=== PATIENT | female | born 1960 | race Caucasian/White ===

== ENCOUNTER → 2016-11-24 | Outpatient (CLI) | payer BC ==
[~2016-11-24] VITALS: Ht 172.7 cm; Wt 82.9 kg
[~2016-11-24] MED LIST: ASPI81TA28 PO; HYDR-4079 PO; MGNO400 PO; MULT-506 PO; ONDA8TAB6 PO; PROC1TAB5 PO; RANI150T3 PO; VENL75CA PO; magnesium PO
[2016-11-24 13:42] VITALS: Ht 172.7 cm; Wt 82.9 kg
--- NOTE | 2016-11-24 14:05 | PAT Medication Instructions ---
Service Date Nov 24, 2016. Current Home Medication List Aspirin (Aspirin Ec), 81 MG PO QAM Hydrocodone/Acetaminophen 10MG/325MG ([place] 10MG/325MG), 1-2 TABS PO Q4H PRN for Pain Ranitidine Hcl (Zantac), 75 MG PO QAM Venlafaxine Hcl (Effexor Xr), 1 CAP PO QAM Medication Instructions For Your Scheduled Surgery - Take the following medications the morning of surgery with a sip of water: Ranitidine Hcl (Zantac), 75 MG PO QAM Venlafaxine Hcl (Effexor Xr), 1 CAP PO QAM Hydrocodone/Acetaminophen 10MG/325MG ([place]hoe 10MG/325MG), 1-2 TABS PO Q4H PRN for Pain (can take up to four hours prior to surgery if needed) Aspirin (Aspirin Ec), 81 MG PO QAM - Take the following medications as scheduled the night before surgery: Hydrocodone/Acetaminophen 10MG/325MG ([place] 10MG/325MG), 1-2 TABS PO Q4H PRN for Pain If you have any questions please call us at [phone] or [phone] ( [place]) or [phone]
--- NOTE | 2016-11-24 14:46 | DIAGNOSTIC IMAGING REPORT ---
CHEST 2 VIEWS ROUTINE CLINICAL HISTORY: PAT preoperative evaluation COMPARISON STUDY: No previous studies for comparison. FINDINGS: Nodular density versus overlap artifact with the medial superior margin of the left scapula. Lungs otherwise are clear. No evidence for cardiac enlargement. IMPRESSION: Nodular density versus overlap artifact superior left chest. CT chest is recommended to exclude a solitary pulmonary nodule Electronically signed by: Avila Brar M.D. 11/24/2016 2:44 PM Dictated Date/Time: 11/24/2016 2:40 PM
[2016-11-24 15:00] LABS: HEMATOCRIT 40.6 % (37-47); MEAN CELL VOLUME 82.4 fL (80-100); MEAN CORPUSCULAR HEMOGLOBIN 26.8 pg (25-34); MEAN CORPUSCULAR HGB CONC 32.5 g/dl (32-36); MEAN PLATELET VOLUME 9.9 fL (7.4-10.4); PLATELET COUNT 345 K/uL (130-400); RED BLOOD COUNT 4.93 M/uL (4.2-5.4)
[2016-11-24 15:08] LABS: PARTIAL THROMBOPLASTIN RATIO 1.1; PROTHROMBIN TIME (PATIENT) 10.8 SECONDS (9.0-12.0)
[2016-11-24 15:17] LABS: URINE APPEARANCE CLEAR (CLEAR); URINE BILIRUBIN NEG (NEG); URINE COLOR YELLOW; URINE NITRITE POS (NEG); URINE PH 6.5 (4.5-7.5); URINE SPECIFIC GRAVITY 1.015 (1.000-1.030); UROBILINOGEN NEG (NEG); ZZUR CULT IF INDIC CLEAN CATCH YES
[2016-11-24 15:22] LABS: BUN/CREATININE RATIO 18.5 (10-20); CALCIUM 8.6 mg/dl (8.5-10.1); CREATININE 0.62 mg/dl (0.60-1.20); POTASSIUM 3.6 mmol/L (3.5-5.1)
[2016-11-24 15:30] LABS: MANUAL MICROSCOPIC REQUIRED? NO; REVIEW REQ? NO
[2016-11-24 17:07] LABS: BASO % 0.8 %; BASO ABS # 0.07 K/uL (0-0.2); COMPLETE YES; EOS % 2.6 %; IG% 0.2 %; LYMPH % 35.8 %; LYMPH ABS # 3.26 K/uL (1.2-3.4); MONO % 6.6 %; STOMATOCYTE 1+
== END | disposition home or self-care (01) ==
LOC: C.LAB 08:00 → EDSTATUS 12-13 07:25
PROVIDERS: ATTEND Orthopaedic Surgery
DX: Z01.810 Encounter for preprocedural cardiovascular examination (principal); Z01.811 Encounter for preprocedural respiratory examination; Z01.812 Encounter for preprocedural laboratory examination; R91.8 Other nonspecific abnormal finding of lung field

== ENCOUNTER → 2016-12-12 | Outpatient (CLI) | payer BC ==
--- NOTE | 2016-12-12 09:57 | DIAGNOSTIC IMAGING REPORT ---
PET/CT SKULL-THIGH CLINICAL HISTORY: Solitary pulmonary nodule COMPARISON STUDY: Chest x-ray dated 11/24/2016 FINDINGS: Within the neck, there is minor asymmetric right-sided nasopharyngeal and oropharyngeal activity. This finding is of questionable clinical significance. Activity within neck is otherwise physiologic. Within the thorax, there is no pathologic annie activity. There is a right paratracheal lymph node at the upper limits of normal in size measuring 1 cm in short axis. There is a 15 mm irregularly marginated left apical pulmonary nodule. This is FDG avid with SUV maximum of 3.5. This should be presumed neoplastic until proven otherwise. There is underlying pulmonary emphysema. Within the abdomen and pelvis, there is physiologic urinary tract and bowel activity. There is mild left adrenal gland thickening. Adrenal gland activity is not felt to exceed background solid organ activity. There is no pathologic hepatic activity. There is no pathologic annie activity within the abdomen or pelvis. Mild increased left hip activity is felt to be arthritic. IMPRESSION: 1. 15 mm irregular marginated left apical pulmonary nodule. This is FDG avid with SUV maximum of 3.5. The nodule is viewed as suspicious for a bronchogenic carcinoma 2. Mild left adrenal gland thickening, without pathologically increased FDG activity 3. Mild asymmetric increased activity involving the right nasal and oral pharynx, finding of questionable clinical significance Electronically signed by: Chance Meade M.D. 12/12/2016 9:54 AM Dictated Date/Time: 12/12/2016 9:43 AM
== END | disposition home or self-care (01) ==
LOC: C.PET 07:26
DX: R91.1 Solitary pulmonary nodule (principal)

== ENCOUNTER → 2016-12-19 | Outpatient (CLI) | payer BC ==
[~2016-12-19] VITALS: Ht 172.7 cm; Wt 81.8 kg
[~2016-12-19] MED LIST changes: +OPTIRAY 320 IV PRN
--- NOTE | 2016-12-19 14:12 | DIAGNOSTIC IMAGING REPORT ---
CT OF THE CHEST WITH IV CONTRAST CLINICAL HISTORY: Pulmonary mass COMPARISON STUDY: PET/CT scan dated 12/12/2016 TECHNIQUE: Following the IV administration of 93 mL of Optiray-320, CT of the thorax was performed from the thoracic inlet to the lung bases. Images are reviewed in the axial, sagittal, and coronal planes. IV contrast was administered without complication. CT DOSE: 272.77 mGy.cm FINDINGS: Thyroid: Imaged portions of the thyroid gland are normal in appearance. Thoracic aorta: The thoracic aorta is normal in course and caliber, noting standard 3-vessel arch anatomy. No aneurysm or dissection is seen. Pulmonary vasculature: The pulmonary trunk is normal in caliber. There are no central filling defects identified to suggest pulmonary embolus. Note that this examination was not protocoled for the evaluation of pulmonary emboli. HEART: The heart is normal in size and configuration, without pericardial effusion. Lungs and pleural spaces: There is a spiculated 14 mm left apical pulmonary nodule suspicious for a bronchogenic carcinoma. No pleural effusions are visualized. There is pulmonary emphysema. Mediastinum: There are no pathologic nodes by size criteria. There is a 15 x 8 mm lower right paratracheal lymph node. There are prevascular nodes measuring up to 6 mm in diameter. Kaycee: Hilar lymph nodes are the upper limits of normal in size. Axilla: Clear. Upper abdomen: There is mild hepatic steatosis. There is nodular thickening of the left adrenal gland. Skeletal structures: There are no lytic or blastic osseous lesions. IMPRESSION: 1. 14 mm spiculated left apical pulmonary nodule suspicious for bronchogenic carcinoma 2. No evidence of pathologic adenopathy by size criteria 3. Emphysema 4. Nodular thickening of the left adrenal gland Electronically signed by: Chance Meade M.D. 12/19/2016 2:10 PM Dictated Date/Time: 12/19/2016 2:06 PM
[2016-12-20 07:37] VITALS: Ht 172.7 cm; Wt 81.8 kg
== END | disposition home or self-care (01) ==
LOC: C.CTS 08:00 → EDSTATUS 12-29 12:00
PROVIDERS: ATTEND Internal Medicine Critical Care Medicine
DX: R91.1 Solitary pulmonary nodule (principal); J43.9 Emphysema, unspecified; E27.9 Disorder of adrenal gland, unspecified

== ENCOUNTER → 2016-12-26 | Outpatient (CLI) | payer BC ==
[~2016-12-26] MED LIST changes: -OPTIRAY 320 IV PRN
== END | disposition home or self-care (01) ==
LOC: C.LAB 15:10
PROVIDERS: ATTEND Surgery
DX: C34.90 Malignant neoplasm of unspecified part of unspecified bronchus or lung (principal)

== ENCOUNTER → 2016-12-27 | Outpatient (CLI) | payer BC ==
--- NOTE | 2016-12-28 11:44 | PULMONARY FUNCTION TEST ---
CLINICAL DATA: A 56-year-old female with height of 68 inches and a weight of [address] Glasgow for pulmonary function test prior to surgery. Spirometry pre- and post-bronchodilator, lung volumes, and DLCO were performed. FINDINGS: Pre-bronchodilator spirometry demonstrates mild obstructive small airways disease. FVC was 104% of predicted. FEV1 was 93% of predicted. XGL20-41 was 56% of predicted. There was improvement in small airway flow after inhaled bronchodilator. FVC remained the same at 104% of predicted. FEV1 improved 4% to 97% of predicted. AJO10-88 improved 32% to 74% of predicted. Lung volumes demonstrate moderate air trapping. Residual volume was 197% of predicted. DLCO was mildly reduced at 66% of predicted. IMPRESSION: Mild obstructive airways disease with improvement after inhaled bronchodilator. Moderate elevation of residual volume suggesting moderate air trapping on lung volumes. Mild reduction in DLCO.
== END | disposition home or self-care (01) ==
LOC: C.RC 07:49
PROVIDERS: ATTEND Surgery
DX: R91.1 Solitary pulmonary nodule (principal)

== ENCOUNTER 2016-12-30 05:10 | Inpatient (IN) | payer BC ==
[2016-12-20 07:37] VITALS: BMI 27.0
[2016-12-30] VITALS (10 sets, daily range): BP systolic 92–128; BP diastolic 57–83; PULSE 90–113; TEMP 36.4–37.3; O2SAT 92–100; Ht 172.7 cm; Wt 82.9 kg
[~2016-12-30] VITALS: Ht 172.7 cm; Wt 82.9 kg
[~2016-12-30 05:10] MED LIST changes: -MGNO400 PO; -MULT-506 PO; -ONDA8TAB6 PO; -PROC1TAB5 PO; -magnesium PO
[2016-12-30] MEDS ORDERED: LACTATED RINGER'S 1000ML 1,000 ML IV SCH (06:00)
[2016-12-30] MEDS ORDERED: DEXAMETHASONE SOD INJ 4 MG/ML VIAL ONE (06:39)
[2016-12-30] MEDS ORDERED: NEOSTIGMINE METHYLSULFATE 5 MG/5 ML SYR ONE (06:39)
[2016-12-30] MEDS ORDERED: GLYCOPYRROLATE INJ 0.2 MG/ML VIAL ONE (06:39)
[2016-12-30] MEDS ORDERED: PROPOFOL IV EMULSION 10 MG/ML 20 ML VIAL IV ONE (06:39)
[2016-12-30] MEDS ORDERED: LIDOCAINE HCL 2% 2 ML VIAL (20MG/ML) ONE (06:39)
[2016-12-30] MEDS ORDERED: ONDANSETRON INJ 2 MG/ML 2 ML VIAL ONE (06:39)
[2016-12-30] MEDS ORDERED: ROCURONIUM BROMIDE 10 MG/ML 5 ML VIAL ONE ×3 (06:39→10:40)
[2016-12-30] MEDS ORDERED: MIDAZOLAM HCL 1 MG/ML 2ML VIAL ONE (06:40)
[2016-12-30] MEDS ORDERED: FENTANYL CITRATE INJ 50 MCG/1 ML 2 ML VIAL ONE ×4 (06:40→13:16)
--- NOTE | 2016-12-30 06:52 | History & Physical Bridge Note ---
H&P Re-Evaluation Bridge Note: I have examined the patient, reviewed the History & Physical and in the interval since the performance of the History & Physical I have noted the following changes of clinical significance: No changes noted
[2016-12-30] MEDS ORDERED: BUPIVACAINE LIPOSOME 1/3% 266 MG/20 ML VIAL INFIL ONE (07:02)
[2016-12-30] MEDS ORDERED: SODIUM CHLORIDE 0.9% PF 50 ML VIAL ONE (07:02)
[2016-12-30] MEDS ORDERED: LACTATED RINGER'S 1000ML 1,000 ML IV PRN (08:10)
[2016-12-30] MEDS ORDERED: GELATIN SPONGE SZ 100 ONE (08:14)
[2016-12-30] MEDS ORDERED: ONDANSETRON INJ 2 MG/ML 2 ML VIAL IV PRN ×2 (08:15→12:45)
[2016-12-30] MEDS ORDERED: FENTANYL CITRATE INJ 50 MCG/1 ML 2 ML VIAL IV PRN (08:15)
[2016-12-30] MEDS ORDERED: HYDROmorphone INJ 1 MG/ML SYR IV PRN (08:15)
[2016-12-30 10:56] LABS: ISTAT CREATININE 0.4 mg/dl (0.6-1.3); ISTAT HEMOGLOBIN 13.6 g/dl (12.0-16.0); ISTAT IONIZED CALCIUM 1.13 mmol/l (1.12-1.32)
[2016-12-30] MEDS ORDERED: VASOPRESSIN 20 UNIT/ML VIAL ONE (11:56)
[2016-12-30] MEDS ORDERED: PHENYLEPHRINE 100MCG/ML 5ML SYR ONE (11:56)
[2016-12-30] MEDS ORDERED: SURGICEL ABSORB HEMOSTAT 2IN X 14IN TOP ONE (12:33)
[2016-12-30] MEDS ORDERED: ESMOLOL HCL 10 MG/ML 10 ML VIAL ONE (13:09)
--- NOTE | 2016-12-30 13:46 | DIAGNOSTIC IMAGING REPORT ---
CHEST ONE VIEW PORTABLE CLINICAL HISTORY: Left lung mass. COMPARISON STUDY: Chest CT December 19, 2016. FINDINGS: A left chest tube is directed toward the apex. Left paramediastinal opacity is present. There may be a small left apical pneumothorax. There is no evidence of pulmonary edema. IMPRESSION: 1. Left chest tube in place. Suspected small left apical pneumothorax. 2. Expected left hemithorax volume loss with left paramediastinal opacity which is likely postsurgical. Electronically signed by: Harshad Beasley M.D. 12/30/2016 1:45 PM Dictated Date/Time: 12/30/2016 1:43 PM
--- NOTE | 2016-12-30 14:31 | Anesthesiology Progress Note ---
Anesthesia Post Op Note Date & Time December 30, 2016 at 14:30 Vital Signs Pain Intensity: 3 Vital Signs Past 12 Hours Date Time Temp Pulse Resp B/P Pulse Ox O2 Delivery O2 Flow Rate FiO2 12/30/16 13:50 108 16 133/86 100 Nasal Cannula 4 12/30/16 13:40 36.6 107 16 130/79 100 Nasal Cannula 4 12/30/16 13:30 107 16 126/81 100 Mask 5 12/30/16 13:20 104 16 124/74 100 Mask 5 12/30/16 13:10 102 18 105/80 100 Mask 10 12/30/16 13:00 36.5 103 20 112/66 100 Mask 10 12/30/16 05:50 36.8 90 18 128/74 99 Room Air Notes Mental Status: alert / awake / arousable, participated in evaluation Pt Amnestic to Procedure: Yes Nausea / Vomiting: adequately controlled Pain: adequately controlled Airway Patency, RR, SpO2: stable & adequate BP & HR: stable & adequate Hydration State: stable & adequate Anesthetic Complications: no major complications apparent
[2016-12-30] MEDS: MoRPHine SULFATE 2 MG/ML CARP IV PRN (15:22)
[2016-12-30] MEDS: METOCLOPRAMIDE HCL INJ 5 MG/ML 2 ML VIAL IV. SCH ×2 (15:26→23:44)
[2016-12-30] MEDS: CEFAZOLIN IV 2,000 MG in DEXTROSE 5% 50ML 100 ML IV SCH ×2 (15:31→23:45)
[2016-12-30] MEDS: D5W AND 1/2NSS 1,000 ML IV SCH ×2 (15:31→23:46)
--- NOTE | 2016-12-30 16:12 | OPERATIVE REPORT ---
DATE OF OPERATION: 12/30/2016 PREOPERATIVE DIAGNOSIS: Hypermetabolic mass, left upper lobe. POSTOPERATIVE DIAGNOSIS: Nonsmall cell lung carcinoma, left upper lobe. PROCEDURES: 1. Video mediastinoscopy with frozen section. 2. Left thoracoscopy with wedge resection left upper lobe mass. 3. Thoracoscopic left upper lobectomy with mediastinal lymph node dissection. SURGEON: Dr. Glasgow. SHOE STAINER SURGEONS: Ton St PA-C and Alina Elizondo 3. ANESTHESIA: Endotracheal intubation with a double lumen tube. SPECIFICS OF PROCEDURE: Galina De Leon is a very nice 56-year-old female who was serendipitously found to have a mass in her left upper lobe which turned out to be hypermetabolic on PET scan. There was no evidence of extrathoracic spread. On 12/30/2016 I took the patient to the operating room and did a video mediastinoscopy with frozen section. There was right level 4 paratracheal node, which was a bit concerning to me as was a little enlarged and had some very mild uptake on PET scan. I biopsied level 2, level 4 and level 7 nodes. These were all negative for carcinoma. She tolerated this well. Then frozen section came back normal negative. We turned the patient and did a wedge resection of this left upper lobe mass thoracoscopically. We did have to lyse some adhesions. We sent this off for frozen section and this came back as a non-small cell lung carcinoma. I then performed a thoracoscopic left upper lobectomy without difficulty. I also did a lymph node dissection taking level 5, 6, 10, 11 and 12. She tolerated it well and was extubated in the room and we had no air leak. Blood loss was negligible. PROCEDURE: The patient was brought to the operating room, laid in supine position. General anesthesia induced and endotracheal intubation was performed. Her neck was extended. She was prepped and draped in the usual sterile fashion and after appropriate timeout had been called an incision was made one fingerbreadth above the sternal notch. The sharp and blunt dissection was done down to the trachea and then a video mediastinoscope was placed. I then came upon a level 2 and level 4 node on the right which were dissected out almost its entirety. I then biopsied the level 7. I did not really do anything on the left side as the nodes were very small and on PET they were not hypermetabolic. I then slowly removed the video mediastinoscope. I did place 1 piece of Surgicel in for some oozing. I did not use the cautery very much at all except on the right level 4 area. I slowly withdrew the video mediastinoscope. There was no bleeding. 3-0 Vicryl was used to close the strap muscles and 4-0 Monocryl was used during subcuticular fashion to approximate the wound edges. She tolerated it well. Frozen section came back as all 3 lymph nodes being negative for carcinoma. After placing antimicrobial dressings on her neck we then turned the patient into the right lateral decubitus position and her left chest was prepped and draped in usual sterile fashion. Three separate thoracoscopy incisions were made. I made the first one just anterior and one interspace below the tip of the scapula and using a Veress needle infused CO2. I then put a 5 mm port, and 5 mm 0 degree camera. It could be seen there were marked adhesions of the upper lobe. These appeared to be fairly flimsy. A 10 mm incision was made in about the 7th interspace anteriorly and then in the 4th interspace about a 3 cm incision was made. Using retraction and the Harmonic scalpel I took all these adhesions down. This went very well. We were able to get these adhesions down although there was oozing from the chest wall. This was controlled with the Aquamantys. Care was taken to avoid using this near the phrenic nerve or the subclavian vessels. The mass was then able to be palpated and I grasped this and used an Endo-HARLEY stapler. I fired several times and removed a fairly large mass in an Endobag and sent it off. While waiting for this, I completed the posterior fissure quite nicely actually and continuation of pulmonary artery in the fissure. The frozen section came back as showing nonsmall cell lung carcinoma. I then continued dissection superiorly from the posterior aspect. We then flipped the lung back posteriorly and worked anteriorly and freed up the pulmonary vein without difficulty. I biopsied level 10, level 5 and level 6 nodes at that time. I was then able to go easily across the vein and put an Endo-HARLEY stapler and fired. This freed up the artery and the bronchus. I then took the apical anterior branch of the left main pulmonary artery with the Endo-HARLEY stapler. This freed up things quite nicely. After biopsying the level 11 and level 12 node I was able to get around the left upper lobe bronchus. Endo-HARLEY stapler was fired and then when this freed up I could see there was 1 large artery left which was the origin of not only the lingular artery but also ascending branch. I fired an Endo-HARLEY stapler and after firing this, we had just the anterior fissure which was divided with Endo-HARLEY staplers. The lobe was delivered off the field in an Endobag. We inflated the lung, saw no significant air leak. Exparel 266 mg was reconstituted with 60 mL of normal saline and injected into the second to eleventh interspace intrathoracically. We then placed a 24-Greenlandic chest tube through the inferior anterior thoracoscopy port. I held it in place with heavy silk suture. 0 Vicryl was used to close the muscle layers of all 3 incisions and then 4-0 Monocryl used in running subcuticular fashion to approximate the wound edges. She tolerated it well and was extubated in the room. I attest to the content of the Intraoperative Record and any orders documented therein. Any exceptions are noted below. NESTOR
[2016-12-30] MEDS: KETOROLAC TROMETHAMINE 15 MG/ML VIAL IV. SCH ×2 (16:36→23:45)
[2016-12-30] MEDS: ACETAMINOPHEN IV 1,000 MG in EMPTY BAG 0 ML IV SCH ×2 (16:37→23:45)
[2016-12-30] MEDS: DOCUSATE SODIUM 100 MG CAP PO SCH (21:08)
[2016-12-30] MEDS: OXYCODONE HCL IR 5 MG TAB (IMMEDIATE RELEASE) PO PRN (21:11)
[2016-12-31] VITALS (10 sets, daily range): BP systolic 86–109; BP diastolic 49–67; PULSE 112–149; TEMP 36.5–37.1; O2SAT 91–96
[2016-12-31] MEDS: METOCLOPRAMIDE HCL INJ 5 MG/ML 2 ML VIAL IV. SCH (06:13)
[2016-12-31] MEDS: MoRPHine SULFATE 2 MG/ML CARP IV PRN ×4 (06:18→22:25)
[2016-12-31 06:42] LABS: BASO % 0.1 %; BASO ABS # 0.01 K/uL (0-0.2); EOS % 0.3 %; HEMATOCRIT 27.1 % (37-47); IG% 0.4 %; LYMPH % 13.1 %; LYMPH ABS # 2.21 K/uL (1.2-3.4); MEAN CELL VOLUME 84.2 fL (80-100); MEAN CORPUSCULAR HEMOGLOBIN 27.3 pg (25-34); MEAN CORPUSCULAR HGB CONC 32.5 g/dl (32-36); MEAN PLATELET VOLUME 9.6 fL (7.4-10.4); MONO % 9.1 %; PLATELET COUNT 287 K/uL (130-400); RED BLOOD COUNT 3.22 M/uL (4.2-5.4); WHITE BLOOD COUNT 16.85 K/uL (4.8-10.8)
[2016-12-31] MEDS ORDERED: NURSING VERBAL MED ORDER ONE ×3 (06:45→20:00)
[2016-12-31 07:10] LABS: COMPLETE YES
[2016-12-31 07:19] LABS: BUN/CREATININE RATIO 19.4 (10-20); CALCIUM 7.5 mg/dl (8.5-10.1); CREATININE 0.71 mg/dl (0.60-1.20); POTASSIUM 3.5 mmol/L (3.5-5.1)
[2016-12-31] MEDS: ACETAMINOPHEN IV 1,000 MG in EMPTY BAG 0 ML IV SCH ×2 (07:50→16:47)
[2016-12-31] MEDS: KETOROLAC TROMETHAMINE 15 MG/ML VIAL IV. SCH ×2 (07:51→16:42)
[2016-12-31] MEDS: DOCUSATE SODIUM 100 MG CAP PO SCH ×2 (08:56→20:48)
[2016-12-31] MEDS: RANITIDINE HCL 150 MG TAB PO SCH (08:56)
[2016-12-31] MEDS: VENLAFAXINE HCL XR 75 MG CAPXR PO SCH (08:56)
--- NOTE | 2016-12-31 08:58 | DIAGNOSTIC IMAGING REPORT ---
CHEST ONE VIEW PORTABLE HISTORY: lobectomy COMPARISON: Chest 12/30/2016. FINDINGS: Left-sided chest tube terminates in the left midlung zone. Small moderate left hydropneumothorax has increased in size. The heart is normal in size. Linear densities at the right lung base favor atelectasis. The apical component of the left pneumothorax has increased in size. Small left-sided chest wall subcutaneous emphysema. Left basilar densities have progressed. IMPRESSION: Left-sided chest tube terminates in the left midlung zone. There has been interval increase in size in the small to moderate left hydropneumothorax. Electronically signed by: Christoph Hadren M.D. 12/31/2016 8:57 AM Dictated Date/Time: 12/31/2016 8:55 AM
[2016-12-31] MEDS ORDERED: ENOXAPARIN 40 MG/0.4 ML SYR SQ SCH (09:00)
[2016-12-31] MEDS ORDERED: ASPIRIN 81 MG ECTAB PO SCH (09:00)
[2016-12-31] MEDS: D5W AND 1/2NSS 1,000 ML IV SCH ×2 (09:25→20:48)
[2016-12-31] MEDS: OXYCODONE HCL IR 5 MG TAB (IMMEDIATE RELEASE) PO PRN ×2 (09:35→20:47)
--- NOTE | 2016-12-31 11:33 | SURGERY PROGRESS NOTE ---
DATE: 12/31/2016 DATE: 12/31/2016. Mrs. De Leon is seen today 1 day status post a thoracoscopic left upper lobectomy for nonsmall cell lung carcinoma. She did not sleep well. She has more pain. Her chest tube put out about 200 mL of frankly dark blood. I stripped her tube as she had a clot in the tube and now this is draining. Mrs. De Leon was on aspirin preoperatively and it appears she does have a mild coagulopathy due to this. She has bruising around her posterior thoracostomy port which is a bit unusual. She has bruising in her right arm where she had a blood pressure cuff and she has bruising around her mediastinoscopy incision which is rather mild. Her incisions are clean. Her lung does not sound bad. She still is not coughing well. She really does not have an air leak but I am a bit concerned about her x-ray as there may be some bleeding. We will get her to ambulate in the scherer and will check a chest x-ray in the morning. In addition her hemoglobin is down which I am surprised at as we really did not have that much bleeding, although she does have a raw surface of her pleural cavity where we took adhesions down. We were meticulous in our hemostasis in dealing with this. I had a long talk with the patient and her sister and her . We will see how she looks in the morning.
[2016-12-31] MEDS ORDERED: SODIUM CHLORIDE 0.9% 1000ML 1,000 ML IV ONE (20:15)
[2017-01-01] VITALS (11 sets, daily range): BP systolic 97–119; BP diastolic 57–75; PULSE 102–112; TEMP 36.6–37.2; O2SAT 91–94
[2017-01-01] MEDS: ACETAMINOPHEN IV 1,000 MG in EMPTY BAG 0 ML IV SCH ×3 (00:07→16:49)
[2017-01-01] MEDS: KETOROLAC TROMETHAMINE 15 MG/ML VIAL IV. SCH ×2 (00:13→09:20)
[2017-01-01] MEDS: D5W AND 1/2NSS 1,000 ML IV SCH ×2 (06:02→16:44)
[2017-01-01 06:08] LABS: HEMATOCRIT 20.4 % (37-47); MEAN CORPUSCULAR HEMOGLOBIN 27.1 pg (25-34); MEAN CORPUSCULAR HGB CONC 31.9 g/dl (32-36); MEAN PLATELET VOLUME 9.3 fL (7.4-10.4); PLATELET COUNT 211 K/uL (130-400)
[2017-01-01] MEDS: OXYCODONE HCL IR 5 MG TAB (IMMEDIATE RELEASE) PO PRN ×3 (06:15→21:21)
--- NOTE | 2017-01-01 07:31 | DIAGNOSTIC IMAGING REPORT ---
CHEST ONE VIEW PORTABLE CLINICAL HISTORY: Lobectomy. COMPARISON STUDY: Chest radiograph December 31, 2016. FINDINGS: Right mid and lower lung opacity has progressed. A left chest tube remains in place. Left lung airspace opacity is similar to prior exam. A moderate left hydropneumothorax is likely slightly increased in size. IMPRESSION: 1. Slight increase in size of a moderate left hydropneumothorax. Left chest tube in place. 2. Progression of right mid and lower lung opacity which favors atelectasis although pneumonia could appear similar. Persistent left lung airspace opacity. Electronically signed by: Harshad Beasley M.D. 01/01/2017 7:29 AM Dictated Date/Time: 01/01/2017 7:27 AM
[2017-01-01] MEDS: RANITIDINE HCL 150 MG TAB PO SCH (09:09)
[2017-01-01] MEDS: DOCUSATE SODIUM 100 MG CAP PO SCH ×2 (09:09→21:20)
[2017-01-01] MEDS: VENLAFAXINE HCL XR 75 MG CAPXR PO SCH (09:09)
--- NOTE | 2017-01-01 09:33 | SURGERY PROGRESS NOTE ---
DATE: 01/01/2017 Ms. De Leon was seen today, postop day #2 status post a thoracoscopic left upper lobectomy for a non-small cell lung carcinoma. She was really hurting yesterday. In addition, she was not coughing well. Over the course of the night, she has coughed much better. She coughed up some green and yellow sputum. Her x-ray looks better today. Her hemoglobin dropped rather precipitously actually. I stripped her tube yesterday and she has drained out 1100 mL total; but about 800 mL since yesterday. I initially discussed this with the nurses, kept her n.p.o. and I was going to take her to the OR for an evacuation; however, when I got here and reviewed her film it could be seen that it did look much better than yesterday. She is on room air 97% sat. Her lungs sound better. More importantly to me is she feels much better. She has been making urine. I am going to hold off on surgery and I think that she just needs blood. Her blood pressure is now up to 102/66. She has made very good urine. I think that she is settled down now. She still has some evidence of blood superiorly and laterally, but I do not think it is enough to warrant an operation. We will continue her chest tube and have her up and ambulating. Hopefully, we can get her home soon. I cannot emphasize how much better she looks today. Her lungs sound better and she is coughing very well.
[2017-01-02] VITALS: O2SAT 91
[2017-01-02] MEDS: ACETAMINOPHEN IV 1,000 MG in EMPTY BAG 0 ML IV SCH ×3 (00:08→16:54)
[2017-01-02] MEDS: D5W AND 1/2NSS 1,000 ML IV SCH ×3 (02:23→21:49)
[2017-01-02 05:25] VITALS: O2SAT 86
[2017-01-02 05:26] VITALS: O2SAT 91
--- NOTE | 2017-01-02 07:25 | DIAGNOSTIC IMAGING REPORT ---
CHEST ONE VIEW PORTABLE CLINICAL HISTORY: lobectomy COMPARISON STUDY: 01/01/2017 FINDINGS: The left-sided chest tube remains unchanged in position. There is a small amount of air within the left pleural space. There is left-sided pleural fluid/thickening. There is a persistent left para mediastinal opacity measuring 7.5 cm. There are right middle lower lung zone airspace opacity similar to the preceding study.[ IMPRESSION: Stable findings Electronically signed by: Chance Meade M.D. 01/02/2017 7:24 AM Dictated Date/Time: 01/02/2017 7:23 AM
[2017-01-02 07:26] LABS: HEMATOCRIT 26.5 % (37-47); MEAN CELL VOLUME 85.8 fL (80-100); MEAN CORPUSCULAR HEMOGLOBIN 27.8 pg (25-34); MEAN CORPUSCULAR HGB CONC 32.5 g/dl (32-36); MEAN PLATELET VOLUME 9.5 fL (7.4-10.4); PLATELET COUNT 233 K/uL (130-400); RED BLOOD COUNT 3.09 M/uL (4.2-5.4); WHITE BLOOD COUNT 11.15 K/uL (4.8-10.8)
[2017-01-02 07:41] VITALS: BP 115/62; PULSE 105; TEMP 36.7; O2SAT 92
[2017-01-02 07:58] LABS: POTASSIUM 3.2 mmol/L (3.5-5.1)
[2017-01-02] MEDS: OXYCODONE HCL IR 5 MG TAB (IMMEDIATE RELEASE) PO PRN ×2 (08:11→13:59)
[2017-01-02] MEDS: VENLAFAXINE HCL XR 75 MG CAPXR PO SCH (08:11)
[2017-01-02] MEDS: RANITIDINE HCL 150 MG TAB PO SCH (08:12)
[2017-01-02] MEDS: DOCUSATE SODIUM 100 MG CAP PO SCH ×2 (08:12→21:01)
--- NOTE | 2017-01-02 08:36 | Anesthesiology Progress Note ---
Anesthesia Post Op Note Date & Time January 02, 2017 at 08:35 Vital Signs Pain Intensity: 7.0 Vital Signs Past 12 Hours Date Time Temp Pulse Resp B/P Pulse Ox O2 Delivery O2 Flow Rate FiO2 01/02/17 07:41 36.7 105 19 115/62 92 Room Air 01/02/17 05:26 91 Room Air 01/02/17 05:25 86 Room Air 01/02/17 00:00 91 Room Air 01/01/17 23:48 37.0 111 14 119/75 93 Nasal Cannula 2.0 Humidified Air Notes Mental Status: alert / awake / arousable, participated in evaluation Pt Amnestic to Procedure: Yes Nausea / Vomiting: adequately controlled Pain: adequately controlled Airway Patency, RR, SpO2: stable & adequate BP & HR: stable & adequate Hydration State: stable & adequate Anesthetic Complications: no major complications apparent
--- NOTE | 2017-01-02 09:07 | SURGERY PROGRESS NOTE ---
DATE: 01/02/2017 Ms. De Leon is seen today on postoperative day #3 status post thoracoscopic left upper lobectomy and takedown of dense adhesions. The patient has clinically improved. She had 2 units of blood yesterday. Hemoglobin is 8.6 today from 6.5 yesterday. She has only put out 140 mL of fluid from her chest tube which is serous in the last 24 hours. Her x-ray has not really changed. She does have some blood in her chest; however, she is on room air and able to ambulate. Otherwise, she actually sounds good on auscultation. I am going to leave this as it is. If her fluid drainage continues to decrease, we will pull her chest tube out tomorrow, and let her go home. I think she is going to resorb this in her chest.
[2017-01-02 15:36] VITALS: BP 112/68; PULSE 107; TEMP 37.3; O2SAT 90
[2017-01-02 23:51] VITALS: BP 134/77; PULSE 112; TEMP 37.1; O2SAT 91
[2017-01-03] MEDS: ACETAMINOPHEN IV 1,000 MG in EMPTY BAG 0 ML IV SCH ×2 (00:23→08:15)
[2017-01-03] MEDS: OXYCODONE HCL IR 5 MG TAB (IMMEDIATE RELEASE) PO PRN ×4 (00:25→21:01)
[2017-01-03 03:12] VITALS: BP 115/72; PULSE 101; TEMP 37; O2SAT 91
[2017-01-03 07:17] LABS: HEMATOCRIT 27.2 % (37-47); MEAN CELL VOLUME 85.3 fL (80-100); MEAN CORPUSCULAR HEMOGLOBIN 26.6 pg (25-34); MEAN CORPUSCULAR HGB CONC 31.3 g/dl (32-36); MEAN PLATELET VOLUME 9.1 fL (7.4-10.4); PLATELET COUNT 289 K/uL (130-400); RED BLOOD COUNT 3.19 M/uL (4.2-5.4); WHITE BLOOD COUNT 10.74 K/uL (4.8-10.8)
[2017-01-03 07:30] VITALS: BP 113/73; PULSE 100; TEMP 36.8; O2SAT 94
[2017-01-03 07:42] LABS: CREATININE 0.42 mg/dl (0.60-1.20)
[2017-01-03] MEDS: D5W AND 1/2NSS 1,000 ML IV SCH (08:15)
[2017-01-03] MEDS: DOCUSATE SODIUM 100 MG CAP PO SCH ×2 (08:16→20:21)
[2017-01-03] MEDS: RANITIDINE HCL 150 MG TAB PO SCH (08:16)
[2017-01-03] MEDS: VENLAFAXINE HCL XR 75 MG CAPXR PO SCH (08:16)
--- NOTE | 2017-01-03 09:29 | DIAGNOSTIC IMAGING REPORT ---
CHEST ONE VIEW PORTABLE HISTORY: lobectomy COMPARISON: Chest 01/02/2017. FINDINGS: Left-sided chest tube terminates within the left midlung zone. This remains unchanged. Small left hydropneumothorax is not significantly changed. Linear density within the right midlung zone favor subsegmental atelectasis. The heart is normal in size. Improved aeration within the left suprahilar airspace opacity. IMPRESSION: 1. No change in the small left hydropneumothorax. 2. Improved aeration within the left suprahilar density. Electronically signed by: Christoph Harden M.D. 01/03/2017 9:28 AM Dictated Date/Time: 01/03/2017 9:23 AM
[2017-01-03] MEDS: ACETAMINOPHEN 325 MG TAB PO SCH ×3 (10:00→21:02)
[2017-01-03 15:23] VITALS: BP 121/69; PULSE 112; TEMP 37.2; O2SAT 91
[2017-01-03 16:00] VITALS: O2SAT 91
--- NOTE | 2017-01-03 16:50 | SURGERY PROGRESS NOTE ---
DATE: 01/03/2017 SUBJECTIVE: Ms. De Leon seen today on 01/03/2015. She is now postoperative day #4 status post thorascopic left upper lobectomy. The patient looks much better. She has made quite a bit of urine. Her vital signs are stable. Her hemoglobin is stable at 8.5. Her lung sounds fairly clear bilaterally. She has no air leak. Her x-ray looks better today. She has better aeration. She has drained a bit too much to pull the tube. She drained 350 mL of serous fluid. We are going to wait and see how this looks tomorrow. ASSESSMENT AND PLAN: 1. Postoperative day #4. The patient appears to be stable. We will need to leave her chest tube in until her drainage decreases. MTDD
[2017-01-03 23:42] VITALS: BP 117/71; PULSE 106; TEMP 37.2; O2SAT 90
[2017-01-04 02:29] VITALS: BP 110/75; PULSE 103; O2SAT 94
[2017-01-04] MEDS: MoRPHine SULFATE 2 MG/ML CARP IV PRN (02:39)
[2017-01-04] MEDS: OXYCODONE HCL IR 5 MG TAB (IMMEDIATE RELEASE) PO PRN (04:35)
[2017-01-04] MEDS: ACETAMINOPHEN 325 MG TAB PO SCH ×2 (04:35→09:34)
[2017-01-04 07:32] VITALS: BP 124/79; PULSE 106; TEMP 36.9; O2SAT 94
--- NOTE | 2017-01-04 08:31 | Discharge Instructions ---
Discharge Instructions Date of Service January 04, 2017. Admission Reason for Admission: Left Lung Mass Discharge Discharge Diagnosis / Problem: Lung Cancer Discharge Goals Goal(s): Learn about illness Activity Recommendations Activity Limitations: as noted below Lifting Limitations: none . Instructions / Follow-Up Instructions / Follow-Up 1. Do not fly or SCUBA dive until cleared to do so by Dr. Glasgow. 2. You may remove dressings in 3 days and shower thereafter. No tub baths. 3. Office appointment with Dr. Glasgow in 1-2 weeks. You will need a chest x- ray prior to appointment. Office will call you with date and time of appointment. Current Hospital Diet Patient's current hospital diet: Regular Diet Discharge Diet Recommended Diet: Regular Diet Procedures Procedures Performed: Video Mediastinoscopy with Biopsy, Left Video Assisted Thoracoscopy with Wedge Resection, Left upper lobectomy Pending Studies Studies pending at discharge: no Medical Emergencies . Who to Call and When: Medical Emergencies: If at any time you feel your situation is an emergency, please call 911 immediately. . Non-Emergent Contact Non-Emergency issues call your: Surgeon Call Non-Emergent contact if: you have a fever, your pain is not controlled, wound has increased drainage . "Provider Documentation" section prepared by Jose St. . VTE Core Measure Inpt VTE Proph given/why not?: Enoxaparin (Lovenox)SQ
--- NOTE | 2017-01-04 08:41 | DIAGNOSTIC IMAGING REPORT ---
CHEST ONE VIEW PORTABLE CLINICAL HISTORY: CT removal tube removal COMPARISON STUDY: 01/03/2017 FINDINGS: Interval removal left-sided chest tube. Unchanging small left hydropneumothorax. Unchanging increased density left hemithorax. Unchanging atelectatic infiltrative change right infrahilar region. IMPRESSION: Interval removal left-sided chest tube. No change otherwise compared to the prior date. Electronically signed by: Avila Brar M.D. 01/04/2017 8:39 AM Dictated Date/Time: 01/04/2017 8:38 AM
--- NOTE | 2017-01-04 09:04 | DISCHARGE SUMMARY ---
DISCHARGE DIAGNOSES: 1. Non-small cell lung carcinoma, left upper lobe. 2. History of cigarette smoking. 3. Degenerative joint disease, left hip. HOSPITAL COURSE: Galina is a 56-year-old female, who has osteoarthritis of her left hip and was set to undergo a left hip replacement, underwent a preoperative chest x-ray and was found to have a mass in her left upper lobe. She was referred to me, worked up and felt that she would be a candidate for a resection. I was a bit concerned about a contralateral peritracheal node on the right. On 12/30/2016, I took the patient to the operating room and did a video mediastinoscopy and biopsied this right level 4, right level 2 and the level 7 node. They were all negative for carcinoma. She was then turned on her side and we did a thoracoscopic left upper lobe wedge resection. The frozen section showed this to be a carcinoma. We proceeded with an uncomplicated left upper lobectomy and mediastinal dissection. The patient had adhesions. We took them down from a fairly large area of the anterior lateral chest wall. We took these down without difficulty, but she did ooze. I used an Aquamantys to control bleeding and we lost about 200 mL total. She did well, really did not have an air leak. I was happy with her x-ray after surgery. The following morning, I was a bit concerned, however. Her chest tube is not draining and she had some blood. Her hemoglobin also dropped. I milked her tube and got a thrombus out and then her tubes started draining. She drained over 800 mL. Her hemoglobin to 6.8 and on postop day #2, I was prepared to take her back to the operating room. However, her x-ray had improved and she had improved clinically. She stopped draining. I did give her 2 units of blood. She had bruising around all of her incisions. I think she may have had a problem with platelet function. In fact, I was prepared to give her a unit of platelets; however, she then stopped bleeding. We held her Lovenox and her aspirin. She improved greatly. She is ambulating in the hallway. She is eating well. She was on room air. She sounded much better. X-ray had improved, although she still had some fluid in her chest. I removed her chest tube, as the drainage had decreased and become serous. She was discharged home on postop day #5. I reviewed her pathology and this showed she did have a non-small cell lung carcinoma. I had removed multiple lymph nodes and one had a 2-mm focus of carcinoma. She had N1 disease, making her stage II. I discussed this with Dr. Yann Knight, who will see her as an outpatient. Patient was discharged home on postop day #5. I will see her back in the office next week and then, we will get her set up to see Dr. Knight. [facility]
[2017-01-04] MEDS: RANITIDINE HCL 150 MG TAB PO SCH (09:32)
[2017-01-04] MEDS: VENLAFAXINE HCL XR 75 MG CAPXR PO SCH (09:32)
[2017-01-04] MEDS: DOCUSATE SODIUM 100 MG CAP PO SCH (09:33)
[2017-01-04 09:39] VITALS: BP 124/79; PULSE 106; TEMP 36.9; O2SAT 94
[2017-05-02] MEDS ORDERED: magnesium PO (09:18)
[2017-05-02] MEDS ORDERED: MULT-506 PO (09:18)
== END 2017-01-04 10:05 | disposition home or self-care (01) | DRG 165 ==
LOC: ENRESERVTM → ENRESERVDT → C.ACU 05:10 → C.MSW 12:42
PROVIDERS: ADMIT Surgery; ATTEND Surgery
PROC: 0BTG4ZZ Resection of Left Upper Lung Lobe, Percutaneous Endoscopic Approach (ICD-10-PCS; principal; 2016-12-30 07:15)
PROC: 07B74ZX Excision of Thorax Lymphatic, Percutaneous Endoscopic Approach, Diagnostic (ICD-10-PCS; principal; 2016-12-30 07:15)
DX: C34.12 Malignant neoplasm of upper lobe, left bronchus or lung (principal); F17.210 Nicotine dependence, cigarettes, uncomplicated; Z79.82 Long term (current) use of aspirin; Z79.899 Other long term (current) drug therapy; Z80.3 Family history of malignant neoplasm of breast

== ENCOUNTER → 2017-01-18 | Outpatient (CLI) | payer BC ==
[~2017-01-18] MED LIST changes: +MGNO400 PO; +MULT-506 PO; +ONDA8TAB6 PO; +PROC1TAB5 PO; +magnesium PO
--- NOTE | 2017-01-18 14:27 | DIAGNOSTIC IMAGING REPORT ---
TWO VIEW CHEST CLINICAL HISTORY: Non-small cell lung cancer. FINDINGS: PA and lateral chest radiographs are compared to study dated 01/04/2017 and correlated with chest CT dated 12/19/2016. The cardiomediastinal silhouette is unremarkable. Atherosclerotic calcification is noted in the thoracic aorta. Emphysema and chronic interstitial thickening are identified. There is a left hydropneumothorax, similar appearance to previous. There is approximately 3 cm of apical pleural separation. The patient's left upper lobe lesion seen by CT is not well visualized. There is improved aeration of the left lung as compared to 01/04/2017. The right lung appears clear. There is no right-sided pneumothorax. The skeletal structures are osteopenic. Degenerative change is noted in the thoracic spine. Trace subcutaneous emphysema is seen along the left chest wall. IMPRESSION: 1. Emphysema. 2. A small left-sided hydropneumothorax is similar in appearance to 01/04/2017. 3. The patient's known left upper lobe pulmonary lesion is not well visualized. 4. There is improved aeration of the left lung as compared to previous. Electronically signed by: Shan Fan M.D. 01/18/2017 2:25 PM Dictated Date/Time: 01/18/2017 2:21 PM
== END | disposition home or self-care (01) ==
LOC: C.RAD 13:52
PROVIDERS: ATTEND Physician Assistant
DX: C34.90 Malignant neoplasm of unspecified part of unspecified bronchus or lung (principal); J94.8 Other specified pleural conditions

== ENCOUNTER → 2017-02-16 | Outpatient (CLI) | payer BC ==
--- NOTE | 2017-02-16 11:17 | DIAGNOSTIC IMAGING REPORT ---
CHEST 2 VIEWS ROUTINE HISTORY: C34.90 Non-small cell lung [id number] COMPARISON: Chest 01/18/2017. FINDINGS: Small left apical hydropneumothorax has decreased in size. There is suture material at the left hilum consistent with postoperative change. Mild volume loss within the left hemithorax persists. The right lung remains clear. The heart is normal in size. IMPRESSION: Decrease in size in the small left apical hydropneumothorax. Electronically signed by: Christoph Harden M.D. 02/16/2017 11:16 AM Dictated Date/Time: 02/16/2017 11:14 AM
== END | disposition home or self-care (01) ==
LOC: C.RAD1850 10:17
PROVIDERS: ATTEND Physician Assistant
DX: J94.8 Other specified pleural conditions (principal); C34.90 Malignant neoplasm of unspecified part of unspecified bronchus or lung

== ENCOUNTER 2017-04-04 12:11 | Observation (INO) | payer BC ==
[2017-04-04] VITALS (9 sets, daily range): BP systolic 94–129; BP diastolic 57–75; PULSE 83–106; TEMP 36.5–36.9; O2SAT 95–99; Ht 172.7 cm; Wt 82.6 kg
[~2017-04-04] VITALS: Ht 172.7 cm; Wt 82.6 kg
[~2017-04-04 12:11] MED LIST changes: -MGNO400 PO; -MULT-506 PO; -ONDA8TAB6 PO; -PROC1TAB5 PO; -magnesium PO
[2017-04-04] MEDS ORDERED: SODIUM CHLORIDE 0.9% 1000ML 1,000 ML IV STA (12:51)
--- NOTE | 2017-04-04 12:56 | EMERGENCY ROOM VISIT NOTE ---
History Report prepared by Lidia: Etelvina Davis Under the Supervision of: Dr. Jason Valdez M.D. First contact with patient: 12:25 Chief Complaint: ABNORMAL LABS Stated Complaint: HEMOGLOBIN History of Present Illness The patient is a 56 year old white female who presents to the Emergency Room with complaints of persistent fatigue over the past several days. The patient reports a history of lung cancer and states that her last chemotherapy treatment was last Monday. She states that she had a partial lobectomy in December. The patient states that she takes 81 mg of aspirin daily. She additionally reports taking two anti-nausea medications, Effexor, and Hydrocodone daily. The patient reports intermittent left rib pain. She denies being on any antibiotics. She states that she intermittently coughs up clear sputum. The patient denies any history of blood clots. She denies any recent prolonged travel. The patient states that she is a nonsmoker and states that she occasionally drinks beer. She reports normal eating and drinking. The patient denies any fever, chills, nausea, vomiting, vaginal bleeding, melena, hematochezia, change in bowel movements or urination, or swelling in her lower legs. Source of History: patient Onset: past several days Position: other (global) Quality: other (fatigue) Timing: other (persistent) Associated Symptoms: + cough, No fevers, No chills, No nausea, No vomiting, No melena, No hematochezia, No urinary symptoms Note: Associated Symptoms: left rib pain Review of Systems See HPI for pertinent positives and negatives. A total of ten systems were reviewed and were otherwise negative. Past Medical & Surgical Medical Problems: (1) Lung cancer Family History No pertinent family history stated. Social History Smoking Status: Former Smoker Alcohol Use: occasionally Marital Status: Housing Status: lives with significant other Current/Historical Medications Scheduled Aspirin (Aspirin Ec), 81 MG PO QAM Ranitidine Hcl (Zantac), 150 MG PO BID Venlafaxine Hcl (Effexor Xr), 1 CAP PO QAM Scheduled PRN Hydrocodone/Acetaminophen 10MG/325MG (Hammond 10MG/325MG), 1-2 TABS PO Q4H PRN for Pain Ondansetron Hcl (Zofran), 8 MG PO Q8 PRN for Nausea Prochlorperazine Maleate (Compazine), 10 MG PO Q6H PRN for Nausea Allergies Coded Allergies: No Known Allergies (Unverified , 12/20/16) Physical Exam Vital Signs Date Time Temp Pulse Resp B/P (MAP) Pulse Ox O2 Delivery O2 Flow Rate FiO2 04/04/17 17:10 93 20 104/57 98 Room Air 04/04/17 15:51 90 18 116/63 96 Room Air 04/04/17 13:38 100 18 109/73 100 Room Air 04/04/17 12:18 36.7 116 18 102/66 97 Room Air Physical Exam GENERAL: Pale. Awake, alert, well-appearing, NAD HENT: Normocephalic, atraumatic. EYES: Normal conjunctiva. Sclera non-icteric. NECK: Supple. No nuchal rigidity. FROM. RESPIRATORY: CTAB, no rhonchi, wheezing, crackles CARDIAC: Tachycardic rate but regular rhythm, no MRG ABDOMEN: Soft, NTND, BS+ MSK: No chest wall TTP, no LE edema, negative Homans sign. NEURO: GCS 15, CN 2-12 intact, moves all 4s on command SKIN: No rash or jaundice noted. No petechia or bruising. Medical Decision & Procedures ER Provider Diagnostic Interpretation: X-ray: Per my interpretation, radiologist review. SINGLE VIEW CHEST CLINICAL HISTORY: Dyspnea. FINDINGS: An AP, portable, upright chest radiograph is compared to study dated 02/16/2017. Correlation is made with chest CT dated 12/19/2016. The examination is degraded by portable technique and patient rotation. The cardiomediastinal silhouette is unremarkable. There is atherosclerotic calcification of the thoracic aorta. Emphysema and chronic interstitial thickening are similar to previous. There is postoperative change and volume loss in the left lung consistent with left upper lobe resection. Pleural fluid is seen at the left apex. No airspace consolidation is seen typical for pneumonia and no pneumothorax is identified. The skeletal structures are osteopenic. The bony thorax is grossly intact. Arthritic change is noted in the thoracic spine. IMPRESSION: 1. No acute cardiopulmonary abnormality. 2. Emphysema and postoperative change from previous left upper lobectomy. Electronically signed by: Shan Fan M.D. 04/04/2017 1:53 PM Dictated Date/Time: 04/04/2017 1:51 PM Laboratory Results 04/04/17 12:55 Red Blood Count 2.83, Mean Corpuscular Volume 78.8, Mean Corpuscular Hemoglobin 25.4, Mean Corpuscular Hemoglobin Concent 32.3, Mean Platelet Volume 9.0, Neutrophils (%) (Auto) 34.7, Lymphocytes (%) (Auto) 62.9, Monocytes (%) (Auto) 0.6, Eosinophils (%) (Auto) 0.6, Basophils (%) (Auto) 0.6, Neutrophils # (Auto) 0.58, Lymphocytes # (Auto) 1.05, Monocytes # (Auto) 0.01, Eosinophils # (Auto) 0.01, Basophils # (Auto) 0.01 04/04/17 12:55 Test 04/04/17 12:55 04/04/17 13:18 White Blood Count 1.67 K/uL (4.8-10.8) Red Blood Count 2.83 M/uL (4.2-5.4) Hemoglobin 7.2 g/dL (12.0-16.0) Hematocrit 22.3 % (37-47) Mean Corpuscular Volume 78.8 fL (80-100) Mean Corpuscular Hemoglobin 25.4 pg (25-34) Mean Corpuscular Hemoglobin Concent 32.3 g/dl (32-36) Platelet Count 84 K/uL (130-400) Mean Platelet Volume 9.0 fL (7.4-10.4) Neutrophils (%) (Auto) 34.7 % Lymphocytes (%) (Auto) 62.9 % Monocytes (%) (Auto) 0.6 % Eosinophils (%) (Auto) 0.6 % Basophils (%) (Auto) 0.6 % Neutrophils # (Auto) 0.58 K/uL (1.4-6.5) Lymphocytes # (Auto) 1.05 K/uL (1.2-3.4) Monocytes # (Auto) 0.01 K/uL (0.11-0.59) Eosinophils # (Auto) 0.01 K/uL (0-0.5) Basophils # (Auto) 0.01 K/uL (0-0.2) RDW Standard Deviation 47.0 fL (36.4-46.3) RDW Coefficient of Variation 16.7 % (11.5-14.5) Immature Granulocyte % (Auto) 0.6 % Immature Granulocyte # (Auto) 0.01 K/uL (0.00-0.02) Platelet Estimate DECREASED Tear Drop Cells 1+ Prothrombin Time 11.0 SECONDS (9.0-12.0) Prothromb Time International Ratio 1.0 (0.9-1.1) Activated Partial Thromboplast Time 28.5 SECONDS (21.0-31.0) Partial Thromboplastin Ratio 1.1 Anion Gap 8.0 mmol/L (3-11) Est Creatinine Clear Calc Drug Dose 87.5 ml/min Estimated GFR () 95.6 Estimated GFR (Non- 82.5 BUN/Creatinine Ratio 20.9 (10-20) Calcium Level 8.6 mg/dl (8.5-10.1) Phosphorus Level 2.8 mg/dl (2.5-4.9) Magnesium Level 1.7 mg/dl (1.8-2.4) Troponin I < 0.015 ng/ml (0-0.045) Hepatitis C Antibody Screen NEG (NEG) Venous Blood pH 7.43 (7.36-7.41) Venous Blood Partial Pressure CO2 40 mmHg (38.0-50.0) Venous Blood Partial Pressure O2 21 mmHg Venous Blood HCO3 26 mmol/L Venous Blood Oxygen Saturation < 60.0 % Venous Blood Base Excess 1.2 mEq/L Lactic Acid Level 1.7 mmol/L (0.4-2.0) Laboratory results reviewed by me Medications Administered Medications (Trade) Dose Ordered Sig/Jose Route Start Time Stop Time Status Last Admin Dose Admin Sodium Chloride 1,000 ml @ 999 mls/hr Q1H1M STAT IV 04/04/17 12:51 04/04/17 13:51 DC 04/04/17 13:35 999 MLS/HR Magnesium Oxide (Mag-Ox Tab) 800 mg ONE STAT PO 04/04/17 14:33 04/04/17 14:34 DC 04/04/17 14:57 800 MG ECG Indication: weakness Rate (beats per minute): 96 Rhythm: normal sinus Findings: other (normal intervals, normal axis, no ST-S changes, no T wave inversions) ED Course 1235: The patient was evaluated in room C7. A complete history and physical exam was performed. 1427: I discussed the patients case with Dr. Rosales, Oncology. He agrees with the plan of care to transfuse the patient and follow up with him as an outpatient. 1459: I discussed the patients case with RANDALL Resendiz. She is going to evaluate the patient for further treatment. 1500: I reevaluated the patient and she is doing well. I discussed all the exam findings with her and I discussed the treatment plan. She verbalized complete understanding and agreement. She will be evaluated for further treatment. Medical Decision Triage Nursing notes reviewed. The patient's presentation and history were concerning for Anemia, coagulopathy , thrombocytopenia, PE, dehydration. The patient is a 56 year old white female who presents to the Emergency Room with complaints of persistent fatigue over the past several days. Patient was seen and evaluated at the bedside. Patient does not take any blood thinning medications. Patient has been symptomatic she's had dyspnea on exertion and shortness of breath. Patient's tachycardia more likely be related to her anemia. Patient's hemoglobin is 7.2. White count 1600 with absolute neutrophil count greater than 900. Patient is afebrile. Patient's platelet count greater than 80,000. I spoke with the patient's manager of change oncologist to agree to transfusion. I spoke with the blood bank unfortunately did not have any irradiated O- PRBCs. Thus the decision was made to admit in order to obtain PRBCs and transfuse the patient. I spoke with the hospitalist who agreed with the plan of care and the patient was admitted to the medicine service. Medication Reconcilliation Current Medication List: was personally reviewed by me Blood Pressure Screening Patient's blood pressure: Normal blood pressure Blood pressure disposition: Did not require urgent referral Consults Time Called: 1422 Consulting Physician: Dr. Rosales, Oncology Returned Call: [phone] I discussed the patients case with Dr. Rosales, Oncology. He agrees with the plan of care to transfuse the patient and follow up with him as an outpatient. Additional Consults: Time Called: 1446 Consulted Physician: RANDALL Resendiz Returned Call: [phone] Additional Comments: I discussed the patients case with RANDALL Resendiz. She is going to evaluate the patient for further treatment. Impression Primary Impression: Symptomatic anemia Additional Impressions: Shortness of breath Dyspnea on exertion Scribe Attestation The scribe's documentation has been prepared under my direction and personally reviewed by me in its entirety. I confirm that the note above accurately reflects all work, treatment, procedures, and medical decision making performed by me. Departure Information Dispostion Being Evaluated By Hospitalist Referrals Bright Ozuna M.D. (PCP) Problem Qualifiers
[2017-04-04] MEDS ORDERED: PROC1TAB5 PO (13:14)
[2017-04-04] MEDS ORDERED: ONDA8TAB6 PO (13:14)
[2017-04-04 13:24] LABS: BLOOD UREA NITROGEN 17 mg/dl (7-18); BUN/CREATININE RATIO 20.9 (10-20); CALCIUM 8.6 mg/dl (8.5-10.1); CARBON DIOXIDE 25 mmol/L (21-32); CHLORIDE 103 mmol/L (98-107); CREATININE 0.79 mg/dl (0.60-1.20); GLUCOSE 123 mg/dl (70-99); MAGNESIUM 1.7 mg/dl (1.8-2.4); POTASSIUM 3.4 mmol/L (3.5-5.1); SODIUM 136 mmol/L (136-145)
[2017-04-04 13:26] LABS: VEN BLD GAS O2 SATURATION < 60.0 %; VEN BLOOD GAS BASE EXCESS 1.2 mEq/L; VENOUS BLOOD GAS PCO2 40 mmHg (38.0-50.0); VENOUS BLOOD GAS PO2 21 mmHg
[2017-04-04 13:28] LABS: PARTIAL THROMBOPLASTIN RATIO 1.1
[2017-04-04 13:29] LABS: PHOSPHORUS 2.8 mg/dl (2.5-4.9)
--- NOTE | 2017-04-04 13:54 | DIAGNOSTIC IMAGING REPORT ---
SINGLE VIEW CHEST CLINICAL HISTORY: Dyspnea. FINDINGS: An AP, portable, upright chest radiograph is compared to study dated 02/16/2017. Correlation is made with chest CT dated 12/19/2016. The examination is degraded by portable technique and patient rotation. The cardiomediastinal silhouette is unremarkable. There is atherosclerotic calcification of the thoracic aorta. Emphysema and chronic interstitial thickening are similar to previous. There is postoperative change and volume loss in the left lung consistent with left upper lobe resection. Pleural fluid is seen at the left apex. No airspace consolidation is seen typical for pneumonia and no pneumothorax is identified. The skeletal structures are osteopenic. The bony thorax is grossly intact. Arthritic change is noted in the thoracic spine. IMPRESSION: 1. No acute cardiopulmonary abnormality. 2. Emphysema and postoperative change from previous left upper lobectomy. Electronically signed by: Shan Fan M.D. 04/04/2017 1:53 PM Dictated Date/Time: 04/04/2017 1:51 PM
[2017-04-04 13:55] LABS: HEMATOCRIT 22.3 % (37-47); MEAN CELL VOLUME 78.8 fL (80-100); MEAN CORPUSCULAR HEMOGLOBIN 25.4 pg (25-34); MEAN CORPUSCULAR HGB CONC 32.3 g/dl (32-36); PLATELET COUNT 84 K/uL (130-400); RED BLOOD COUNT 2.83 M/uL (4.2-5.4); WHITE BLOOD COUNT 1.67 K/uL (4.8-10.8)
[2017-04-04 13:56] LABS: BASO % 0.6 %; BASO ABS # 0.01 K/uL (0-0.2); COMPLETE YES; EOS % 0.6 %; IG% 0.6 %; LYMPH % 62.9 %; LYMPH ABS # 1.05 K/uL (1.2-3.4); MONO % 0.6 %; NEUT % 34.7 %; PLT ESTIMATE DECREASED; TEAR DROP CELLS 1+
[2017-04-04] MEDS ORDERED: MAGNESIUM OXIDE 400 MG TAB PO STA (14:33)
[2017-04-04] MEDS ORDERED: SODIUM CHLORIDE 0.9% 1000ML 1,000 ML IV SCH (18:00)
[2017-04-04] MEDS ORDERED: ACETAMINOPHEN 325 MG TAB PO PRN (18:00)
[2017-04-04] MEDS ORDERED: ZOLPIDEM TARTRATE 5 MG TAB PO PRN (18:00)
[2017-04-04] MEDS ORDERED: ONDANSETRON INJ 2 MG/ML 2 ML VIAL IV PRN (18:00)
[2017-04-04] MEDS ORDERED: HYDROCODONE/ACETAMI 10/325 TAB PO PRN (18:00)
--- NOTE | 2017-04-04 18:31 | Medical Student: [facility] ---
Med Student History & Physical Date & Time of Service: Apr 04, 2017 at 16:55 Chief Complaint: Hemoglobin Primary Care Physician: Bright Ozuna M.D. History of Present Illness Source: patient, clinic records, hospital records Mrs. De Leon is a 56yo female with a history of adenocarcinoma of the lung s/p left upper-lobe lobectomy and who is currently undergoing adjuvant chemotherapy who presented to the ED with shortness of breath and fatigue for the past 7 days. She is on her fourth cycle of chemotherapy and reports that this dyspnea is not new to her but that she was sent to the ED after recent bloodwork showed H/H 7.2/22.3. She gets short of breath just getting out of the shower and putting on clothing. She has nausea but this is not new to her. No cardiac history. No history of blood clots of bleeding. No recent illnesses or infections. She denies fever, chills, chest pain, palpitations, pleuritic chest pain, hematuria, hematochezia, numbness/tingling, calf pain. She is on neutropenic precautions for neutrophil count 0.58K/uL. PCP: Dr. Ozuna Onc: Dr. Knight Past Medical/Surgical History Medical Problems: (1) Dyspnea on exertion Status: Acute (2) Shortness of breath Status: Acute (3) Symptomatic anemia Status: Acute Family History breast cancer diabetes mellitus Social History Smoking Status: Former Smoker (1ppd for 40 years) Smokeless Tobacco Use: No Alcohol Use: occasionally Drug Use: none Marital Status: Housing status: lives with significant other Occupational Status: disabled Allergies Coded Allergies: No Known Allergies (Unverified , 12/20/16) Medications Aspirin (Aspirin Ec), 81 MG PO QAM Hydrocodone/Acetaminophen 10MG/325MG ([place] 10MG/325MG), 1-2 TABS PO Q4H PRN for Pain Magnesium Oxide (Magnesium-Oxide), 1 TAB PO BID Ondansetron Hcl (Zofran), 8 MG PO Q8 PRN for Nausea Prochlorperazine Maleate (Compazine), 10 MG PO Q6H PRN for Nausea Ranitidine Hcl (Zantac), 150 MG PO BID Venlafaxine Hcl (Effexor Xr), 1 CAP PO QAM Review of Systems Constitutional: No fever, No chills Eyes: No worsening of vision, No diplopia ENT: No sore throat, No trouble swallowing Respiratory: + shortness of breath, + dyspnea on exertion, No cough, No wheezing, No dyspnea at rest, No hemoptysis Cardiovascular: No chest pain, No palpitations Abdomen: + nausea, + constipation, No pain, No vomiting, No diarrhea, No GI bleeding Musculoskeletal: No joint pain, No muscle pain, No calf pain Genitourinary - Female: No dysuria, No urinary incontinence, No hematuria Neurologic: No paralysis, No weakness, No vertigo Hematologic / Lymphatic: No abnormal bleeding/bruising, No clotting problems Integumentary: No rash, No itch Physical Exam Vital Signs (24 Hours) Date Time Temp Pulse Resp B/P (MAP) Pulse Ox O2 Delivery O2 Flow Rate FiO2 04/04/17 15:51 90 18 116/63 96 Room Air 04/04/17 13:38 100 18 109/73 100 Room Air 04/04/17 12:18 36.7 116 18 102/66 97 Room Air General Appearance: WD/WN, no apparent distress (able to speak in full sentences) Head: normocephalic, atraumatic Eyes: normal inspection, PERRL, EOMI ENT: normal ENT inspection, hearing grossly normal, pharynx normal (MMM) Neck: supple, no adenopathy, no carotid bruits Respiratory/Chest: lungs clear, no respiratory distress, no accessory muscle use, + decreased breath sounds (left upper lung field) Cardiovascular: no gallop, no murmur, normal peripheral pulses, + tachycardia Abdomen/GI: normal bowel sounds, non tender, soft Extremities/Musculoskelatal: normal inspection, no calf tenderness Neurologic/Psych: no motor/sensory deficits, alert, oriented x 3 Skin: normal color, warm/dry, no rash Lymphatic: no adenopathy Diagnostics Laboratory Results Results Past 24 Hours Test 04/04/17 12:55 04/04/17 13:18 Range/Units White Blood Count 1.67 4.8-10.8 K/uL Red Blood Count 2.83 4.2-5.4 M/uL Hemoglobin 7.2 12.0-16.0 g/dL Hematocrit 22.3 37-47 % Mean Corpuscular Volume 78.8 80-100 fL Mean Corpuscular Hemoglobin 25.4 25-34 pg Mean Corpuscular Hemoglobin Concent 32.3 32-36 g/dl Platelet Count 84 130-400 K/uL Mean Platelet Volume 9.0 7.4-10.4 fL Neutrophils (%) (Auto) 34.7 % Lymphocytes (%) (Auto) 62.9 % Monocytes (%) (Auto) 0.6 % Eosinophils (%) (Auto) 0.6 % Basophils (%) (Auto) 0.6 % Neutrophils # (Auto) 0.58 1.4-6.5 K/uL Lymphocytes # (Auto) 1.05 1.2-3.4 K/uL Monocytes # (Auto) 0.01 0.11-0.59 K/uL Eosinophils # (Auto) 0.01 0-0.5 K/uL Basophils # (Auto) 0.01 0-0.2 K/uL RDW Standard Deviation 47.0 36.4-46.3 fL RDW Coefficient of Variation 16.7 11.5-14.5 % Immature Granulocyte % (Auto) 0.6 % Immature Granulocyte # (Auto) 0.01 0.00-0.02 K/uL Platelet Estimate DECREASED Tear Drop Cells 1+ Prothrombin Time 11.0 9.0-12.0 SECONDS Prothromb Time International Ratio 1.0 0.9-1.1 Activated Partial Thromboplast Time 28.5 21.0-31.0 SECONDS Partial Thromboplastin Ratio 1.1 Sodium Level 136 136-145 mmol/L Potassium Level 3.4 3.5-5.1 mmol/L Chloride Level 103 98-107 mmol/L Carbon Dioxide Level 25 21-32 mmol/L Anion Gap 8.0 3-11 mmol/L Blood Urea Nitrogen 17 7-18 mg/dl Creatinine 0.79 0.60-1.20 mg/dl Est Creatinine Clear Calc Drug Dose 87.5 ml/min Estimated GFR () 95.6 Estimated GFR (Non- 82.5 BUN/Creatinine Ratio 20.9 10-20 Random Glucose 123 70-99 mg/dl Calcium Level 8.6 8.5-10.1 mg/dl Phosphorus Level 2.8 2.5-4.9 mg/dl Magnesium Level 1.7 1.8-2.4 mg/dl Troponin I < 0.015 0-0.045 ng/ml Venous Blood pH 7.43 7.36-7.41 Venous Blood Partial Pressure CO2 40 38.0-50.0 mmHg Venous Blood Partial Pressure O2 21 mmHg Venous Blood HCO3 26 mmol/L Venous Blood Oxygen Saturation < 60.0 % Venous Blood Base Excess 1.2 mEq/L Lactic Acid Level 1.7 0.4-2.0 mmol/L Diagnostic Radiology SINGLE VIEW CHEST CLINICAL HISTORY: Dyspnea. FINDINGS: An AP, portable, upright chest radiograph is compared to study dated 02/16/2017. Correlation is made with chest CT dated 12/19/2016. The examination is degraded by portable technique and patient rotation. The cardiomediastinal silhouette is unremarkable. There is atherosclerotic calcification of the thoracic aorta. Emphysema and chronic interstitial thickening are similar to previous. There is postoperative change and volume loss in the left lung consistent with left upper lobe resection. Pleural fluid is seen at the left apex. No airspace consolidation is seen typical for pneumonia and no pneumothorax is identified. The skeletal structures are osteopenic. The bony thorax is grossly intact. Arthritic change is noted in the thoracic spine. IMPRESSION: 1. No acute cardiopulmonary abnormality. 2. Emphysema and postoperative change from previous left upper lobectomy. Electronically signed by: Shan Fan M.D. 04/04/2017 1:53 PM Dictated Date/Time: 04/04/2017 1:51 PM EKG sinus tachycardia rate ~100bpm Impression Assessment and Plan This is a 56yo female with a history of adenocarcinoma of the lung s/p left upper-lobe lobectomy and who is currently undergoing adjuvant chemotherapy ( gemcitabine) who presents with generalized fatigue and dyspnea on exertion for the past 7 days. Hemoglobin 7.2. She also shows signs of pancytopenia: WBC 1.67 , neut # 0.58, platelets 84, peripheral smear shows presence of dacrocytes. CXR shows left upper post-lobectomy changes. EKG sinus tachycardia. ABG unremarkable. Given these findings the most likely cause of her RAY and fatigue is chemotherapy-induced anemia. The differential includes PE, iron-deficiency anemia. The presence of dacrocytes raises the question of myelofibrosis. Plan: Neutropenic precautions 1. Anemia, Hb 7.2 -admit to tele for observation of tachycardia and transfusion reactions -type and cross completed, patient is blood type O-, will require leukoreduced blood -AM CBC w/o diff to follow H/H -AM BMP 2. MIKE adenocarcinoma s/p left upper lobectomy on chemotherapy (gemcitabine) -follows with Dr. Knight -zofran 8mg PO q8h prn nausea -compazine 10mg PO q6h prn nausea -hydrocodone 10/325mg PO q4h prn pain 3. Hypokalemia -consider KCl 20meq 4. Hypomagnesemia -received magnesium hydroxide 800mg PO in ED -repeat mag level in AM 5. Constipation -continue home senna prn -continue home colace prn 6. Depression -continue home effexor 75mg PO daily 7. GERD -continue home ranitidine 150mg PO daily 8. Diet -regular diet 9. DVT prophylaxis -lovenox 40mg sc daily -SCD -patient may ambulate as tolerated Level of Care Telemetry (observation) Advanced Directives Existing Advance Directive: Yes DVT Prophylaxis enoxaparin (Lovenox) SQ, SCDs Social Service Consult None Apply Reviewed: Pt Seen/Exam by Me History See my note for details. Assessment/Plan Per H&P: 56yo female with h/o left lung adenocarcinoma s/p MIKE lobectomy, currently on cycle #4 of chemotherapy, who presents with fatigue, dyspnea on exertion, and sob. She had routine blood work earlier today by her oncologist demonstrating a hemoglobin of 7.4. She also reports headache and dizziness. No palpitations. No chest pain. No blood per rectum, melena, or hematuria. Denies abdominal pain. Because of the low hemoglobin she received a call from her oncologist, Dr. Knight, who recommended she come to the ER for evaluation and probable PRBCs. 56yo female with h/o left lung adenocarcinoma s/p MIKE lobectomy, currently on cycle #4 of chemotherapy, presenting with symptomatic anemia. 1. symptomatic neutropenic anemia in the setting of chemotherapy-induced pancytopenia Afebrile Sx resolved s/p 2 units PRBCs, irradiated due to neutropenia. Hb this AM is 8.1, but asx CBC on 04/07 pancytopenia - due to recent chemotherapy hypokalemia - due to poor oral intake; replace Improved, monitor Hypomagnesemia - replaced and stable PO Mg for d/c and monitor Adenocarcinoma of left lung - followed by Dr. Knight. neutropenia - 2nd to chemotherapy - no fever or infectious symptoms Mood d/o - continue outpatient meds
[2017-04-04] MEDS ORDERED: DiphenhydrAMINE HCL 50 MG/ML VIAL IV SCH (20:00)
[2017-04-04] MEDS ORDERED: ACETAMINOPHEN 500 MG TAB PO SCH (20:00)
[2017-04-04] MEDS: POTASSIUM CHLORIDE 20 MEQ TABCR PO SCH (21:10)
[2017-04-04] MEDS: RANITIDINE HCL 150 MG TAB PO SCH (21:10)
[2017-04-04] MEDS ORDERED: IV FLUIDS COMPLETED PRN (21:30)
--- NOTE | 2017-04-04 23:08 | History and Physical ---
History & Physical Date & Time of Service: Apr 04, 2017 at 17:37 Chief Complaint: Hemoglobin Primary Care Physician: Bright Ozuna M.D. History of Present Illness Source: patient, spouse 56yo female with h/o left lung adenocarcinoma s/p MIKE lobectomy, currently on cycle #4 of chemotherapy, who presents with fatigue, dyspnea on exertion, and sob. She had routine blood work earlier today by her oncologist demonstrating a hemoglobin of 7.4. She also reports headache and dizziness. No palpitations. No chest pain. No blood per rectum, melena, or hematuria. Denies abdominal pain. Because of the low hemoglobin she received a call from her oncologist, Dr. Knight, who recommended she come to the ER for evaluation and probable PRBCs. Past Medical/Surgical History PMH: 1. left-lung adenocarcinoma - dx 2016 2. COPD 3. depression 4. anxiety disorder 5. h/o esophagitis PSH: 1. s/p MIKE lobectomy - Wang Glasgow MD 2. BTL 3. tonsillectomy/adenoidectomy Family History mother - breast cancer father - no pmh h/o T2DM Social History Smoking Status: Former Smoker (1ppd for 40 years) Smokeless Tobacco Use: No Alcohol Use: occasionally Drug Use: none Marital Status: Housing status: lives with family Occupational Status: disabled Allergies Coded Allergies: No Known Allergies (Unverified , 12/20/16) Home Medications Scheduled Aspirin (Aspirin Ec), 81 MG PO QAM Ranitidine Hcl (Zantac), 150 MG PO BID Venlafaxine Hcl (Effexor Xr), 1 CAP PO QAM Scheduled PRN Hydrocodone/Acetaminophen 10MG/325MG ([place] 10MG/325MG), 1-2 TABS PO Q4H PRN for Pain Ondansetron Hcl (Zofran), 8 MG PO Q8 PRN for Nausea Prochlorperazine Maleate (Compazine), 10 MG PO Q6H PRN for Nausea Review of Systems Constitutional: + fatigue, No fever, No chills, No sweats, No weight loss ENT: No sore throat, No trouble swallowing Respiratory: + shortness of breath, + dyspnea on exertion Cardiovascular: No chest pain, No orthopnea, No PND, No edema, No palpitations Abdomen: No pain, No nausea, No vomiting, No diarrhea Musculoskeletal: No joint pain Genitourinary - Female: No dysuria, No hematuria Psychiatric: + depression symptoms, + anxiety Endocrine: + fatigue Hematologic / Lymphatic: No abnormal bleeding/bruising Integumentary: No rash Physical Exam Vital Signs Date Time Temp Pulse Resp B/P (MAP) Pulse Ox O2 Delivery O2 Flow Rate FiO2 04/04/17 17:10 93 20 104/57 98 Room Air 04/04/17 15:51 90 18 116/63 96 Room Air 04/04/17 13:38 100 18 109/73 100 Room Air 04/04/17 12:18 36.7 116 18 102/66 97 Room Air General Appearance: no apparent distress Head: normocephalic, atraumatic Eyes: PERRL ENT: pharynx normal (no thrush or mucositis) Neck: supple, no adenopathy, thyroid normal, no JVD Respiratory/Chest: lungs clear, no respiratory distress, no accessory muscle use, + decreased breath sounds (MIKE, anterior chest) Cardiovascular: no gallop, normal peripheral pulses, + tachycardia, + systolic murmur (1/6 ARTIS LSB) Abdomen/GI: normal bowel sounds, non tender, soft, no organomegaly Back: normal inspection Extremities/Musculoskelatal: no pedal edema Neurologic/Psych: no motor/sensory deficits, alert, normal mood/affect, normal reflexes, oriented x 3 Skin: + pallor Lymphatic: no adenopathy (cervical ) Diagnostics Laboratory Results Results Past 24 Hours Test 04/04/17 12:55 04/04/17 13:18 Range/Units White Blood Count 1.67 4.8-10.8 K/uL Red Blood Count 2.83 4.2-5.4 M/uL Hemoglobin 7.2 12.0-16.0 g/dL Hematocrit 22.3 37-47 % Mean Corpuscular Volume 78.8 80-100 fL Mean Corpuscular Hemoglobin 25.4 25-34 pg Mean Corpuscular Hemoglobin Concent 32.3 32-36 g/dl Platelet Count 84 130-400 K/uL Mean Platelet Volume 9.0 7.4-10.4 fL Neutrophils (%) (Auto) 34.7 % Lymphocytes (%) (Auto) 62.9 % Monocytes (%) (Auto) 0.6 % Eosinophils (%) (Auto) 0.6 % Basophils (%) (Auto) 0.6 % Neutrophils # (Auto) 0.58 1.4-6.5 K/uL Lymphocytes # (Auto) 1.05 1.2-3.4 K/uL Monocytes # (Auto) 0.01 0.11-0.59 K/uL Eosinophils # (Auto) 0.01 0-0.5 K/uL Basophils # (Auto) 0.01 0-0.2 K/uL RDW Standard Deviation 47.0 36.4-46.3 fL RDW Coefficient of Variation 16.7 11.5-14.5 % Immature Granulocyte % (Auto) 0.6 % Immature Granulocyte # (Auto) 0.01 0.00-0.02 K/uL Platelet Estimate DECREASED Tear Drop Cells 1+ Prothrombin Time 11.0 9.0-12.0 SECONDS Prothromb Time International Ratio 1.0 0.9-1.1 Activated Partial Thromboplast Time 28.5 21.0-31.0 SECONDS Partial Thromboplastin Ratio 1.1 Sodium Level 136 136-145 mmol/L Potassium Level 3.4 3.5-5.1 mmol/L Chloride Level 103 98-107 mmol/L Carbon Dioxide Level 25 21-32 mmol/L Anion Gap 8.0 3-11 mmol/L Blood Urea Nitrogen 17 7-18 mg/dl Creatinine 0.79 0.60-1.20 mg/dl Est Creatinine Clear Calc Drug Dose 87.5 ml/min Estimated GFR () 95.6 Estimated GFR (Non- 82.5 BUN/Creatinine Ratio 20.9 10-20 Random Glucose 123 70-99 mg/dl Calcium Level 8.6 8.5-10.1 mg/dl Phosphorus Level 2.8 2.5-4.9 mg/dl Magnesium Level 1.7 1.8-2.4 mg/dl Troponin I < 0.015 0-0.045 ng/ml Venous Blood pH 7.43 7.36-7.41 Venous Blood Partial Pressure CO2 40 38.0-50.0 mmHg Venous Blood Partial Pressure O2 21 mmHg Venous Blood HCO3 26 mmol/L Venous Blood Oxygen Saturation < 60.0 % Venous Blood Base Excess 1.2 mEq/L Lactic Acid Level 1.7 0.4-2.0 mmol/L Diagnostic Radiology cxr - IMPRESSION: 1. No acute cardiopulmonary abnormality. 2. Emphysema and postoperative change from previous left upper lobectomy. EKG EKG - NSR, no ST changes, normal intervals Impression Assessment and Plan 56yo female with h/o left lung adenocarcinoma s/p MIKE lobectomy, currently on cycle #4 of chemotherapy, presenting with symptomatic anemia. 1. symptomatic anemia in the setting of chemotherapy-induced pancytopenia - will Tx 2 units PRBCs, irradiated due to neutropenia. Repeat CBC in am. Benadryl/tylenol prior. 2. pancytopenia - due to recent chemotherapy - repeat CBC in am. 3. hypokalemia - due to poor oral intake; replace, repeat BMP in am. 4. hypomagnesemia - already replaced in ED; repeat mag in am. 5. adenocarcinoma of left lung - followed by Dr. Knight. 6. neutropenia - 2nd to chemotherapy - neutropenic precautions, repeat CBC in am. Fortunately no fever or infectious symptoms at this time. 7. DVT proph - due to thrombocytopenia chemical means relatively contraindicated; SCDs for now. 8. mood d/o - continue outpatient meds anticipate d/c in AM if CBC is stable and patient is feeling well Advanced Directives Existing Advance Directive: Yes VTE Prophylaxis VTE Risk Assessment Done? Y/N: Yes Risk Level: Moderate Note total time - 60 minutes, patient to be placed on observation status Additional Copies To Bright Ozuna M.D.; Irving Knight D.O.
[2017-04-05 00:09] VITALS: BP 100/64; PULSE 89; O2SAT 93
[2017-04-05 00:30] VITALS: BP 97/61; PULSE 91; TEMP 36.7; O2SAT 96
[2017-04-05 01:30] VITALS: BP 102/62; PULSE 86; TEMP 36.7; O2SAT 96
[2017-04-05 03:20] VITALS: BP 93/58; PULSE 91; TEMP 36.8; O2SAT 97
[2017-04-05 07:02] VITALS: BP 96/62; PULSE 88; TEMP 37.2; O2SAT 96
[2017-04-05 07:06] LABS: HEMATOCRIT 24.3 % (37-47); MEAN CELL VOLUME 79.2 fL (80-100); MEAN CORPUSCULAR HEMOGLOBIN 26.4 pg (25-34); MEAN CORPUSCULAR HGB CONC 33.3 g/dl (32-36); MEAN PLATELET VOLUME 9.2 fL (7.4-10.4); PLATELET COUNT 48 K/uL (130-400); RED BLOOD COUNT 3.07 M/uL (4.2-5.4); WHITE BLOOD COUNT 1.74 K/uL (4.8-10.8)
--- NOTE | 2017-04-05 07:11 | Medical Student: [facility] ---
Med Student Progress Note Date of Service Apr 05, 2017. Subjective Pt evaluation today including: conversation w/ patient, physical exam, chart review, lab review Voiding: no voiding problems Patient examined sitting up in bed this morning. She received 2 units of pRBCs late last night and feels less tired today than she has felt in the past week. Denies fever, chills, headache, dizziness, lightheadedness, cp, palpitations, sob, abdominal pain, n/v/d, itchiness, skin rash, calf pain. No other complaints at this time. Review of Systems Constitutional: No fever, No chills, No sweats Eyes: No worsening of vision, No diplopia ENT: No sore throat, No trouble swallowing Respiratory: No cough, No shortness of breath Cardiac: No chest pain, No palpitations Abdomen: No pain, No nausea, No vomiting, No diarrhea Musculoskeletal: No muscle pain, No calf pain Female : No dysuria, No incontinence Neurologic: No weakness, No numbness/tingling Heme: No abnormal bleeding/bruising, No clotting problems Skin: No rash, No itch Objective Vital Signs Date Time Temp Pulse Resp B/P (MAP) Pulse Ox O2 Delivery O2 Flow Rate FiO2 04/05/17 07:02 37.2 88 15 96/62 (73) 96 Room Air 04/05/17 05:04 Room Air 04/05/17 03:20 36.8 91 18 93/58 (70) 97 Room Air 04/05/17 01:30 36.7 86 17 102/62 96 04/05/17 00:30 36.7 91 15 97/61 96 04/05/17 00:09 89 15 100/64 93 04/04/17 23:59 Room Air 04/04/17 23:45 36.7 90 18 96/60 96 04/04/17 23:15 36.7 98 18 94/57 97 04/04/17 22:41 36.9 96 18 98/60 96 04/04/17 21:50 36.9 97 18 97/59 95 04/04/17 20:50 36.6 83 18 101/62 97 04/04/17 20:25 36.7 102 18 109/68 95 04/04/17 20:08 36.8 98 18 109/69 97 04/04/17 19:30 36.5 106 18 129/75 (93) 99 Room Air 04/04/17 19:16 98 18 109/67 98 04/04/17 18:59 98 18 109/67 98 Room Air 04/04/17 18:06 Room Air 04/04/17 17:10 93 20 104/57 98 Room Air 04/04/17 15:51 90 18 116/63 96 Room Air 04/04/17 13:38 100 18 109/73 100 Room Air 04/04/17 12:18 36.7 116 18 102/66 97 Room Air Physical Exam General Appearance: WD/WN, no apparent distress Eyes: bilateral eyes normal inspection, bilateral eyes PERRL, bilateral eyes EOMI ENT: normal ENT inspection, hearing grossly normal, pharynx normal Neck: supple, no adenopathy Respiratory/Chest: lungs clear, normal breath sounds, no respiratory distress, no accessory muscle use Cardiovascular: no gallop, no murmur, + tachycardia Abdomen: normal bowel sounds, non tender, soft Extremities: non-tender, normal inspection, no pedal edema, no calf tenderness Neurologic/Psychiatric: no motor/sensory deficits, alert, oriented x 3 Skin: normal color, warm/dry, no rash Lymphatic: no adenopathy Laboratory Results Last 24 Hours Test 04/04/17 12:55 04/04/17 13:18 04/05/17 06:39 White Blood Count 1.67 K/uL 1.74 K/uL Red Blood Count 2.83 M/uL 3.07 M/uL Hemoglobin 7.2 g/dL 8.1 g/dL Hematocrit 22.3 % 24.3 % Mean Corpuscular Volume 78.8 fL 79.2 fL Mean Corpuscular Hemoglobin 25.4 pg 26.4 pg Mean Corpuscular Hemoglobin Concent 32.3 g/dl 33.3 g/dl Platelet Count 84 K/uL 48 K/uL Mean Platelet Volume 9.0 fL 9.2 fL Neutrophils (%) (Auto) 34.7 % Lymphocytes (%) (Auto) 62.9 % Monocytes (%) (Auto) 0.6 % Eosinophils (%) (Auto) 0.6 % Basophils (%) (Auto) 0.6 % Neutrophils # (Auto) 0.58 K/uL Lymphocytes # (Auto) 1.05 K/uL Monocytes # (Auto) 0.01 K/uL Eosinophils # (Auto) 0.01 K/uL Basophils # (Auto) 0.01 K/uL RDW Standard Deviation 47.0 fL 43.4 fL RDW Coefficient of Variation 16.7 % 15.5 % Immature Granulocyte % (Auto) 0.6 % Immature Granulocyte # (Auto) 0.01 K/uL Platelet Estimate DECREASED Tear Drop Cells 1+ Prothrombin Time 11.0 SECONDS Prothromb Time International Ratio 1.0 Activated Partial Thromboplast Time 28.5 SECONDS Partial Thromboplastin Ratio 1.1 Sodium Level 136 mmol/L Potassium Level 3.4 mmol/L Chloride Level 103 mmol/L Carbon Dioxide Level 25 mmol/L Anion Gap 8.0 mmol/L Blood Urea Nitrogen 17 mg/dl Creatinine 0.79 mg/dl Est Creatinine Clear Calc Drug Dose 87.5 ml/min Estimated GFR () 95.6 Estimated GFR (Non- 82.5 BUN/Creatinine Ratio 20.9 Random Glucose 123 mg/dl Calcium Level 8.6 mg/dl Phosphorus Level 2.8 mg/dl Magnesium Level 1.7 mg/dl Troponin I < 0.015 ng/ml Hepatitis C Antibody Screen NEG Venous Blood pH 7.43 Venous Blood Partial Pressure CO2 40 mmHg Venous Blood Partial Pressure O2 21 mmHg Venous Blood HCO3 26 mmol/L Venous Blood Oxygen Saturation < 60.0 % Venous Blood Base Excess 1.2 mEq/L Lactic Acid Level 1.7 mmol/L Assessment and Plan Assessment and Plan: This is a 56yo female with a history of adenocarcinoma of the lung s/p left upper-lobe lobectomy and who is currently undergoing adjuvant chemotherapy ( gemcitabine) who presents with generalized fatigue and dyspnea on exertion for the past 7 days. She received 2 units type O- leukoreduced blood with symptomatic improvement of her shortness of breath and improvement in her Hb to 8.1. Patient is on neutropenic precautions. 1. Anemia, resolving after 2units pRBCs Hb 8.1 increased from 7.2 yesterday -received 2 units type O- leukoreduced blood 2. MIKE adenocarcinoma s/p left upper lobectomy on chemotherapy (gemcitabine) -follows with Dr. Knight -zofran 8mg PO q8h prn nausea -compazine 10mg PO q6h prn nausea -hydrocodone 10/325mg PO q4h prn pain 3. Hypokalemia -received KCl 20meq IV overnight 4. Hypomagnesemia, Mg level 1.7 this AM -received magnesium hydroxide 800mg PO in ED 5. Constipation -continue home senna prn -continue home colace prn 6. Depression -continue home effexor 75mg PO daily 7. GERD -continue home ranitidine 150mg PO daily 8. Diet -regular diet 9. DVT prophylaxis -lovenox 40mg sc daily -SCD -patient may ambulate as tolerated Discharge planning: home Reviewed: Pt Seen/Exam by Me History See my note for details. Assessment/Plan Per H&P: 56yo female with h/o left lung adenocarcinoma s/p MIKE lobectomy, currently on cycle #4 of chemotherapy, who presents with fatigue, dyspnea on exertion, and sob. She had routine blood work earlier today by her oncologist demonstrating a hemoglobin of 7.4. She also reports headache and dizziness. No palpitations. No chest pain. No blood per rectum, melena, or hematuria. Denies abdominal pain. Because of the low hemoglobin she received a call from her oncologist, Dr. Knight, who recommended she come to the ER for evaluation and probable PRBCs. 56yo female with h/o left lung adenocarcinoma s/p MIKE lobectomy, currently on cycle #4 of chemotherapy, presenting with symptomatic anemia. 1. symptomatic neutropenic anemia in the setting of chemotherapy-induced pancytopenia Afebrile Sx resolved s/p 2 units PRBCs, irradiated due to neutropenia. Hb this AM is 8.1, but asx CBC on 04/07 pancytopenia - due to recent chemotherapy hypokalemia - due to poor oral intake; replace Improved, monitor Hypomagnesemia - replaced and stable PO Mg for d/c and monitor Adenocarcinoma of left lung - followed by Dr. Knight. neutropenia - 2nd to chemotherapy - no fever or infectious symptoms Mood d/o - continue outpatient meds
[2017-04-05 07:39] LABS: BUN/CREATININE RATIO 17.7 (10-20); CALCIUM 8.1 mg/dl (8.5-10.1); CREATININE 0.57 mg/dl (0.60-1.20); MAGNESIUM 1.7 mg/dl (1.8-2.4); POTASSIUM 3.9 mmol/L (3.5-5.1)
[2017-04-05 07:54] LABS: COMPLETE YES; EOS % 1.1 %; IG% 1.1 %; LYMPH % 53.4 %; LYMPH ABS # 0.93 K/uL (1.2-3.4); MONO % 2.9 %; NEUT % 41.5 %
[2017-04-05] MEDS: RANITIDINE HCL 150 MG TAB PO SCH (08:12)
[2017-04-05] MEDS: POTASSIUM CHLORIDE 20 MEQ TABCR PO SCH (08:12)
[2017-04-05] MEDS ORDERED: VENLAFAXINE HCL XR 75 MG CAPXR PO SCH (09:00)
[2017-04-05] MEDS ORDERED: MGNO400 PO (09:29)
--- NOTE | 2017-04-05 09:32 | Discharge Instructions ---
Discharge Instructions Date of Service Apr 05, 2017. Admission Reason for Admission: Symptomatic Anemia Discharge Discharge Diagnosis / Problem: Symptomatic anemia Discharge Goals Goal(s): Decrease discomfort, Improve function, Increase independence Activity Recommendations Activity Limitations: resume your previous activity . Instructions / Follow-Up Instructions / Follow-Up You are neutropenic, meaning that your immune system is a bit low, which is due to your chemotherapy. You should exercise good hand washing and avoid touching your face, as well as using good judgement around those who may have significant exposure to people who are ill or who are ill themselves. CBC on 04/07 Dr. Knight as per his instructions Current Hospital Diet Patient's current hospital diet: Regular Diet Discharge Diet Recommended Diet: Regular Diet Pending Studies Studies pending at discharge: no Medical Emergencies . Who to Call and When: Medical Emergencies: If at any time you feel your situation is an emergency, please call 911 immediately. . Non-Emergent Contact Non-Emergency issues call your: Oncologist . . "Provider Documentation" section prepared by Mariella Segura. . VTE Core Measure Inpt VTE Proph given/why not?: Contraindicated
--- NOTE | 2017-04-05 09:34 | Discharge Summary ---
Discharge Summary Date of Service Apr 05, 2017. Discharge Summary Admission Date: Apr 04, 2017 at 17:48 Discharge Date: Apr 05, 2017 Discharge Disposition: Home Principal Diagnosis: Symptomatic anemia Problems/Secondary Diagnoses: Lung cancer with current chemo s/p L partial lobectomy 12/2016 HypoMg GERD Depression Medication Reconciliation New Medications: Magnesium Oxide (Magnesium-Oxide) 400 Mg Tab 1 TAB PO BID for 30 Days Continued Medications: Aspirin (Aspirin Ec) 81 Mg Tab 81 MG PO QAM Hydrocodone/Acetaminophen 10MG/325MG ([place] 10MG/325MG) Tab 1-2 TABS PO Q4H PRN for Pain, TAB PRN PAIN Ondansetron Hcl (Zofran) 8 Mg Tab 8 MG PO Q8 PRN for Nausea Prochlorperazine Maleate (Compazine) 10 Mg Tab 10 MG PO Q6H PRN for Nausea Ranitidine Hcl (Zantac) 150 Mg Tab 150 MG PO BID Venlafaxine Hcl (Effexor Xr) 75 Mg Cap 1 CAP PO QAM for 30 Days, #30 CAP Discharge Exam Pt is doing quite well today. She has no SOB at rest or with exertion. She has walked the halls several times today without issue. No further headache or lightheadedness. Tolerated PO without issue. Denies any bleeding or bruising. Pt denies fever, chest pain, abd pain, n/v/c/d, LE pain or swelling. Physical Exam: General Appearance: WD/WN, no apparent distress Eyes: normal inspection, EOMI Respiratory/Chest: normal breath sounds, no respiratory distress Cardiovascular: regular rate, rhythm, no edema Abdomen / GI: non tender, soft Extremities: no calf tenderness, no pedal edema Neurologic/Psychiatric: alert, normal mood/affect, oriented x 3 Skin: normal color, warm/dry Hospital Course Per H&P: 56yo female with h/o left lung adenocarcinoma s/p MIKE lobectomy, currently on cycle #4 of chemotherapy, who presents with fatigue, dyspnea on exertion, and sob. She had routine blood work earlier today by her oncologist demonstrating a hemoglobin of 7.4. She also reports headache and dizziness. No palpitations. No chest pain. No blood per rectum, melena, or hematuria. Denies abdominal pain. Because of the low hemoglobin she received a call from her oncologist, Dr. Knight, who recommended she come to the ER for evaluation and probable PRBCs. 56yo female with h/o left lung adenocarcinoma s/p MIKE lobectomy, currently on cycle #4 of chemotherapy, presenting with symptomatic anemia. 1. symptomatic neutropenic anemia in the setting of chemotherapy-induced pancytopenia Afebrile Sx resolved s/p 2 units PRBCs, irradiated due to neutropenia. Hb this AM is 8.1, but asx CBC on 04/07 pancytopenia - due to recent chemotherapy hypokalemia - due to poor oral intake; replace Improved, monitor Hypomagnesemia - replaced and stable PO Mg for d/c and monitor Adenocarcinoma of left lung - followed by Dr. Knight. neutropenia - 2nd to chemotherapy - no fever or infectious symptoms Mood d/o - continue outpatient meds Total Time Spent: Greater than 30 minutes This includes examination of the patient, discharge planning, medication reconciliation, and communication with other providers. Discharge Instructions Please refer to the electronic Patient Visit Report (Discharge Instructions) for additional information. Additional Copies To Bright Ozuna M.D.; Irving Knight D.O.
[2017-04-05 10:06] VITALS: BP 96/62; PULSE 88; TEMP 37.2; O2SAT 96
[2017-05-02] MEDS ORDERED: MULT-506 PO (09:18)
[2017-05-02] MEDS ORDERED: magnesium PO (09:18)
== END 2017-04-05 10:35 | disposition home or self-care (01) ==
LOC: C.EDB 12:13 → C.2T 17:48 → ENRESERV 17:54 → EDBEDREQ 18:55
PROVIDERS: ADMIT Internal Medicine; ATTEND Internal Medicine
DX: D63.0 Anemia in neoplastic disease (principal); D61.810 Antineoplastic chemotherapy induced pancytopenia; D70.1 Agranulocytosis secondary to cancer chemotherapy; C34.92 Malignant neoplasm of unspecified part of left bronchus or lung; E83.42 Hypomagnesemia; E87.6 Hypokalemia; K21.9 Gastro-esophageal reflux disease without esophagitis; F32.9 Major depressive disorder, single episode, unspecified; Z79.82 Long term (current) use of aspirin; Z90.2 Acquired absence of lung [part of]; Z87.891 Personal history of nicotine dependence; Z80.3 Family history of malignant neoplasm of breast

== ENCOUNTER → 2017-05-15 | Outpatient (CLI) | payer BC ==
[~2017-05-15] MED LIST changes: +MGNO400 PO; +MULT-506 PO; +ONDA8TAB6 PO; +OPTIRAY 320 IV PRN; +PROC1TAB5 PO; +magnesium PO
--- NOTE | 2017-05-15 08:27 | DIAGNOSTIC IMAGING REPORT ---
(CHEST) THORAX WITH CLINICAL HISTORY: 56 years-old Female presenting with lung cancer follow-up. TECHNIQUE: Multidetector CT imaging of the chest was performed after the administration of intravenous contrast. IV contrast: 92 mL of Optiray 320. A dose lowering technique was used consistent with the principles of ALARA (as low as reasonably achievable). COMPARISON: 12/19/2016. CT DOSE (mGy.cm): The estimated cumulative dose is 950.28 mGy.cm. FINDINGS: [employer] topogram: Unremarkable. On soft tissue windows, normal thyroid and thoracic inlet. Few subcentimeter mediastinal lymph nodes, similar appearance to prior exam, the largest measuring 6 mm in the short axis. Minimal atherosclerosis of the aortic arch. Normal heart size. Interval development of loculated left apical pleural effusion with associated pleural thickening and enhancement, likely postsurgical. No pericardial effusion. Nonspecific thickening of the medial limb of the left adrenal gland is unchanged from prior. On lung windows, postsurgical changes of left upper lobectomy status post resection of the spiculated left apical nodule. Apical predominant emphysematous changes noted in the right lung. Minimal bandlike opacity in the left lower lobe likely atelectasis or scarring. Pulmonary cyst or limited emphysema noted in the left lower lobe. No new focal infiltrate or nodule. Postsurgical changes of the left upper lobe bronchus. Otherwise airways patent. On bone windows, degenerative changes of the thoracic spine. IMPRESSION: 1. Postsurgical changes of left upper lobectomy for the left upper lobe lung cancer. Loculated left apical pleural fluid and pleural thickening, likely expected postsurgical findings. No pathologically enlarged lymph nodes or evidence of metastatic disease in the thorax. 2. Emphysema. 3. Nonspecific thickening of the left adrenal gland, unchanged from prior. Electronically signed by: Keegan Corcoran M.D. 05/15/2017 8:26 AM Dictated Date/Time: 05/15/2017 8:17 AM
--- NOTE | 2017-05-15 08:28 | DIAGNOSTIC IMAGING REPORT ---
ABDOMEN AND PELVIS CT WITH IV AND ORAL CONTRAST CT DOSE: HISTORY: Lung cancer. TECHNIQUE: Multiaxial CT images of the abdomen and pelvis were performed following the use of intravenous and oral contrast. A dose lowering technique was utilized adhering to the principles of ALARA. COMPARISON STUDY: PET CT 12/12/2016. FINDINGS: No pneumoperitoneum. No pneumatosis. Mild right and moderate left hip osteoarthritis. The liver, spleen, right adrenal gland, and pancreas are unremarkable. Stable mild left adrenal gland thickening. Normal right kidney. A 1.7 cm cyst within the lower pole of the left kidney. Normal gallbladder. The bladder, uterus, bilateral adnexa are unremarkable. No retroperitoneal lymphadenopathy. No bowel wall thickening or obstruction. Normal appendix. IMPRESSION: 1. No evidence for metastatic disease within the abdomen or pelvis. 2. Stable mild left adrenal gland thickening. Electronically signed by: Christoph Harden M.D. 05/15/2017 8:26 AM Dictated Date/Time: 05/15/2017 8:17 AM
== END | disposition home or self-care (01) ==
LOC: C.CTS 07:53
PROVIDERS: ATTEND Internal Medicine Hematology & Oncology
DX: C34.12 Malignant neoplasm of upper lobe, left bronchus or lung (principal)

== ENCOUNTER 2017-09-26 05:20 | Inpatient (IN) | payer BC ==
[2017-09-04 11:20] VITALS: BMI 29.0
[2017-09-04 11:28] VITALS: BMI 29.0
--- NOTE | 2017-09-04 12:07 | PAT Medication Instructions ---
Service Date Sep 04, 2017. Current Home Medication List Aspirin (Aspirin Ec), 81 MG PO QAM Cholecalciferol (Vitamin D), 1 TAB PO QAM Hydrocodone/Acetaminophen 10MG/325MG ([place] 10MG/325MG), 1-2 TABS PO Q4H PRN for Pain Naproxen Sodium (Aleve), 1-2 TAB PO BID PRN for Pain Ranitidine Hcl (Zantac), 150 MG PO BID Venlafaxine Hcl (Effexor Xr), 1 CAP PO QAM Medication Instructions For Your Scheduled Surgery - Check with surgeon for instructions: Naproxen Sodium (Aleve), 1-2 TAB PO BID PRN for Pain - Hold the following medications the morning of surgery: Cholecalciferol (Vitamin D), 1 TAB PO QAM Ranitidine Hcl (Zantac), 150 MG PO BID - Take the following medications the morning of surgery with a sip of water: Venlafaxine Hcl (Effexor Xr), 1 CAP PO QAM Hydrocodone/Acetaminophen 10MG/325MG ([place] 10MG/325MG), 1-2 TABS PO Q4H PRN for Pain (Okay to take up to 4 hours prior to surgery if needed) Aspirin (Aspirin Ec), 81 MG PO QAM - Take the following medications as scheduled the night before surgery: Ranitidine Hcl (Zantac), 150 MG PO BID Hydrocodone/Acetaminophen 10MG/325MG ([place] 10MG/325MG), 1-2 TABS PO Q4H PRN for Pain (if needed) If you have any questions please call us at [phone] or [phone] or [phone]
--- NOTE | 2017-09-04 12:31 | DIAGNOSTIC IMAGING REPORT ---
ADDENDUM Additional images are submitted. Initial interpretation is unchanged Electronically signed by: Avila Brar M.D. 09/08/2017 6:24 AM Dictated Date/Time: 09/08/2017 6:23 AM ORIGINAL REPORT CHEST 2 VIEWS ROUTINE CLINICAL HISTORY: pat preoperative evaluation COMPARISON STUDY: 04/04/2017 FINDINGS: Stable postoperative changes left hemithorax from prior left upper lobectomy. Stable chronic pleural thickening left apex. Lungs are clear. Diaphragms smooth. No acute infiltrate. IMPRESSION: Chronic and postoperative change. No acute process. The above report was generated using voice recognition software. It may contain grammatical, syntax or spelling errors. Electronically signed by: Avila Brar M.D. 09/04/2017 12:29 PM Dictated Date/Time: 09/04/2017 12:28 PM
[2017-09-04 13:05] LABS: PTT PATIENT 29.3 SECONDS (21.0-31.0)
[2017-09-04 13:19] LABS: HEMOGLOBIN A1C 5.9 % (4.5-5.6)
--- NOTE | 2017-09-05 09:53 | HISTORY & PHYSICAL EXAMINATION ---
DATE OF ADMISSION: 09/26/2017 CHIEF COMPLAINT: Left hip pain. HISTORY OF PRESENT ILLNESS: Galina is a 57-year-old female with an 8-10 year history of left hip pain. She rates her pain at 10/10. She has pain with her daily activities. She has limited standing and walking tolerance. Pain is worse with weightbearing. The patient has been taking NSAIDs and injection. She has also been taking hydrocodone 10/325 daily for the last several years. The patient has failed conservative treatment and is now scheduled for left hip replacement. PAST MEDICAL HISTORY: Hypercholesterolemia, emphysema, anxiety. She denies heart disease, diabetes or DVT. PAST SURGICAL HISTORY: Tubal ligation, tonsillectomy and pulmonary lobectomy. SOCIAL HISTORY: The patient drinks 6 drinks per week. She quit smoking in December of 2016. 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 FAMILY HISTORY: Negative for DVT. MEDICATIONS: Hydrocodone 10/325 one tablet q. 8 hours, Zantac 75 mg b.i.d., Effexor 75 mg. ALLERGIES: None. REVIEW OF SYSTEMS: See HPI. Ten other systems reviewed, all negative. PHYSICAL EXAMINATION: VITAL SIGNS: Height 5 foot 8 inches, weight 192 pounds, BMI is 29. GENERAL: This is a well-developed, well-nourished female who is alert and oriented x3. Mood and affect are appropriate. HEENT: Normocephalic, atraumatic. Mucous membranes are moist and intact. NECK: Supple without lymphadenopathy. HEART: Regular rate and rhythm without murmurs, rubs or gallops. LUNGS: Clear to auscultation without wheezes or rhonchi. ABDOMEN: Soft and nontender. Bowel sounds are equal and active. EXTREMITIES: No ecchymosis, redness or warmth. She walks with an antalgic gait. She has no distal edema. Range of motion reproduces groin pain in the groin and it is decreased. She is neurovascularly intact with +5/5 strength. X-RAY EXAMINATION: AP and lateral views show joint space narrowing and osteophyte formation of the left hip. PLAN: The patient will be admitted for a left total hip arthroplasty. We will plan on aspirin for DVT prophylaxis. The patient is going to have [facility] for home physical therapy. She is going to be in the anterior hip and her PCP is Dr. Ozuna in [place].
[2017-09-26] VITALS (9 sets, daily range): BP systolic 82–119; BP diastolic 49–73; PULSE 85–109; TEMP 36.5–36.9; O2SAT 95–100; Ht 172.7 cm; Wt 86.7 kg
[~2017-09-26] VITALS: Ht 172.7 cm; Wt 86.7 kg
[~2017-09-26 05:20] MED LIST changes: +CHOL200010 PO; -MGNO400 PO; -MULT-506 PO; +NAPR1CAP12 PO; -ONDA8TAB6 PO; -OPTIRAY 320 IV PRN; -PROC1TAB5 PO; -magnesium PO
[2017-09-26] MEDS ORDERED: FAMOTIDINE 20 MG TAB PO SCH (06:00)
[2017-09-26] MEDS ORDERED: LACTATED RINGER'S 1000ML IV SCH (06:00)
[2017-09-26] MEDS ORDERED: DEXAMETHASONE 4 MG TAB PO SCH (06:00)
[2017-09-26] MEDS ORDERED: GABAPENTIN 300 MG CAP PO SCH (06:00)
[2017-09-26] MEDS ORDERED: ROPIVACAINE 5MG/ML 30 ML 150 MG, BUPIVACAINE 0.5% MPF INJ 30 ML, EpINEphrine HCL INJ 0.... INFIL SCH ×8 (06:00)
[2017-09-26] MEDS ORDERED: METOCLOPRAMIDE HCL 10 MG TAB PO SCH (06:00)
[2017-09-26] MEDS ORDERED: ACETAMINOPHEN 500 MG TAB PO SCH (06:00)
[2017-09-26] MEDS ORDERED: LACTATED RINGER'S 1000ML 1,000 ML IV SCH (06:00)
[2017-09-26] MEDS ORDERED: LACTATED RINGER'S 1000ML 500 ML IV SCH (06:00)
[2017-09-26] MEDS ORDERED: CEFAZOLIN 2000MG IV PUSH 15 ML IV SCH (06:00)
[2017-09-26] MEDS ORDERED: CeleBREX 200 MG CAP PO SCH (06:00)
[2017-09-26] MEDS ORDERED: FENTANYL CITRATE INJ 50 MCG/1 ML 2 ML VIAL ONE (06:18)
[2017-09-26] MEDS ORDERED: MIDAZOLAM HCL 1 MG/ML 2ML VIAL ONE (06:18)
[2017-09-26] MEDS ORDERED: PROPOFOL IV EMULSION 10 MG/ML 20 ML VIAL IV ONE ×4 (06:24→09:28)
[2017-09-26] MEDS ORDERED: EpHEDrine SULFATE INJ 50 MG/ML AMP ONE (06:25)
[2017-09-26] MEDS ORDERED: PHENYLEPHRINE HCL INJ 10 MG/ML VIAL ONE (06:25)
[2017-09-26] MEDS ORDERED: BUPIVACAINE 0.5 % 5 MG/1 ML PF 10ML VIAL ONE (06:28)
[2017-09-26] MEDS ORDERED: ORTHO JOINT ANESTHETIC ONE (06:51)
[2017-09-26] MEDS ORDERED: BACITRACIN 50000 UNIT VIAL ONE (06:51)
[2017-09-26] MEDS ORDERED: POVIDONE-IODINE OP SOLN 30 ML BTL ONE (06:52)
[2017-09-26] MEDS: TRANEXAMIC ACID INJ 1,000 MG in SYRINGE 0 ML IV SCH ×2 (06:55→12:02)
[2017-09-26] MEDS ORDERED: ATROPINE SULFATE 0.1 MG/ML 5ML SYR IV PRN (07:00)
[2017-09-26] MEDS ORDERED: PROMETHAZINE HCL INJ 12.5 MG in SODIUM CHLORIDE 0.9% 50ML 50 ML IV PRN (07:00)
[2017-09-26] MEDS ORDERED: HYDROmorphone INJ 1 MG/ML SYR IV PRN (07:00)
[2017-09-26] MEDS ORDERED: PHENYLEPHRINE 100MCG/ML 5ML SYR IV PRN (07:00)
[2017-09-26] MEDS ORDERED: EpHEDrine SULFATE INJ 50 MG/ML AMP IV PRN (07:00)
[2017-09-26] MEDS ORDERED: FENTANYL CITRATE INJ 50 MCG/1 ML 2 ML VIAL IV PRN (07:00)
[2017-09-26] MEDS ORDERED: ONDANSETRON INJ 2 MG/ML 2 ML VIAL IV PRN ×2 (07:00→10:30)
--- NOTE | 2017-09-26 10:13 | [facility] Post Operative Brief Note ---
Immediate Operative Summary Operative Date Sep 26, 2017. Pre-Operative Diagnosis Degenerative Joint Disease, Left Hip Post-Operative Diagnosis Degenerative Joint Disease, Left Hip Procedure(s) Performed Left Anterior Total Hip Arthroplasty Surgeon Dr. Jean Claude Gandhi Network Architect Surgeon(s) Renetta Pat PA-C Estimated Blood Loss 250ML Findings Consistent with Post-Op Diagnosis Fluids (cc crystalloids) 1600 Specimens Permanent Specimen: A.) Left Femoral Head Drains None Anesthesia Type MAC Spinal Regional Complication(s) none Disposition Disposition: Recovery Room / PACU
[2017-09-26] MEDS ORDERED: MoRPHine SULFATE 4 MG/ML 1 ML CARP\\VIAL IV PRN (10:30)
[2017-09-26] MEDS ORDERED: CEFAZOLIN IV 2,000 MG in DEXTROSE 5% 50ML 50 ML IV SCH (10:30)
--- NOTE | 2017-09-26 10:47 | [facility] Operative Report ---
Operative Report Operative Date Sep 26, 2017. Pre-Operative Diagnosis Degenerative Joint Disease, Left Hip Post-Operative Diagnosis Degenerative Joint Disease, Left Hip Procedure(s) Performed Left Anterior Total Hip Arthroplasty Surgeon Dr. Jean Claude Gandhi Medical Records Coder Surgeon(s) Renetta Pat PA-C Estimated Blood Loss 250ML Findings see dictated op note Fluids 1600 Specimens Permanent Specimen: A.) Left Femoral Head Drains None Anesthesia Type MAC Spinal Regional Complication(s) none Disposition Recovery Room / PACU Indications The patient is a 57-year-old female who presents with severe progressive left hip DJD who has failed outpatient conservative treatments. I indicated the patient for a total hip replacement and the risks and benefits were explained in detail which included but not limited to infection, bleeding, blood clot, damage to surrounding bone, nerves, vessels, soft tissue, hip dislocation, failure of the prosthesis, leg length discrepancy, need for additional surgery and . The patient agreed to proceed with replacement of the hip and informed consent was obtained. Description of Procedure COMPONENTS USED: [employer] hip system: Acetabulum size 52, femur size 6 high offset, femoral head 36 -3, liner 36x52, acetabular screw 25. DESCRIPTION OF PROCEDURE: Following satisfactory spinal, the patient was supine. The right leg was placed in the well leg yanez and the left leg in the traction device. Left leg was prepared with ChloraPrep and draped sterilely. Following a surgical time-out, an anterior approach in the interval between the sartorius and tensor muscles was completed. Circumflex femoral vessels were identified and ligated and anterior capsulotomy was performed revealing the arthritic femoral neck and head. A femoral neck cut was made with reciprocating saw and the bone fragments removed. The acetabular self-retraining retractor was placed. Acetabular reaming was completed under fluoroscopic guidance, a 52 shell was impacted into an anatomic position and secured with a dome screw. Local anesthetic was placed and following irrigation, the polyethylene liner was placed. The femur was placed into position of external rotation, extension and adduction. Femoral canal was prepared up to the size 6 high offset. Trial reduction with a -3 neck length head showed good soft tissue tension, leg lengths restored, and good fit and fill of the proximal canal using fluoroscopic landmarks. The hip was dislocated. The trial component was removed. The final implant was placed. The hip was irrigated and reduced. A Betadine soak was performed. After 3 minutes, the Betadine was irrigated. More local anesthetic was injected in the surround soft tissues. The capsule was then closed with 1-0 Vicryl interrupted. The fascia was closed with a running suture of #1 Vicryl, the subcutaneous tissues with 1 and 2-0 Vicryl and the skin with a running subcuticular stitch of 3-0 V-Loc. Dermabond and a dry dressing were applied. The patient tolerated the procedure well and was transported to PACU in stable condition. Due to the complex nature of the procedure, the entire surgery was performed with the operational assistance of Chula Pat PA-C. The information services assistant, under direct supervision, was involved in the actual performance of all aspects of the surgical procedure including hemostasis, tissue retraction and incision, instrument management, patient positioning, and wound closure. I attest to the content of the Intraoperative Record and any orders documented therein. Any exceptions are noted below. I attest to the content of the Intraoperative Record and any orders documented therein. Any exceptions are noted below.
--- NOTE | 2017-09-26 11:00 | DIAGNOSTIC IMAGING REPORT ---
L HIP UNILATERAL 1 VIEW CLINICAL HISTORY: LEFT ANTERIOR HIP hip arthroplasty COMPARISON: None. DISCUSSION: Evidence for a total left hip arthroplasty. Good contact between prosthetic and underlying bone. Expected soft tissue postoperative change. IMPRESSION: Anatomic alignment status post total left hip arthroplasty. The above report was generated using voice recognition software. It may contain grammatical, syntax or spelling errors. Electronically signed by: Avila Brar M.D. 09/26/2017 10:58 AM Dictated Date/Time: 09/26/2017 10:56 AM
--- NOTE | 2017-09-26 11:04 | Anesthesiology Progress Note ---
Anesthesia Post Op Note Date & Time Sep 26, 2017 at 11:04 Vital Signs Pain Intensity: 0 Vital Signs Past 12 Hours Date Time Temp Pulse Resp B/P (MAP) Pulse Ox O2 Delivery O2 Flow Rate FiO2 09/26/17 11:00 36.4 92 16 90/59 99 Oxymask 3 09/26/17 10:50 90 16 90/63 99 Oxymask 3 09/26/17 10:43 36.1 88 18 127/82 99 Oxymask 5 09/26/17 05:59 36.7 85 16 106/70 98 Room Air Notes Mental Status: alert / awake / arousable, participated in evaluation Pt Amnestic to Procedure: Yes Nausea / Vomiting: adequately controlled Pain: adequately controlled Airway Patency, RR, SpO2: stable & adequate BP & HR: stable & adequate Hydration State: stable & adequate Neuraxial Anesthesia: was administered, sensory block is resolving Anesthetic Complications: no major complications apparent Awake, doing well, VSS. Pain controlled.
--- NOTE | 2017-09-26 11:06 | DIAGNOSTIC IMAGING REPORT ---
L PELVIS/UNILATERAL HIP 1 VIEW CLINICAL HISTORY: 57 years-old Female presenting with IN PACU - A/P PELVIS and LATERAL HIP INCLUDING ALL OF IMPLANT. TECHNIQUE: Single frontal view of the pelvis and crosstable lateral view of the left hip were obtained. COMPARISON: Comparison made to CT of the abdomen and pelvis from 05/15/2017. FINDINGS: There has been interval total left hip arthroplasty. No periprosthetic fracture. No malalignment. No hardware complication. Lateral view limited by patient body habitus and portable technique. Bony pelvis intact. No advanced degenerative change of the right hip. Soft tissue emphysema related to recent postsurgical state. IMPRESSION: Expected postsurgical findings status post total left hip arthroplasty. Electronically signed by: Keegan Corcoran M.D. 09/26/2017 11:04 AM Dictated Date/Time: 09/26/2017 11:03 AM
[2017-09-26] MEDS: SODIUM CHLORIDE 0.9% 1000ML 1,000 ML IV SCH ×2 (12:02→21:45)
--- NOTE | 2017-09-26 12:22 | Orthopedic Progress Note ---
Orthopedic Progress Note Date of Service Sep 26, 2017. Subjective Additional Notes: Postoperative progress note Patient seen at bedside, comfortable, denies pain, still feeling effects of spinal anesthesia. No acute issues. Objective LLE NVSI +2 DP pulse, wiggles toes, motor still decreased secondary to spinal anesthesia, b/l LE, compartments soft, NT, dressing CDI Date Time Temp Pulse Resp B/P (MAP) Pulse Ox O2 Delivery O2 Flow Rate FiO2 09/26/17 11:46 36.7 103 21 100/66 (77) 98 Nasal Cannula 2.0 09/26/17 11:25 Nasal Cannula 09/26/17 11:25 Nasal Cannula 09/26/17 11:20 36.5 87 16 93/61 (72) 97 Nasal Cannula 2.0 09/26/17 11:00 36.4 92 16 90/59 99 Oxymask 3 09/26/17 10:50 90 16 90/63 99 Oxymask 3 09/26/17 10:43 36.1 88 18 127/82 99 Oxymask 5 09/26/17 05:59 36.7 85 16 106/70 98 Room Air Assessment & Plan Assessment: s/p L anterior LOIS Plan: -Ancef x 24 -DVT ppx - lovenox 40 mg daily x 2 weeks followed by 4 weeks of EC ASA -WBAT LLE -PT/OT with assistive device -Anterior hip precautions -Pain controlled -PO XR - well aligned, well fixed total hip prothesis, no fracture or dislocation -Am labs -DC planing - Home with
[2017-09-26] MEDS ORDERED: PNEUMOCOCCAL ADMINISTRATION CHARGE ONE (12:30)
[2017-09-26] MEDS ORDERED: PNEUMOCOCCAL POLYSACCHARIDES 25 MCG/0.5 ML VIAL/SYR IM. ONE (12:30)
[2017-09-26] MEDS: ACETAMINOPHEN 500 MG TAB PO SCH ×2 (13:49→21:44)
[2017-09-26] MEDS: CEFAZOLIN IV 2,000 MG in SYRINGE 0 ML IV SCH (15:47)
[2017-09-26] MEDS: OXYCODONE HCL IR 5 MG TAB (IMMEDIATE RELEASE) PO PRN ×2 (17:09→21:46)
[2017-09-26] MEDS: KETOROLAC TROMETHAMINE 30 MG/ML VIAL IV. SCH (18:05)
[2017-09-26] MEDS ORDERED: ASPIRIN 325 MG ECTAB PO SCH (21:00)
[2017-09-26] MEDS: RANITIDINE HCL 150 MG TAB PO SCH (21:44)
[2017-09-26] MEDS: SENNA 8.6 MG TAB PO SCH (21:45)
[2017-09-26] MEDS: MoRPHine SULFATE CR 15 MG TAB (MS CONTIN) PO SCH (21:45)
[2017-09-26] MEDS: DOCUSATE SODIUM 100 MG CAP PO SCH (21:45)
[2017-09-27] VITALS (11 sets, daily range): BP systolic 85–108; BP diastolic 46–66; PULSE 58–104; TEMP 36.6–36.8; O2SAT 95–98
[2017-09-27] MEDS: CEFAZOLIN IV 2,000 MG in SYRINGE 0 ML IV SCH (00:33)
[2017-09-27] MEDS: KETOROLAC TROMETHAMINE 30 MG/ML VIAL IV. SCH ×3 (00:33→11:26)
[2017-09-27] MEDS: ACETAMINOPHEN 500 MG TAB PO SCH ×3 (06:21→21:31)
[2017-09-27] MEDS: SODIUM CHLORIDE 0.9% 1000ML 1,000 ML IV SCH (07:39)
[2017-09-27 07:47] LABS: BASO % 0.1 %; BASO ABS # 0.01 K/uL (0-0.2); EOS % 0.1 %; EOS ABS # 0.01 K/uL (0-0.5); HEMATOCRIT 27.4 % (37-47); HEMOGLOBIN 8.9 g/dL (12.0-16.0); IG# 0.03 K/uL (0.00-0.02); LYMPH ABS # 1.69 K/uL (1.2-3.4); MEAN CELL VOLUME 85.4 fL (80-100); MEAN CORPUSCULAR HEMOGLOBIN 27.7 pg (25-34); MEAN CORPUSCULAR HGB CONC 32.5 g/dl (32-36); MEAN PLATELET VOLUME 8.6 fL (7.4-10.4); MONO % 8.8 %; MONO ABS # 1.07 K/uL (0.11-0.59); NEUT % 76.8 %; PLATELET COUNT 200 K/uL (130-400); RED CELL DISTRIBUTION WIDTH CV 13.7 % (11.5-14.5); RED CELL DISTRIBUTION WIDTH SD 42.7 fL (36.4-46.3); WHITE BLOOD COUNT 12.11 K/uL (4.8-10.8)
[2017-09-27] MEDS: DOCUSATE SODIUM 100 MG CAP PO SCH ×2 (08:19→21:28)
[2017-09-27] MEDS: ENOXAPARIN 40 MG/0.4 ML SYR SQ SCH (08:20)
[2017-09-27] MEDS: RANITIDINE HCL 150 MG TAB PO SCH ×2 (08:20→21:27)
[2017-09-27] MEDS: MULTIVITAMIN TAB PO SCH (08:20)
[2017-09-27] MEDS: MoRPHine SULFATE CR 15 MG TAB (MS CONTIN) PO SCH ×2 (08:22→21:28)
[2017-09-27] MEDS: OXYCODONE HCL IR 5 MG TAB (IMMEDIATE RELEASE) PO PRN ×3 (08:23→23:30)
[2017-09-27 08:25] LABS: CALCIUM 7.7 mg/dl (8.5-10.1); CREATININE 0.75 mg/dl (0.60-1.20); POTASSIUM 4.4 mmol/L (3.5-5.1)
[2017-09-27] MEDS ORDERED: CLB200 PO (08:43)
[2017-09-27] MEDS ORDERED: ASPI81TA28 PO (08:43)
[2017-09-27] MEDS ORDERED: RXC5 PO (08:43)
[2017-09-27] MEDS ORDERED: ONDA8TAB6 PO (08:43)
[2017-09-27] MEDS ORDERED: SENN-61 PO (08:43)
[2017-09-27] MEDS ORDERED: LVNIS40 SQ (08:43)
--- NOTE | 2017-09-27 08:50 | Discharge Instructions ---
Discharge Instructions Date of Service Sep 27, 2017. Admission Reason for Admission: Left Hip Osteoarthritis Discharge Discharge Diagnosis / Problem: SP LEFT LOIS, DIRECT ANTERIOR Discharge Goals Goal(s): Decrease discomfort, Improve function, Increase independence Activity Recommendations Activity Limitations: per Instructions/Follow-up section . Instructions / Follow-Up Instructions / Follow-Up ACTIVITY RECOMMENDATIONS: SELF CARE INSTRUCTIONS AFTER TOTAL HIP REPLACEMENT Until the incision and soft tissues around your hip have healed, there is a possibility that the hip prosthesis could dislocate. A. Observe the following precautions to prevent dislocation: 1. Don't bend your hip greater than 90 degrees. 2. Avoid crossing your legs or ankles while standing or lying. 3. Sit with your feet placed 6 inches apart. 4. When sitting, keep your knees below your hips. Sit on a firm surface, avoid deep, soft chairs and couches. Use an elevated toilet seat in the bathroom. 5. Don't bend over at the waist. Use a long handled shoehorn and a sock aid to help you put on your shoes and socks. A glue mixer can help you pick up man objects that are too high or too low to reach. 6. Keep car riding to a minimum for at least one month after surgery. B. Your balance may be shaky for a while. Use crutches or a walker until directed by your doctor. C. Use hand rails when walking on stairs. D. Wear low heeled shoes with non-slip soles. E. Be sure that your floors are free of things that could trip you - throw rugs , electrical cords, small objects. Avoid wet and waxed floors, especially with crutches and canes. F. Try to walk several times a day with rest periods between. G. Continue with all the exercises taught to you in the hospital. Again, make walking a part of your daily routine. SPECIAL CARE INSTRUCTIONS: VERY IMPORTANT TO READ AND REVIEW A. You may still be at risk for phlebitis and blood clots. 1. Wear surgical stockings (SUDHEER hose) for 2 weeks after surgery to improve circulation and reduce swelling. 2. Take Aspirin 325 mg twice daily for 4 weeks or as directed by your doctor. This is your blood thinner. 3. High risk patients may be prescribed a stronger blood thinner if necessary. TAKE LOVENOX INJECTIONS DAILY X 2 WEEKS. THEN START ASPIRIN 325MG BID X 4 MORE WEEKS. 4. If you are on Coumadin normally, your family doctor/carving machine operator should monitor your blood work. Expect a phone call the day of or the day after bloodwork is drawn to adjust your dosage. B. You must take antibiotics before having dental work, bladder, bowel and other surgery. Your doctor will provide you with a permanent card to carry describing precautions. C. Call [facility] if you have a fever, redness or swelling around the incision, cloudy drainage from incision, or sudden increase in pain in your hip, not relieved by your regular pain medication. D. Please call the office at if you have any concerns or questions about your operation or recovery. * YOU MAY SHOWER, NO TUB BATHS UNTIL CLEARED BY YOUR DOCTOR. * WEAR SUDHEER HOSE 20 HOURS PER DAY FOR 2 WEEKS. * YOU SHOULD USE A WALKER OR CRUTCHES FOR 2-4 WEEKS. THIS WILL HELP PREVENT STRAIN ON YOUR HIP MUSCLE AND ALLOW IT TO HEAL PROPERLY. YOU MAY WEAN TO A CANE TOLERATED. * MOST PATIENTS WILL HAVE HOME NURSING FOR THERAPY. IF YOU DECIDE TO DO OUTPATIENT PHYSICAL THERAPY, PLEASE SCHEDULE THIS 3 TIMES PER WEEK. DERMABOND Prineo- This is a mesh tape dressing that is covered with glue. It should remain in place until the incision is properly healed, usually 10-14 days. This dressing is designed to naturally slough off. You may trim the excess mesh tape as it peels off. Incision may be briefly wet in a shower. Dry immediately by blotting with a clean, dry towel. Do not bath or swim until instructed by your doctor. Do not scratch, rub, or pick at the dressing. Do not apply any topical ointments or lotions until dressing is completely removed and/or instructed by your doctor. There may be a small piece of suture material at one end of your incision. Do not pull or trim this. If it is bothersome or catching on clothing, you may cover it with a band-aid. FOLLOW UP VISIT: If appointment is not already scheduled: Please call [facility] to make a follow-up appointment for 2 weeks after your surgery at . Current Hospital Diet Patient's current hospital diet: Regular Diet Discharge Diet Recommended Diet: Regular Diet Procedures Procedures Performed: Left Anterior Total Hip Arthroplasty Pending Studies Studies pending at discharge: no Laboratory Results Hemoglobin A1c Test 09/04/17 12:12 Range/Units Estimated Average Glucose 123 mg/dl Hemoglobin A1c 5.9 H 4.5-5.6 % Medical Emergencies . Who to Call and When: Medical Emergencies: If at any time you feel your situation is an emergency, please call 911 immediately. . Non-Emergent Contact Non-Emergency issues call your: Surgeon . "Provider Documentation" section prepared by Renetta Mcgee . VTE Core Measure Inpt VTE Proph given/why not?: Enoxaparin (Lovenox)JONI, Susan Hicks, SCD's [place] Drug Monitoring Program Search Results: patient reviewed within database, no issues identified
--- NOTE | 2017-09-27 09:29 | Orthopedic Progress Note ---
Orthopedic Progress Note Date of Service Sep 27, 2017. Subjective Reports: feeling well, complaints, chest pain, pain controlled w PO medications , Denies: SOB, nausea / vomiting, light headedness, calf pain Additional Notes: Patient seen at bedside, comfortable, denies pain, no acute issues overnight. Objective LLE: NVSI +EHL/FHL/TA/GS SILT grossly, CR< 2 seconds, dressing cdi, compartments soft NT Date Time Temp Pulse Resp B/P (MAP) Pulse Ox O2 Delivery O2 Flow Rate FiO2 09/27/17 07:59 36.6 85 17 95 Room Air 09/27/17 07:25 36.6 85 17 93/57 (69) 95 Room Air 09/27/17 07:20 Room Air 09/27/17 05:00 92/56 (68) 09/27/17 03:07 89/52 (64) 09/27/17 03:00 36.8 87 16 85/46 (59) 96 Room Air 09/27/17 00:05 98 Room Air 09/26/17 23:04 36.8 93 14 90/51 (64) 95 Room Air 09/26/17 22:34 92/56 (68) 09/26/17 22:31 36.9 97 18 82/49 (60) 95 Room Air 09/26/17 14:20 36.7 108 16 111/60 (77) 97 Room Air 09/26/17 13:28 109 16 105/62 (76) 100 Nasal Cannula 2.0 09/26/17 12:21 99 17 119/73 (88) 99 Nasal Cannula 2.0 09/26/17 11:46 36.7 103 21 100/66 (77) 98 Nasal Cannula 2.0 09/26/17 11:25 Nasal Cannula 09/26/17 11:25 Nasal Cannula 09/26/17 11:20 36.5 87 16 93/61 (72) 97 Nasal Cannula 2.0 09/26/17 11:00 36.4 92 16 90/59 99 Oxymask 3 09/26/17 10:50 90 16 90/63 99 Oxymask 3 09/26/17 10:43 36.1 88 18 127/82 99 Oxymask 5 Laboratory Results 24 Hours: Test 09/27/17 07:30 White Blood Count 12.11 K/uL Red Blood Count 3.21 M/uL Hemoglobin 8.9 g/dL Hematocrit 27.4 % Mean Corpuscular Volume 85.4 fL Mean Corpuscular Hemoglobin 27.7 pg Mean Corpuscular Hemoglobin Concent 32.5 g/dl Platelet Count 200 K/uL Mean Platelet Volume 8.6 fL Neutrophils (%) (Auto) 76.8 % Lymphocytes (%) (Auto) 14.0 % Monocytes (%) (Auto) 8.8 % Eosinophils (%) (Auto) 0.1 % Basophils (%) (Auto) 0.1 % Neutrophils # (Auto) 9.30 K/uL Lymphocytes # (Auto) 1.69 K/uL Monocytes # (Auto) 1.07 K/uL Eosinophils # (Auto) 0.01 K/uL Basophils # (Auto) 0.01 K/uL Prothromb Time International Ratio 1.0 Prothrombin Time 10.9 SECONDS Assessment & Plan Assessment: s/p L anterior LOIS POD#1 Plan: -Ancef x 24 -DVT ppx - lovenox 40 mg daily x 2 weeks followed by 4 weeks of EC ASA -WBAT LLE -PT/OT with assistive device -Anterior hip precautions -Pain controlled -PO XR - well aligned, well fixed total hip prothesis, no fracture or dislocation -Am labs - Hgb 8.9 -DC planing - Home with HH today vs tomorrow
[2017-09-27] MEDS: SENNA 8.6 MG TAB PO SCH (21:27)
[2017-09-27] MEDS: CeleBREX 200 MG CAP PO SCH (21:28)
[2017-09-28] MEDS: ACETAMINOPHEN 500 MG TAB PO SCH (05:44)
[2017-09-28 07:11] VITALS: BP 100/63; PULSE 90; TEMP 36.9; O2SAT 98
--- NOTE | 2017-09-28 07:40 | Orthopedic Progress Note ---
Orthopedic Progress Note Date of Service Sep 28, 2017. Subjective Post OP Day: 2 Reports: feeling well, Denies: chest pain, SOB, nausea / vomiting, light headedness, calf pain Objective calves soft nontender, N/V intact, hip located, capillary refill less than 2 sec., dressing C/D/I, A&O x3, toes mobile Date Time Temp Pulse Resp B/P (MAP) Pulse Ox O2 Delivery O2 Flow Rate FiO2 09/28/17 07:11 36.9 90 18 100/63 (75) 98 Room Air 09/27/17 23:25 36.7 86 16 102/62 (75) 96 Room Air 09/27/17 23:20 95 Room Air 09/27/17 15:50 Room Air 09/27/17 15:09 36.7 90 18 95/60 (72) 95 Room Air 09/27/17 11:24 36.6 86 16 93/54 (67) 97 Room Air 09/27/17 10:25 104 95 09/27/17 07:59 36.6 85 17 95 Room Air Assessment & Plan Assessment: s/p L anterior LOIS POD#2 Plan: -Ancef x 24 -DVT ppx - lovenox 40 mg daily x 2 weeks followed by 4 weeks of EC ASA -WBAT LLE -PT/OT with assistive device -Anterior hip precautions -Pain controlled -PO XR - well aligned, well fixed total hip prothesis, no fracture or dislocation -Am labs - Hgb 8.9 -DC planing - DC HOME TODAY WITH ADVANTAGE
[2017-09-28] MEDS: RANITIDINE HCL 150 MG TAB PO SCH (08:51)
[2017-09-28] MEDS: CeleBREX 200 MG CAP PO SCH (08:51)
[2017-09-28] MEDS: MULTIVITAMIN TAB PO SCH (08:51)
[2017-09-28] MEDS: DOCUSATE SODIUM 100 MG CAP PO SCH (08:51)
[2017-09-28] MEDS: ENOXAPARIN 40 MG/0.4 ML SYR SQ SCH (08:52)
[2017-09-28] MEDS: MoRPHine SULFATE CR 15 MG TAB (MS CONTIN) PO SCH (08:54)
[2017-09-28] MEDS ORDERED: VENLAFAXINE HCL XR 75 MG CAPXR PO SCH (09:00)
== END 2017-09-28 11:03 | disposition home health service (06) | DRG 470 ==
LOC: C.ACU 05:20 → C.3E 07:00 → ENRESERV 10:51
PROVIDERS: ADMIT Orthopaedic Surgery; ATTEND Orthopaedic Surgery
PROC: 0SRB0JZ Replacement of Left Hip Joint with Synthetic Substitute, Open Approach (ICD-10-PCS; principal; 2017-09-26 07:15)
DX: M16.12 Unilateral primary osteoarthritis, left hip (principal); F41.9 Anxiety disorder, unspecified; Z79.899 Other long term (current) drug therapy; Z79.891 Long term (current) use of opiate analgesic; Z87.891 Personal history of nicotine dependence

== ENCOUNTER → 2017-12-21 | Outpatient (CLI) | payer BC ==
[~2017-12-21] MED LIST changes: +CLB200 PO; -HYDR-4079 PO; +LVNIS40 SQ; -NAPR1CAP12 PO; +ONDA-170 PO; +OPTIRAY 320 IV PRN; +RXC5 PO; +SENN-61 PO
--- NOTE | 2017-12-21 10:22 | DIAGNOSTIC IMAGING REPORT ---
ABD/PELVIS IV AND ORAL CONT CT DOSE: HISTORY: Lung carcinoma X TECHNIQUE: Multiaxial CT images of the abdomen and pelvis were performed following the use of intravenous and oral contrast. A dose lowering technique was utilized adhering to the principles of ALARA. COMPARISON STUDY: 05/15/2017 FINDINGS: Lung bases are clear. Liver spleen and pancreas are unremarkable. Stable lower pole left renal cyst. Stable hyperplastic change left adrenal. Bowel pattern is considered nonobstructive. No significant abdominal pelvic or inguinal adenopathy. Bladder is midline. Patient is post left hip arthroplasty. Bladder is midline with no contained calcifications. No significant pelvic sidewall adenopathy. IMPRESSION: No evidence for metastatic disease. No change from the prior study. The above report was generated using voice recognition software. It may contain grammatical, syntax or spelling errors. Electronically signed by: Avila Brar M.D. 12/21/2017 10:21 AM Dictated Date/Time: 12/21/2017 10:17 AM
--- NOTE | 2017-12-21 10:28 | DIAGNOSTIC IMAGING REPORT ---
CHEST CT WITH CONTRAST CT DOSE: 1339.59 mGy.cm HISTORY: Follow-up study in a patient with history of lung cancer. Subsequent treatment strategy. X TECHNIQUE: Multiaxial CT images of the chest were performed following the intravenous administration of contrast. A dose lowering technique was utilized adhering to the principles of ALARA. COMPARISON: CT abdomen and pelvis of same day, CT chest 05/15/2017 FINDINGS: No dominant thyroid nodule. No pathologically enlarged lymph nodes by CT size criteria. 7 mm subcarinal lymph node is likely physiologic, unchanged. Stable 5 mm right paratracheal lymph node is also noted. 7 mm right supraclavicular lymph node on image 47 series 6 previously measured 7 mm Heart is normal in size without pericardial effusion. Mild mixed plaquing of the thoracic aorta without aneurysm. Note is made of a bovine aortic arch. The imaged great vessels appear patent. Postoperative changes from prior left upper lobectomy. Small amount of loculated fluid at the left lung apex is again seen measuring up to 1.5 x 2.3 cm, previously measuring up to 2.8 x 4.5 cm. Moderate upper lobe predominant centrilobular emphysema. Mild dependent subsegmental bibasilar atelectasis. No pneumothorax. No suspicious pulmonary nodules or masses identified to suggest recurrent, residual or metastatic disease. Central airways appear patent. No acute process of the imaged upper abdomen. Hepatic steatosis. Mild thickening of the left adrenal gland are noted. Soft tissues and breast parenchyma are unremarkable. The bones appear intact. No suspicious lytic or blastic bony lesions are identified. Mild to moderate multilevel endplate spurring about the spine. IMPRESSION: 1. No acute intrathoracic abnormality identified. 2. Prior left upper lobectomy with decreased size of loculated pleural fluid at the left lung apex, likely postsurgical. 3. No pathologic adenopathy or evidence of residual or metastatic disease. 4. Emphysema. 5. Hepatic steatosis. Electronically signed by: Brandin Clarke M.D. 12/21/2017 10:27 AM Dictated Date/Time: 12/21/2017 10:19 AM
== END | disposition home or self-care (01) ==
LOC: C.CTS 09:39
PROVIDERS: ATTEND Internal Medicine Hematology & Oncology
DX: C34.12 Malignant neoplasm of upper lobe, left bronchus or lung (principal)

== ENCOUNTER 2021-10-14 12:56 | Inpatient (IN) ==
[2021-10-14] MEDS ORDERED: SODIUM CHLORIDE 0.9% 1000ML 1,000 ML IV ONE (13:27)
--- NOTE | 2021-10-14 13:51 | XRay Report ---
XR chest 1V portable HISTORY: Atypical Chest Pain COMPARISON: Chest 09/29/2021. FINDINGS: Stable volume loss, suture material, and left basilar linear densities within the left lung likely representing postoperative change. The heart is stable in size. The right lung is clear. No e vidence for pulmonary edema. No pleural effusions. No pneumothorax. Partially visualized postoperativ e changes within the mid shaft left humerus are again noted. IMPRESSION: No significant change compared to the prior study. No acute process. Stable postoperative changes wit hin the left hemithorax. ACT 112: Negative or not required by law. Electronically signed by: Christoph Harden M.D. 10/14/2021 1:50 PM
[2021-10-14 14:10] LABS: Hematocrit (blood only) 29.9 % (37-47); Hemoglobin 9.4 g/dL (12.0-16.0); Mean Corpuscular Hemoglobin 25.5 pg (25-34); Mean Corpuscular Hgb Conc 31.4 g/dL (32-36); Mean Corpuscular Volume 81.3 fL (80-100); Mean Platelet Volume 9.4 fL (7.4-10.4); Platelet Count 135 K/uL (130-400); RDW Standard Deviation 47.3 fL (36.4-46.3); Red Blood Count 3.68 M/uL (4.2-5.4); White Blood Count 1.09 K/uL (4.8-10.8)
[2021-10-14] MEDS ORDERED: CEFEPIME 2,000 MG/20 ML VIAL IV STA (14:24)
[2021-10-14] MEDS ORDERED: LACTATED RINGER'S 1,000 ML IV ONE (14:24)
[2021-10-14 14:27] LABS: INR 1.2 (0.9-1.1); Prothrombin Time 12.4 Seconds (9.0-12.0)
[2021-10-14 14:34] LABS: Troponin I 0.03 ng/ml (0-0.04)
[2021-10-14 14:35] LABS: Alanine Aminotransferase 98 U/L (7-52); Albumin Globulin Ratio 0.8 (0.9-2); Albumin Level 2.9 gm/dl (3.4-5.0); Alkaline Phosphatase 164 U/L (34-104); Anion Gap 10 (3-11); Aspartate Aminotransferase 74 U/L (13-39); Bilirubin,Total 0.8 mg/dl (0.2-1.0); Blood Urea Nitrogen 20 mg/dl (6-23); Calcium 7.2 mg/dl (8.5-10.1); Carbon Dioxide 19 mmol/L (21-32); Chloride 100 mmol/L (98-107); Est GFR (African American) 119.4 ml/min; Globulin 3.6 gm/dl (2.5-4.0); Glucose 118 mg/dl (70-99(Fasting)); Lipase 6 U/L (11-82); Magnesium 1.3 mg/dl (1.7-2.4); Phosphorus 1.7 mg/dl (2.5-4.9); Potassium 4.2 mmol/L (3.5-5.1); Sodium 129 mmol/L (136-145); Total Protein 6.5 gm/dl (6.0-8.3)
[2021-10-14 14:44] LABS: ANC (manual) 0.44 K/uL (1.4-6.5); Eosinophils # (manual) 0.05 K/uL (0-0.5); Neutrophils # (manual) 0.44 K/uL (1.4-6.5)
[2021-10-14] MEDS ORDERED: ONDANSETRON INJ 2 MG/ML 2 ML VIAL IV STA (14:52)
[2021-10-14] MEDS ORDERED: ACETAMINOPHEN 1,000 MG/100 ML VIAL IV STA (14:52)
[2021-10-14] MEDS ORDERED: FAMOTIDINE 20MG IV PUSH 20 MG/5 ML SYR IV STA (14:52)
[2021-10-14] MEDS ORDERED: POTASSIUM PHOS 3 MMOL/1 ML INFUSION IV STA (14:55)
[2021-10-14] MEDS ORDERED: POTASSIUM PHOSPHATE IV ONE (15:15)
[2021-10-14] MEDS ORDERED: DEXTROSE 5% IV ONE (15:15)
--- NOTE | 2021-10-14 15:22 | CT Scan Report ---
CT head/brain wo con CLINICAL HISTORY: 61 years-old Female with ams, metastatic ca. Acutely altered mental status TECHNIQUE: Multiple axial CT images of the head were obtained without contrast. A dose lowering tech nique was utilized adhering to the principles of ALARA. CT DOSE: 537.48 mGy.cm COMPARISON: Brain MRI 09/07/2021 FINDINGS: No acute intracranial hemorrhage, midline shift, intra-axial mass, hydrocephalus, territorial ischemi a or abnormal extra-axial collection. Calcified 8 mm meningioma along the left posterior aspect of th e cerebral hemisphere on image 17 series 2 is unchanged. Mild white matter hypodensities suggest chromosomal disorders counselor sydni microvascular ischemic disease. The calvarium is intact. Trace mastoid effusions. The paranasal sinuses are generally clear. Unremar kable soft tissues and orbits. IMPRESSION: No acute intracranial abnormality. ACT 112: Negative or not required by law. The above report was generated using voice recognition software. It may contain grammatical, syntax o r spelling errors. Electronically signed by: Steve Clarke M.D. 10/14/2021 3:21 PM
[2021-10-14] MEDS ORDERED: VANCOMYCIN HCL 2,000 MG in SODIUM CHLORIDE 0.9% 500 ML IV ONE (15:28)
[2021-10-14] MEDS ORDERED: VANCOMYCIN CONSULT ACTIVE PRN (15:28)
[2021-10-14] MEDS: MAGNESIUM SULFATE / D5W 1 GM/100 ML BAG IV SCH ×2 (15:31→17:28)
--- NOTE | 2021-10-14 16:26 | Emergency Department Note ---
Impression & Plan Neutropenic fever, Metastatic lung cancer (metastasis from lung to other site), Hypomagnesemia, Hypophosphatemia, Confusion ED Provider Note NAME: DALTON BALDWIN AGE: 61 SEX: F ARRIVES VIA: Walk-In INFORMANT: Patient ED PROVIDER(S): Lauri Serrano MD CHIEF COMPLAINT: SOB PLAN: Disposition: Admit MEDICAL DECISION MAKING: The patient is a pleasant with a past medical history of metastatic lung cancer who presents to the emergency department from the [facility] for evaluation of change in mental status/confusion with poor oral intake and tachycardia evolving over the past couple of weeks. Patient recently started on fentanyl patch for her cancer pain and notes that confusion began shortly thereafter. They report the patient did have low-grade fevers two days ago of 100.2. They treated this with Tylenol and it improved. They deny new cough, chest pain or sob, or diarrhea. Per records, the patient was initially diagnosed with lung cancer in 2016 and is status post surgical resection and adjuvant chemotherapy. She was subsequently found to have metastatic disease involving her left humerus with associated pathologic fracture status post ORIF in August 2021. Additional metastatic disease was identified in her pelvis the patient has had significant symptoms secondary to this and is on narcotics. She is followed by the [facility] and initiation of chemotherapy is pending. He is following with radiation oncology as well. On arrival the patient is acute on chronic ill-appearing, but no acute distress, afebrile with heart rate in the 140s and blood pressure 90s/50s but fluid responsive. O2 saturation is 100% on 2 L nasal cannula. EKG without overt acute ischemia. Chest x-ray negative for acute cardio pulmonary process WBC 1K with neutropenia with ANC of 0.44K, new from 2 weeks ago. Chemistry without significant metabolic acidosis. Sodium 129. Magnesium 1.3 and phosphorus 1.7 with repletion initiated. Electrolytes otherwise without significant abnormality. Lactic acid 1.4, within normal limits. BUN/creatinine is 40 consistent with the patient's clinically dry appearance. AST and ALT are 74 and 98, respectively, increased from prior. Total bilirubin is within normal limits and LFTs otherwise unremarkable. Troponin 0.03, within normal limits. BNP is within normal limits. Lipase is not elevated. Procalcitonin is marginally elevated at 0.65. Given the patient's neutropenia and the report of fevers over the past 48 hours she was treated empirically with cefdinir and vancomycin. HR improved with IVF hydration. CT of the head without contrast was negative for acute process. CTA of the chest negative for PE. Likely atelectasis. Progressive metastatic disease within the chest, abdomen, and pelvis. Case was d/w Dr. Claudio [facility] hospitalist who will evaluate the patient for adm ission. Triage Nursing notes reviewed and agree them. Prior medical records reviewed Vital Signs: reviewed and remarkable for tachycardia. Differential diagnosis: Infection, dehydration, metabolic abnormality, hypo/hyperglycemia, electrolyte disturbance, anemia, hypoxia, cardiac sources, intracerebral event, toxicologic, neurologic, as well as other pathologies. ER treatment provided: See below. Diagnostics interpreted by me: ECG: Sinus tachycardia, 136 bpm, no ectopy, ST abnormality, no overt ST elevation or depression, QTC 421, QRS 70. Cardiac Monitoring: An order for continuous cardiac monitoring was placed and demonstrated sinus tachycardia, 136 bpm, no ectopy. Laboratory studies: See below Imaging studies: See below Consultation(s): Case was d/w Dr. Claudio [facility] hospitalist who will evaluate the patient for admission. HPI: The patient is a pleasant with a past medical history of metastatic lung ca ncer who presents to the emergency department from the [facility] for evaluation of change in mental status/confusion with poor oral intake and tachycardia evolving over the past couple of weeks. Patient recently started on fentanyl patch for her cancer pain and notes that confusion began shortly thereafter. They report the patient did have low-grade fevers two days ago of 100.2. They treated this with Tylenol and it improved. They deny new cough, chest pain or sob, or diarrhea. Per records, the patient was initially diagnosed with lung cancer in 2016 and is status post surgical resection and adjuvant chemotherapy. She was subsequently found to have metastatic disease involving her left humerus with associated pathologic fracture status post ORIF in August 2021. Additional metastatic disease was identified in her pelvis the patient has had significant symptoms secondary to this and is on narcotics. She is followed by the cancer center and initiation of chemotherapy is pending. He is following with radiation oncology as well. ROS: See above HPI for pertinent positives & negatives. A total of 10 systems reviewed and were otherwise negative. PAST MEDICAL HISTORY:See Below PAST SURGICAL HISTORY:See Below FAMILY HISTORY:See Below SOCIAL HISTORY:See Below HOME MEDICATIONS:See Below ALLERGIES:See Below VITALS:See Below PHYSICAL EXAMINATION: GENERAL: Awake, alert, acute on chronically ill -appearing, in no distress HENT: Normocephalic, atraumatic. Oropharynx with dry mucous membranes, mucosal erosions. EYES: Normal conjunctiva. Sclera non-icteric. NECK: Supple. No nuchal rigidity. FROM. No JVD. RESPIRATORY: Diminished breath sounds left lung back otherwise clear CARDIAC: Tachycardic rate, normal rhythm. Extremities warm and well perfused. Pulses equal. ABDOMEN: Soft, non-distended. No tenderness to palpation. No rebound or guarding. No masses. RECTAL: Deferred. MUSCULOSKELETAL: Chest examination reveals no tenderness. The back is symmetrical on inspection without obvious abnormality. There is no CVA tenderness to palpation. No joint edema. LOWER EXTREMITIES: Calves are equal size bilaterally and non-tender. No edema. No discoloration. NEURO: Normal sensorium. No sensory or motor deficits noted. SKIN: No rash or jaundice noted. ED COURSE: Critical Care: I have personally spent greater than 55 minutes of critical care time in the direct management of this patient. This includes bedside care, interpretation of diagnostic studies, and testing, discussion with consultants, patient, and family members, and other required patient management activities. This 55 minutes is in excess of all separately billable procedures. Lauri Serrano MD Past Med/Surg History Medical History Allergic rhinitis, unspecified Anxiety Arthritis Bone lesion Degenerative joint disease of left hip Depression Esophagitis, unspecified Generalized anxiety disorder GERD (gastroesophageal reflux disease) Hyperlipidemia Laryngopharyngeal reflux Low back pain Lung cancer Lung nodule, solitary Non-small cell lung cancer Nontoxic multinodular goiter Ototoxic hearing loss of both ears Pain in left hip Personal history of colonic polyps Sensorineural hearing loss (SNHL) of both ears Tobacco abuse counseling Surgical History History of lobectomy of lung Left upper lobectomy 12/30/16 History of surgery on arm (~2021) Left humorous bone put together (broke bone due to lesion) History of tonsillectomy and adenoidectomy Hx of total hip arthroplasty Left hip January 2018 Family History Mother Breast cancer Grandmother Diabetes Brother Cancer Social History Smoking Status: Never smoker Tobacco Type: Cigarettes Years Smoked: 30; Second Hand Exposure: Yes; Hx Alcohol Use: Yes Alcohol type: beer Preferred Language: Ecuadorean Beliefs That Will Affect Care: None marital status: current occupational status: retired How many Children do You have: 3 Feels Safe at Home: Yes during the past year weight has: decreased > 10 lbs Allergies Allergies Allergy/AdvReac Type Severity Reaction Status Date / Time No Known Allergies Allergy Verified 10/14/21 15:35 Home Meds Home Medications Medication Instructions Recorded Confirmed hydrocodone 10 mg-acetaminophen 1 tab PO DIRECTED PRN tab 06/25/19 10/14/21 325 mg tablet rosuvastatin 5 mg tablet 5 mg PO DAILY 08/25/21 10/14/21 venlafaxine 75 mg capsule,extended 75 mg PO DAILY 08/25/21 10/14/21 release 24 hr oxycodone 5 mg tablet 10 mg PO Q4H PRN tab 09/23/21 10/14/21 fentanyl 25 mcg/hr transdermal 1 patch TRANSDERMAL Q72H 10/04/21 10/14/21 patch potassium chloride 20 mEq 20 meq PO DAILY 10/04/21 10/14/21 tablet,extended release dronabinol 5 mg capsule 5 mg PO AC 10/14/21 10/14/21 famotidine 40 mg tablet 40 mg PO QPM 10/14/21 10/14/21 Previous Rx's Medication Instructions Recorded lorazepam 1 mg tablet (Ativan) 1 mg SUBLINGUAL Q6H PRN #12 tab 08/25/21 ondansetron 4 mg disintegrating 4 mg PO Q6H PRN #12 tab 08/25/21 tablet Results & Data (ED) Vital Signs Vital Signs - 24 hr 10/14/21 12:56 10/14/21 13:01 10/14/21 13:14 Temperature 37.1 C Temperature Source Temporal Artery Scan Pulse Rate 143 H Pulse Rate [Finger] 135 H Pulse Rate from SpO2 Sensor Pulse Rhythm [Finger] Regular Pulse Strength [Finger] Normal Respiratory Rate 18 18 Respiratory Effort / Characteristics Non-Labored Spontaneous Non-Labored Respiratory Depth Normal Normal Respiratory Pattern Regular Regular Blood Pressure 99/56 L Blood Pressure [Right Arm] 116/66 Blood Pressure Mean 70 Blood Pressure Mean [Right Arm] 82 Blood Pressure Position Sitting Blood Pressure Position [Right Arm] Lying Pulse Oximetry 98 99 Oxygen Delivery Method Nasal Cannula Nasal Cannula Nasal Cannula Oxygen Flow Rate 2 4 2 Sepsis Recent Fever Within 48 Hours No Sepsis New/Unexplained Change in Mental Status No Sepsis Action Taken by Nursing No Action Required 10/14/21 13:19 10/14/21 14:48 10/14/21 16:58 Temperature Temperature Source Pulse Rate 120 H Pulse Rate [Finger] Pulse Rate from SpO2 Sensor Pulse Rhythm [Finger] Pulse Strength [Finger] Respiratory Rate 25 H Respiratory Effort / Characteristics Respiratory Depth Respiratory Pattern Blood Pressure Blood Pressure [Right Arm] Blood Pressure Mean Blood Pressure Mean [Right Arm] Blood Pressure Position Blood Pressure Position [Right Arm] Pulse Oximetry 100 81 L Oxygen Delivery Method Nasal Cannula Oxygen Flow Rate 2 Sepsis Recent Fever Within 48 Hours Sepsis New/Unexplained Change in Mental Status Sepsis Action Taken by Nursing 10/14/21 17:00 10/14/21 17:05 10/14/21 17:15 Temperature Temperature Source Pulse Rate 113 H 110 H Pulse Rate [Finger] 110 H Pulse Rate from SpO2 Sensor 113 H 110 H Pulse Rhythm [Finger] Regular Pulse Strength [Finger] Normal Respiratory Rate 20 23 18 Respiratory Effort / Characteristics Non-Labored Respiratory Depth Normal Respiratory Pattern Regular Blood Pressure 93/63 L Blood Pressure [Right Arm] 98/64 L Blood Pressure Mean 73 Blood Pressure Mean [Right Arm] 75 Blood Pressure Position Blood Pressure Position [Right Arm] Lying Pulse Oximetry 99 100 100 Oxygen Delivery Method Nasal Cannula Oxygen Flow Rate 2 Sepsis Recent Fever Within 48 Hours Sepsis New/Unexplained Change in Mental Status Sepsis Action Taken by Nursing 10/14/21 17:17 10/14/21 17:30 10/14/21 17:45 Temperature Temperature Source Pulse Rate 106 H 105 H Pulse Rate [Finger] 103 H Pulse Rate from SpO2 Sensor 107 H Pulse Rhythm [Finger] Regular Pulse Strength [Finger] Normal Respiratory Rate 20 22 18 Respiratory Effort / Characteristics Non-Labored Respiratory Depth Normal Respiratory Pattern Blood Pressure 98/64 L 106/74 Blood Pressure [Right Arm] 106/74 Blood Pressure Mean 75 84 Blood Pressure Mean [Right Arm] 84 Blood Pressure Position Blood Pressure Position [Right Arm] Lying Pulse Oximetry 100 100 Oxygen Delivery Method Nasal Cannula Oxygen Flow Rate 2 Sepsis Recent Fever Within 48 Hours Sepsis New/Unexplained Change in Mental Status Sepsis Action Taken by Nursing 10/14/21 18:00 10/14/21 18:10 10/14/21 18:30 Temperature Temperature Source Pulse Rate 107 H 106 H Pulse Rate [Finger] 110 H Pulse Rate from SpO2 Sensor Pulse Rhythm [Finger] Regular Pulse Strength [Finger] Normal Respiratory Rate 23 16 17 Respiratory Effort / Characteristics Non-Labored Respiratory Depth Normal Respiratory Pattern Blood Pressure 95/72 L 103/67 Blood Pressure [Right Arm] 103/67 Blood Pressure Mean 79 79 Blood Pressure Mean [Right Arm] 79 Blood Pressure Position Blood Pressure Position [Right Arm] Lying Pulse Oximetry 100 Oxygen Delivery Method Nasal Cannula Oxygen Flow Rate 2 Sepsis Recent Fever Within 48 Hours Sepsis New/Unexplained Change in Mental Status Sepsis Action Taken by Nursing 10/14/21 19:00 10/14/21 19:30 10/14/21 20:00 Temperature Temperature Source Pulse Rate 113 H 114 H 114 H Pulse Rate [Finger] Pulse Rate from SpO2 Sensor Pulse Rhythm [Finger] Pulse Strength [Finger] Respiratory Rate 23 18 21 Respiratory Effort / Characteristics Respiratory Depth Respiratory Pattern Blood Pressure 93/69 L 107/57 L 96/64 L Blood Pressure [Right Arm] Blood Pressure Mean 77 73 74 Blood Pressure Mean [Right Arm] Blood Pressure Position Blood Pressure Position [Right Arm] Pulse Oximetry Oxygen Delivery Method Oxygen Flow Rate Sepsis Recent Fever Within 48 Hours Sepsis New/Unexplained Change in Mental Status Sepsis Action Taken by Nursing Laboratory Data Attestation: I reviewed the patient's lab results. Result diagrams: 10/14/21 14:00 10/14/21 14:00 Lab Results 10/14/21 10/14/21 10/14/21 Range/Units 14:00 14:00 14:00 WBC 1.09 L (4.8-10.8) K/uL RBC 3.68 L (4.2-5.4) M/uL Hgb 9.4 L (12.0-16.0) g/dL Hct 29.9 L (37-47) % MCV 81.3 (80-100) fL MCH 25.5 (25-34) pg MCHC 31.4 L (32-36) g/dL RDW Std Deviation 47.3 H (36.4-46.3) fL RDW Coeff of Eleni 16.0 H (11.5-14.5) % Plt Count 135 (130-400) K/uL MPV 9.4 (7.4-10.4) fL Neutrophils % (Manual) 40.0 % Lymphocytes % (Manual) 55.0 % Eosinophils % (Manual) 5.0 % Neutrophils # (Manual) 0.44 L (1.4-6.5) K/uL Total Absolute Neuts 0.44 L* (1.4-6.5) K/uL Lymphocytes # (Manual) 0.60 L (1.2-3.4) K/uL Total Abs Lymphocytes 0.60 L (1.2-3.4) K/uL Eosinophils # (Manual) 0.05 (0-0.5) K/uL PT (9.0-12.0) Seconds INR (0.9-1.1) Sodium 129 L (136-145) mmol/L Potassium 4.2 (3.5-5.1) mmol/L Chloride 100 (98-107) mmol/L Carbon Dioxide 19 L (21-32) mmol/L Anion Gap 10 (3-11) BUN 20 (6-23) mg/dl Creatinine 0.50 L (0.6-1.2) mg/dl Est Cr Clr Drug Dosing Not Reportable Est GFR ( Amer) 119.4 ml/min Est GFR (Non-Af Amer) 103.0 ml/min BUN/Creatinine Ratio 40.0 H (10-20) Glucose 118 H (70-99(Fasting)) mg/dl Lactate (0.4-2.0) mmol/L Calcium 7.2 L (8.5-10.1) mg/dl Phosphorus 1.7 L (2.5-4.9) mg/dl Magnesium 1.3 L (1.7-2.4) mg/dl Total Bilirubin 0.8 (0.2-1.0) mg/dl AST 74 H (13-39) U/L ALT 98 H (7-52) U/L Alkaline Phosphatase 164 H (34-104) U/L Troponin I 0.03 (0-0.04) ng/ml B-Natriuretic Peptide 62 (0-100) pg/ml Total Protein 6.5 (6.0-8.3) gm/dl Albumin 2.9 L (3.4-5.0) gm/dl Globulin 3.6 (2.5-4.0) gm/dl Albumin/Globulin Ratio 0.8 L (0.9-2) Lipase 6 L (11-82) U/L Procalcitonin (0-0.5) ng/ml Urine Color Urine Appearance (Clear) Urine pH (4.5-7.5) Ur Specific [place] (1.000-1.030) Urine Protein (Negative) Urine Glucose (UA) (Negative) Urine Ketones (Negative) Urine Blood (Negative) Urine Nitrite (Negative) Urine Bilirubin (Negative) Urine Urobilinogen (Negative) Ur Leukocyte Esterase (Negative) Urine WBC (Auto) (0-5) /hpf Urine RBC (Auto) (0-4) /hpf U Hyaline Cast (Auto) (0-5) /lpf U Epithel Cells (Auto) (0-5) /lpf Urine Bacteria (Auto) (Negative) Urine Yeast (None Prsent) SARS-CoV-2, RNA, NAAT (NEGATIVE) 10/14/21 10/14/21 10/14/21 Range/Units 14:00 14:43 14:53 WBC (4.8-10.8) K/uL RBC (4.2-5.4) M/uL Hgb (12.0-16.0) g/dL Hct (37-47) % MCV (80-100) fL MCH (25-34) pg MCHC (32-36) g/dL RDW Std Deviation (36.4-46.3) fL RDW Coeff of Eleni (11.5-14.5) % Plt Count (130-400) K/uL MPV (7.4-10.4) fL Neutrophils % (Manual) % Lymphocytes % (Manual) % Eosinophils % (Manual) % Neutrophils # (Manual) (1.4-6.5) K/uL Total Absolute Neuts (1.4-6.5) K/uL Lymphocytes # (Manual) (1.2-3.4) K/uL Total Abs Lymphocytes (1.2-3.4) K/uL Eosinophils # (Manual) (0-0.5) K/uL PT 12.4 H (9.0-12.0) Seconds INR 1.2 H (0.9-1.1) Sodium (136-145) mmol/L Potassium (3.5-5.1) mmol/L Chloride (98-107) mmol/L Carbon Dioxide (21-32) mmol/L Anion Gap (3-11) BUN (6-23) mg/dl Creatinine (0.6-1.2) mg/dl Est Cr Clr Drug Dosing Est GFR ( Amer) ml/min Est GFR (Non-Af Amer) ml/min BUN/Creatinine Ratio (10-20) Glucose (70-99(Fasting)) mg/dl Lactate 1.4 (0.4-2.0) mmol/L Calcium (8.5-10.1) mg/dl Phosphorus (2.5-4.9) mg/dl Magnesium (1.7-2.4) mg/dl Total Bilirubin (0.2-1.0) mg/dl AST (13-39) U/L ALT (7-52) U/L Alkaline Phosphatase (34-104) U/L Troponin I (0-0.04) ng/ml B-Natriuretic Peptide (0-100) pg/ml Total Protein (6.0-8.3) gm/dl Albumin (3.4-5.0) gm/dl Globulin (2.5-4.0) gm/dl Albumin/Globulin Ratio (0.9-2) Lipase (11-82) U/L Procalcitonin 0.65 H (0-0.5) ng/ml Urine Color Urine Appearance (Clear) Urine pH (4.5-7.5) Ur Specific [place] (1.000-1.030) Urine Protein (Negative) Urine Glucose (UA) (Negative) Urine Ketones (Negative) Urine Blood (Negative) Urine Nitrite (Negative) Urine Bilirubin (Negative) Urine Urobilinogen (Negative) Ur Leukocyte Esterase (Negative) Urine WBC (Auto) (0-5) /hpf Urine RBC (Auto) (0-4) /hpf U Hyaline Cast (Auto) (0-5) /lpf U Epithel Cells (Auto) (0-5) /lpf Urine Bacteria (Auto) (Negative) Urine Yeast (None Prsent) SARS-CoV-2, RNA, NAAT (NEGATIVE) 10/14/21 10/14/21 Range/Units 17:00 18:43 WBC (4.8-10.8) K/uL RBC (4.2-5.4) M/uL Hgb (12.0-16.0) g/dL Hct (37-47) % MCV (80-100) fL MCH (25-34) pg MCHC (32-36) g/dL RDW Std Deviation (36.4-46.3) fL RDW Coeff of Eleni (11.5-14.5) % Plt Count (130-400) K/uL MPV (7.4-10.4) fL Neutrophils % (Manual) % Lymphocytes % (Manual) % Eosinophils % (Manual) % Neutrophils # (Manual) (1.4-6.5) K/uL Total Absolute Neuts (1.4-6.5) K/uL Lymphocytes # (Manual) (1.2-3.4) K/uL Total Abs Lymphocytes (1.2-3.4) K/uL Eosinophils # (Manual) (0-0.5) K/uL PT (9.0-12.0) Seconds INR (0.9-1.1) Sodium (136-145) mmol/L Potassium (3.5-5.1) mmol/L Chloride (98-107) mmol/L Carbon Dioxide (21-32) mmol/L Anion Gap (3-11) BUN (6-23) mg/dl Creatinine (0.6-1.2) mg/dl Est Cr Clr Drug Dosing Est GFR ( Amer) ml/min Est GFR (Non-Af Amer) ml/min BUN/Creatinine Ratio (10-20) Glucose (70-99(Fasting)) mg/dl Lactate (0.4-2.0) mmol/L Calcium (8.5-10.1) mg/dl Phosphorus (2.5-4.9) mg/dl Magnesium (1.7-2.4) mg/dl Total Bilirubin (0.2-1.0) mg/dl AST (13-39) U/L ALT (7-52) U/L Alkaline Phosphatase (34-104) U/L Troponin I (0-0.04) ng/ml B-Natriuretic Peptide (0-100) pg/ml Total Protein (6.0-8.3) gm/dl Albumin (3.4-5.0) gm/dl Globulin (2.5-4.0) gm/dl Albumin/Globulin Ratio (0.9-2) Lipase (11-82) U/L Procalcitonin (0-0.5) ng/ml Urine Color Dark Yellow Urine Appearance Cloudy A (Clear) Urine pH 6.0 (4.5-7.5) Ur Specific [place] 1.023 (1.000-1.030) Urine Protein 2+ H (Negative) Urine Glucose (UA) Negative (Negative) Urine Ketones Negative (Negative) Urine Blood Negative (Negative) Urine Nitrite Negative (Negative) Urine Bilirubin Negative (Negative) Urine Urobilinogen Negative (Negative) Ur Leukocyte Esterase Trace H (Negative) Urine WBC (Auto) 10-30 H (0-5) /hpf Urine RBC (Auto) 0-4 (0-4) /hpf U Hyaline Cast (Auto) 5-10 H (0-5) /lpf U Epithel Cells (Auto) >30 H (0-5) /lpf Urine Bacteria (Auto) Negative (Negative) Urine Yeast Budding A (None Prsent) SARS-CoV-2, RNA, NAAT NEGATIVE (NEGATIVE) Administered Medications Discontinued Medications Sodium Chloride (Nss 1000ml) 1,000 mls @ 999 mls/hr IV .Q1H1M ONE Stop: 10/14/21 14:27 Last Infusion: 10/14/21 14:57 Dose: 999 mls/hr Documented by: [id number] Admin: 10/14/21 13:56 Dose: 999 mls/hr Documented by: [id number] Cefepime HCl (Maxipime) 2,000 mg in 20 mls @ 5 mls/min IV NOW STA; Protocol Stop: 10/14/21 14:27 Last Admin: 10/14/21 15:30 Dose: 5 mls/min Documented by: [id number] Lactated Ringer's (Lr) 1,000 mls @ 999 mls/hr IV .Q1H1M ONE Stop: 10/14/21 15:24 Last Infusion: 10/14/21 15:49 Dose: 999 mls/hr Documented by: [id number] Admin: 10/14/21 14:48 Dose: 999 mls/hr Documented by: [id number] Acetaminophen (Ofirmev) 1,000 mg in 100 mls @ 400 mls/hr IV NOW STA Stop: 10/14/21 15:06 Last Infusion: 10/14/21 15:45 Dose: 400 mls/hr Documented by: [id number] Admin: 10/14/21 15:30 Dose: 400 mls/hr Documented by: [id number] Famotidine (Pepcid 20mg Iv Push) 20 mg in 5 mls @ 2.5 mls/min IV NOW STA Stop: 10/14/21 14:53 Last Admin: 10/14/21 15:30 Dose: 2.5 mls/min Documented by: [id number] Magnesium Sulfate/Dextrose (Magnesium Sulfate / D5w) 1 gm in 100 mls @ 100 mls/hr IV Q1H SERENA Stop: 10/14/21 16:54 Last Infusion: 10/14/21 18:28 Dose: 100 mls/hr Documented by: [id number] Infusion: 10/14/21 18:23 Dose: 100 mls/hr Documented by: [id number] Admin: 10/14/21 17:28 Dose: 100 mls/hr Documented by: [id number] Infusion: 10/14/21 17:28 Dose: 100 mls/hr Documented by: [id number] Admin: 10/14/21 15:31 Dose: 100 mls/hr Documented by: [id number] Potassium Phosphate 6 mmol/ (Dextrose) 102 mls @ 88 mls/hr IV ONE ONE Stop: 10/14/21 16:24 Last Infusion: 10/14/21 18:05 Dose: 88 mls/hr Documented by: [id number] Admin: 10/14/21 16:55 Dose: 88 mls/hr Documented by: [id number] Vancomycin HCl 2,000 mg/ (Sodium Chloride) 540 mls @ 200 mls/hr IV NOW ONE Stop: 10/14/21 18:09 Last Admin: 10/14/21 16:55 Dose: 200 mls/hr Documented by: [id number] Ioversol (Optiray 320 125ml) 119 ml IV ONCE ONE Stop: 10/14/21 16:36 Last Admin: 10/14/21 16:35 Dose: 119 ml Documented by: [id number] Ondansetron HCl (Ondansetron Inj 2 Mg/Ml 2 Ml Vial) 4 mg IV NOW STA Stop: 10/14/21 14:53 Last Admin: 10/14/21 16:56 Dose: Not Given Documented by: [id number] Imaging Data Radiologist's Impression: Chest X-Ray 10/14/21 13:27 XR chest 1V portable HISTORY: Atypical Chest Pain COMPARISON: Chest 09/29/2021. FINDINGS: Stable volume loss, suture material, and left basilar linear densities within the left lung likely representing postoperative change. The heart is stable in size. The right lung is clear. No evidence for pulmonary edema. No pleural effusions. No pneumothorax. Partially visualized postoperative changes within the mid shaft left humerus are again noted. IMPRESSION: No significant change compared to the prior study. No acute process. Stable postoperative changes within the left hemithorax. ACT 112: Negative or not required by law. Electronically signed by: Christoph Harden M.D. 10/14/2021 1:50 PM Abdomen/Pelvis CT 10/14/21 14:24 CT OF THE ABDOMEN AND PELVIS WITH CONTRAST CLINICAL HISTORY: Neutropenic fever. Altered mental status. Metastatic lung cancer. COMPARISON STUDY: CT of the abdomen August 24, 2021. TECHNIQUE: Following IV administration of 119 mL of Optiray, axial images of the abdomen and pelvis were obtained from the lung bases to the proximal femurs. Images were reviewed in the axial, sagittal, and coronal planes. IV contrast was administered without complication. Automated exposure control was utilized for the study. A dose lowering technique was utilized adhering to the principles of ALARA. FINDINGS: Please note that the chest CT will be reported separately. No pneumatosis, free air or portal venous gas is present. The liver, spleen, right adrenal gland, kidneys and pancreas are unremarkable with exception of a few suspected renal cyst. A 2.4 x 1.5 cm left adrenal nodule has increased in size since CT of August 24, 2021 when it measured 2.2 x 1.3 cm. There is no evidence for a bowel obstruction. Moderate amount of stool within the colon is noted. Left hip arthroplasty is present. Major vasculature is patent. There is no hydronephrosis. A left retroperitoneal metastasis on image 104 of 476 measures 3.7 cm. It previously measured 1.6 cm. An omental implant on image 156 measures 1.1 cm. It previously measured 0.6 cm. Note is again made of a destructive lesion involving S1 and S2 with moderate to severe central canal stenosis. A portion of this mass does not enhance likely reflecting response to radiation therapy. Note is made of a 2 cm enhancing focus within the right L3-L4 neural foramen consistent with malignancy. IMPRESSION: 1. Progression of metastatic disease since CT of August 24, 2021, as described above. This includes an enhancing lesion within the right L3-L4 neural foramen, a left retroperitoneal metastasis and omental implant. 2. Redemonstration of an S1-S2 metastasis which results in moderate to severe central canal stenosis. Hypoenhancing foci within this lesion suggest radiation treatment response. 3. No bowel obstruction. No bowel wall thickening. ACT 112: Negative or not required by law. Electronically signed by: Harshad Beasley M.D. 10/14/2021 4:57 PM Chest CTA 10/14/21 14:24 CT angio chest PE protocol CT DOSE: 1444.00 mGycm HISTORY: 61 years-old Female with metastatic ca, tachycardia, PE. Acute tachycardia with shortness of breath and fever. Known metastatic disease TECHNIQUE: Multiple CTA images of the chest were obtained after the intravenous administration of 119 ml Optiray. Coronal and sagittal MIPS were obtained from the axial data set and were submitted for review. All measurements were obtained according to NASCET criteria. A dose lowering technique was utilized adhering to the principles of ALARA. COMPARISON: CT abdomen and pelvis of same day, CT chest and abdomen 08/24/2021 FINDINGS: CTA: Mild to moderate cardiomegaly. Small pericardial effusion. Atherosclerosis of the thoracic aorta without aneurysm or dissection. Unremarkable pulmonary artery. No pulmonary emboli are identified. Respiratory motion artifact limits evaluation of the segmental and subsegmental branches. CT CHEST: No thyroid nodule. Prominent right-sided clavicular lymph node redemonstrated. Pathologically enlarged lymph nodes within the superior mediastinum redemonstrated measuring up to 2.0 x 1.7 cm on image 240 which have progressed from prior. Large mass/conglomerate masses of the anterior mediastinum measuring up to 5.7 x 2.5 cm on image 184 has progressed from prior. This extends into the adjacent chest wall. Edema with prior left upper lobe pulmonary resection. 7 mm solid nodule of the left lung on image 169 is unchanged. 1.4 x 1.4 center nodule of the left lung base is stable with adjacent linear consolidation. Mild right basilar atelectasis. The central airways are patent. Increased size of a 3.6 cm left chest wall metastatic lesion on image 1. Subc utaneous 9 mm soft tissue nodule of the left posterior chest wall on image 96 previously measured 7 mm. Progressive osteolytic skeletal metastasis with the largest lesions within the sternum and spine. No acute pathologic fracture. Wall thickening of the distal esophagus. IMPRESSION: 1. No pulmonary emboli identified. 2. Progressively worsened metastatic disease of the chest as described above. 3. Emphysema with prior left upper lobe pulmonary resection. 4. Mild bibasilar opacities suggest atelectasis. 5. Please refer to the CT abdomen and pelvis study of same day for additional findings. ACT 112: Negative or not required by law. The above report was generated using voice recognition software. It may contain grammatical, syntax or spelling errors. Electronically signed by: Steve Clarke M.D. 10/14/2021 5:[address] 10/14/21 14:24 CT head/brain wo con CLINICAL HISTORY: 61 years-old Female with ams, metastatic ca. Acutely altered mental status TECHNIQUE: Multiple axial CT images of the head were obtained without contrast. A dose lowering technique was utilized adhering to the principles of ALARA. CT DOSE: 537.48 mGy.cm COMPARISON: Brain MRI 09/07/2021 FINDINGS: No acute intracranial hemorrhage, midline shift, intra-axial mass, hydrocephalus, territorial ischemia or abnormal extra-axial collection. Calcified 8 mm meningioma along the left posterior aspect of the cerebral hemisphere on image 17 series 2 is unchanged. Mild white matter hypodensities suggest chronic microvascular ischemic disease. The calvarium is intact. Trace mastoid effusions. The paranasal sinuses are generally clear. Unremarkable soft tissues and orbits. IMPRESSION: No acute intracranial abnormality. ACT 112: Negative or not required by law. The above report was generated using voice recognition software. It may contain grammatical, syntax or spelling errors. Electronically signed by: Steve Clarke M.D. 10/14/2021 3:21 PM Discharge Plan Visit Data Chief Complaint: Tachycardia Stated Complaint: TACHYCARDIA/CONFUSION ED Provider: Lauri Serrano Discharge Problem: Neutropenic fever, Metastatic lung cancer (metastasis from lung to other site), Hypomagnesemia, Hypophosphatemia, Confusion Forms Stand Alone Forms: [facility] Prescriptions Prescriptions: No Action fentanyl 25 mcg/hr patch 72 hour 1 patch transdermal Q72H RF: 0 potassium chloride 20 mEq tablet extended release 20 meq PO DAILY RF: 0 oxycodone 5 mg tablet 10 mg PO Q4H PRN (Reason: Pain) RF: 0 hydrocodone-acetaminophen 10-325 mg tablet 1 tab PO DIRECTED PRN (Reason: Pain) RF: 0 venlafaxine 75 mg capsule,extended release 24hr 75 mg PO DAILY RF: 0 rosuvastatin 5 mg tablet 5 mg PO DAILY RF: 0 ondansetron 4 mg tablet,disintegrating 4 mg PO Q6H PRN (Reason: nausea and vomiting) Qty: 12 RF: 0 lorazepam [Ativan] 1 mg tablet 1 mg sublingual Q6H PRN (Reason: spasms) Qty: 12 RF: 0 dronabinol 5 mg capsule 5 mg PO AC RF: 0 famotidine 40 mg tablet 40 mg PO QPM RF: 0 Referrals Referrals: Malorie Perkins CRNP [Primary Care Provider] - Discharge Problem: Metastatic lung cancer (metastasis from lung to other site) Qualifiers: Laterality: unspecified laterality Qualified Code(s): C34.90 - Malignant neopl asm of unspecified part of unspecified bronchus or lung
[2021-10-14] MEDS ORDERED: OPTIRAY 320 125ml IV ONE (16:35)
--- NOTE | 2021-10-14 16:59 | CT Scan Report ---
CT OF THE ABDOMEN AND PELVIS WITH CONTRAST CLINICAL HISTORY: Neutropenic fever. Altered mental status. Metastatic lung cancer. COMPARISON STUDY: CT of the abdomen August 24, 2021. TECHNIQUE: Following IV administration of 119 mL of Optiray, axial images of the abdomen and pelvis w ere obtained from the lung bases to the proximal femurs. Images were reviewed in the axial, sagittal, and coronal planes. IV contrast was administered without complication. Automated exposure control w as utilized for the study. A dose lowering technique was utilized adhering to the principles of GABBY Carvalho. FINDINGS: Please note that the chest CT will be reported separately. No pneumatosis, free air or port al venous gas is present. The liver, spleen, right adrenal gland, kidneys and pancreas are unremarkab le with exception of a few suspected renal cyst. A 2.4 x 1.5 cm left adrenal nodule has increased in size since CT of August 24, 2021 when it measured 2.2 x 1.3 cm. There is no evidence for a bowel obst ruction. Moderate amount of stool within the colon is noted. Left hip arthroplasty is present. Major vasculature is patent. There is no hydronephrosis. A left retroperitoneal metastasis on image 104 of 476 measures 3.7 cm. It previously measured 1.6 cm. An omental implant on image 156 measures 1.1 cm. It previously measured 0.6 cm. Note is again made of a destructive lesion involving S1 and S2 with mo derate to severe central canal stenosis. A portion of this mass does not enhance likely reflecting re sponse to radiation therapy. Note is made of a 2 cm enhancing focus within the right L3-L4 neural for amen consistent with malignancy. IMPRESSION: 1. Progression of metastatic disease since CT of August 24, 2021, as described above. This includes a n enhancing lesion within the right L3-L4 neural foramen, a left retroperitoneal metastasis and oment al implant. 2. Redemonstration of an S1-S2 metastasis which results in moderate to severe central canal stenosis. Hypoenhancing foci within this lesion suggest radiation treatment response. 3. No bowel obstruction. No bowel wall thickening. ACT 112: Negative or not required by law. Electronically signed by: Harshad Beasley M.D. 10/14/2021 4:57 PM
--- NOTE | 2021-10-14 17:03 | CT Scan Report ---
CT angio chest PE protocol CT DOSE: 1444.00 mGycm HISTORY: 61 years-old Female with metastatic ca, tachycardia, PE. Acute tachycardia with shortness of breath and fever. Known metastatic disease TECHNIQUE: Multiple CTA images of the chest were obtained after the intravenous administration of 119 ml Optiray. Coronal and sagittal MIPS were obtained from the axial data set and were submitted for review. All measurements were obtained according to NASCET criteria. A dose lowering technique was u tilized adhering to the principles of ALARA. COMPARISON: CT abdomen and pelvis of same day, CT chest and abdomen 08/24/2021 FINDINGS: CTA: Mild to moderate cardiomegaly. Small pericardial effusion. Atherosclerosis of the thoracic aorta with out aneurysm or dissection. Unremarkable pulmonary artery. No pulmonary emboli are identified. Respir atory motion artifact limits evaluation of the segmental and subsegmental branches. CT CHEST: No thyroid nodule. Prominent right-sided clavicular lymph node redemonstrated. Pathologically enlarge d lymph nodes within the superior mediastinum redemonstrated measuring up to 2.0 x 1.7 cm on image 24 0 which have progressed from prior. Large mass/conglomerate masses of the anterior mediastinum measur ing up to 5.7 x 2.5 cm on image 184 has progressed from prior. This extends into the adjacent chest w all. Edema with prior left upper lobe pulmonary resection. 7 mm solid nodule of the left lung on image 169 is unchanged. 1.4 x 1.4 center nodule of the left lung base is stable with adjacent linear consolida tion. Mild right basilar atelectasis. The central airways are patent. Increased size of a 3.6 cm left chest wall metastatic lesion on image 1. Subcutaneous 9 mm soft tissu e nodule of the left posterior chest wall on image 96 previously measured 7 mm. Progressive osteolyti c skeletal metastasis with the largest lesions within the sternum and spine. No acute pathologic frac ture. Wall thickening of the distal esophagus. IMPRESSION: 1. No pulmonary emboli identified. 2. Progressively worsened metastatic disease of the chest as described above. 3. Emphysema with prior left upper lobe pulmonary resection. 4. Mild bibasilar opacities suggest atelectasis. 5. Please refer to the CT abdomen and pelvis study of same day for additional findings. ACT 112: Negative or not required by law. The above report was generated using voice recognition software. It may contain grammatical, syntax o r spelling errors. Electronically signed by: Steve Clarke M.D. 10/14/2021 5:01 PM
[2021-10-14 17:33] LABS: Appearance Urine Cloudy (Clear); Bacteria Urine Automated Negative (Negative); Bilirubin Urine Negative (Negative); Blood Urine Negative (Negative); Color Urine Dark Yellow; Epithelial Cell Urine Auto >30 /lpf (0-5); Glucose Urine UA Negative (Negative); Ketones Urine Negative (Negative); Leukocyte Esterase Urine Trace (Negative); Nitrite Urine Negative (Negative); Protein Urine 2+ (Negative); Specific Gravity Urine 1.023 (1.000-1.030); Urobilinogen Urine Negative (Negative)
--- NOTE | 2021-10-14 17:46 | Electrocardiogram Report ---
Test Reason : Blood Pressure : / mmHG Vent. Rate : 136 BPM Atrial Rate : 136 BPM P-R Int : 132 ms QRS Dur : 070 ms QT Int : 280 ms P-R-T Axes : 008 011 070 degrees QTc Int : 421 ms Sinus tachycardia Abnormal ECG Confirmed by Alejandro Rawls ([id number]) on 10/14/2021 5:46:23 PM Referred By: REFERRED SELF Confirmed By:Delta Rawls
--- NOTE | 2021-10-14 17:49 | History & Physical Report ---
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 feels related to increasing Fentanyl dosing. Difficult to distinguish between opiate use, benzo use, cancer, chemo, electrolyte abnormalities and possible infection Discontinue fentanyl patch as radiation should be helping with pain and use oxycodone as needed (low tolerance to increase this) (4) Poor appetite: Plan: Pre dates her chemotherapy. Denies odynophagia or dysphagia. Concerning this is primarily related to her cancer but possibly also opiate use. IV fluids currently Boost drinks Certainly chemo and electrolyte abnormalities may be making this worse acutely (5) Pancytopenia due to chemotherapy: Plan: Consult oncology (6) Hypomagnesemia: Plan: Mg level 1.3 on admission Mg sulphate 1g x2 IV given in ER. Repeat with AM labs (7) Hypophosphatemia: Plan: PO level 1.7 on admission 6mmol K Phos given in ER Repeat with AM labs (8) Laryngopharyngeal reflux: Plan: Continue famotidine 40mg PO daily Plan: VTE Prophylaxis - deferred pending hemoglobin stability Diet - regular Disposition - admit to med/tele Admission and Anticipated Discharge Date Admission Date: Oct 14, 2021 History of Present Illness Chief Complaint: Poor appetite, confusion, weakness Primary Care Provider: Malorie Perkins Galina De Leon is a 61-year-old female with stage IV squamous cell lung cancer who presents to the ER from the [facility] due to decreased oral intake, increasingly weak and confused. She started a fentanyl patch 3 weeks ago and has been more confused since increasing dosage change to 25 mcg - her feels her symptoms are related to this dose change. She is also prescribed oxycodone which she takes 3-4 times a day. Confusion has been getting progressively worse over the last 2-3 weeks. However at the same time she is also receiving radiation therapy to her arm and pelvis in addition to chemot herapy with carboplatin/paclitaxel/pembrolizumab which started on November 02. Her reports buying her boost drinks but she only able to manage one a day. She denies any dysphagia or odynophagia - only just not feeling like she wants to eat. No nausea, vomiting, abdominal pain, change on bowels, melena or bright red blood in stool. This poor appeite has been going on for 2-3 weeks and pre-dates her chemotherapy. She was treated for a sinus infection in the ER on 09/29/21 however reports no current sinus pain or nasal congestion. No new cough or shortness of breath however she was started on oxygen yesterday. In the ER she was noted to be pancytopenic with absolute neutrophil count of 0.44 Of note she underwent ORIF to her left humerus on 09/10/21 at [facility] but still has the stitches in place as they were waiting for follow up down at [place]. Stitches have been in the last month. [facility] in Aug. She notes this is the only place she currently has pain, although if moving her arm around with significant issue. In the ER due to mentioning a low grade fever of over 100 degrees Fahrenheit for the last 2 days she was treated with empiric antibiotics. However her reports she never had a fever above 101 degrees Fahrenheit. It was also recommend admission due to her decreased oral intake, confusion and generalized weakness. Allergies Allergy/AdvReac Type Severity Reaction Status Date / Time No Known Allergies Allergy Verified 10/14/21 15:35 Home Medications Medication Instructions Recorded Confirmed Type hydrocodone 10 mg-acetaminophen 1 tab PO DIRECTED PRN tab 06/25/19 10/14/21 History 325 mg tablet lorazepam 1 mg tablet (Ativan) 1 mg SUBLINGUAL Q6H PRN #12 tab 08/25/21 10/14/21 Rx ondansetron 4 mg disintegrating 4 mg PO Q6H PRN #12 tab 08/25/21 10/14/21 Rx tablet rosuvastatin 5 mg tablet 5 mg PO DAILY 08/25/21 10/14/21 History venlafaxine 75 mg capsule,extended 75 mg PO DAILY 08/25/21 10/14/21 History release 24 hr oxycodone 5 mg tablet 10 mg PO Q4H PRN tab 09/23/21 10/14/21 History fentanyl 25 mcg/hr transdermal 1 patch TRANSDERMAL Q72H 10/04/21 10/14/21 History patch potassium chloride 20 mEq 20 meq PO DAILY 10/04/21 10/14/21 History tablet,extended release dronabinol 5 mg capsule 5 mg PO AC 10/14/21 10/14/21 History famotidine 40 mg tablet 40 mg PO QPM 10/14/21 10/14/21 History Past Med/Surg History Medical History Allergic rhinitis, unspecified Anxiety Arthritis Bone lesion Degenerative joint disease of left hip Depression Esophagitis, unspecified Generalized anxiety disorder GERD (gastroesophageal reflux disease) Hyperlipidemia Laryngopharyngeal reflux Low back pain Lung cancer Lung nodule, solitary Non-small cell lung cancer Nontoxic multinodular goiter Ototoxic hearing loss of both ears Pain in left hip Personal history of colonic polyps Sensorineural hearing loss (SNHL) of both ears Tobacco abuse counseling Surgical History History of lobectomy of lung Left upper lobectomy 12/30/16 History of surgery on arm (~2021) Left humorous bone put together (broke bone due to lesion) History of tonsillectomy and adenoidectomy Hx of total hip arthroplasty Left hip January 2018 Family History Mother Breast cancer Grandmother Diabetes Brother Cancer Social History Smoking Status: Smoker, status unknown Tobacco Type: Cigarettes Years Smoked: 30; Second Hand Exposure: Yes; Hx Alcohol Use: Yes Alcohol type: beer Hx Substance Use: No Preferred Language: Omani Communication Ability: Effective 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 Beliefs That Will Affect Care: None marital status: Current Living Situation: Spouse current occupational status: retired How many Children do You have: 3 Other Information That Helps Us Care for You: No Feels Safe at Home: Yes Safety Concerns: Feels Safe At This Time during the past year weight has: decreased > 10 lbs Assistive Devices: Glasses and Oxygen - Continuous Physical Exam Constitutional: well developed; + not well nourished and no acute distress Eyes: PERRL, conjunctivae normal, anicteric sclerae ENMT: external ear and nose normal, oropharynx normal Neck: trachea midline, no thyromegaly Respiratory: normal respiratory effort, lungs clear to auscultation Cardiovascular: Rate/Rhythm: regular rhythm and + tachycardic Heart Sounds: no murmur Extremities: normal capillary refill; no calf tenderness and no pedal edema Gastrointestinal (Abdomen): normal bowel sounds, soft, nontender, no hepatosplenomegaly Musculoskeletal: no cyanosis or clubbing, extremities motor strength 5/5 Skin: no rashes, warm and dry Neurologic: moves all extremities, awake and + confused; no focal motor deficits (no lateralizing weakness) Motor/Sensory: no tremor and no pronator drift Cranial Nerves: PERRL, EOM intact bilaterally, normal facial strength, able to rotate head bilaterally, able to elevate shoulders bilaterally, no nystagmus and symmetric palate elevation Psychiatric: Orientation: alert, oriented to person and oriented to place; + not oriented to time Results & Data Results & Data ([facility]) Vital Signs (Past 12 Hours) Vital Signs Temp Pulse Pulse Resp BP BP Pulse Ox 10/14/21 17:15 110 H 18 98/64 L 100 10/14/21 13:19 100 10/14/21 13:14 135 H 18 116/66 99 10/14/21 13:01 37.1 C 143 H 18 99/56 L [address] angio chest PE protocol CT DOSE: 1444.00 mGycm HISTORY: 61 years-old Female with metastatic ca, tachycardia, PE. Acute tachycardia with shortness of breath and fever. Known metastatic disease TECHNIQUE: Multiple CTA images of the chest were obtained after the intravenous administration of 119 ml Optiray. Coronal and sagittal MIPS were obtained from the axial data set and were submitted for review. All measurements were obtained according to NASCET criteria. A dose lowering technique was utilized adhering to the principles of ALARA. COMPARISON: CT abdomen and pelvis of same day, CT chest and abdomen 08/24/2021 FINDINGS: CTA: Mild to moderate cardiomegaly. Small pericardial effusion. Atherosclerosis of the thoracic aorta without aneurysm or dissection. Unremarkable pulmonary artery. No pulmonary emboli are identified. Respiratory motion artifact limits evaluation of the segmental and subsegmental branches. CT CHEST: No thyroid nodule. Prominent right-sided clavicular lymph node redemonstrated. Pathologically enlarged lymph nodes within the superior mediastinum redemonstrated measuring up to 2.0 x 1.7 cm on image 240 which have progressed from prior. Large mass/conglomerate masses of the anterior mediastinum measuring up to 5.7 x 2.5 cm on image 184 has progressed from prior. This extends into the adjacent chest wall. Edema with prior left upper lobe pulmonary resection. 7 mm solid nodule of the left lung on image 169 is unchanged. 1.4 x 1.4 center nodule of the left lung base is stable with adjacent linear consolidation. Mild right basilar atelectasis. The central airways are patent. Increased size of a 3.6 cm left chest wall metastatic lesion on image 1. Subcutaneous 9 mm soft tissue nodule of the left posterior chest wall on image 96 previously measured 7 mm. Progressive osteolytic skeletal metastasis with the largest lesions within the sternum and spine. No acute pathologic fracture. Wall thickening of the distal esophagus. IMPRESSION: 1. No pulmonary emboli identified. 2. Progressively worsened metastatic disease of the chest as described above. 3. Emphysema with prior left upper lobe pulmonary resection. 4. Mild bibasilar opacities suggest atelectasis. 5. Please refer to the CT abdomen and pelvis study of same day for additional findings. CT OF THE ABDOMEN AND PELVIS WITH CONTRAST CLINICAL HISTORY: Neutropenic fever. Altered mental status. Metastatic lung cancer. COMPARISON STUDY: CT of the abdomen August 24, 2021. TECHNIQUE: Following IV administration of 119 mL of Optiray, axial images of the abdomen and pelvis were obtained from the lung bases to the proximal femurs. Images were reviewed in the axial, sagittal, and coronal planes. IV contrast was administered without complication. Automated exposure control was utilized for the study. A dose lowering technique was utilized adhering to the principles of ALARA. FINDINGS: Please note that the chest CT will be reported separately. No pneumatosis, free air or portal venous gas is present. The liver, spleen, right adrenal gland, kidneys and pancreas are unremarkable with exception of a few suspected renal cyst. A 2.4 x 1.5 cm left adrenal nodule has increased in size since CT of August 24, 2021 when it measured 2.2 x 1.3 cm. There is no evidence for a bowel obstruction. Moderate amount of stool within the colon is noted. Left hip arthroplasty is present. Major vasculature is patent. There is no hydronephrosis. A left retroperitoneal metastasis on image 104 of 476 measures 3.7 cm. It previously measured 1.6 cm. An omental implant on image 156 measures 1.1 cm. It previously measured 0.6 cm. Note is again made of a destructive lesion involving S1 and S2 with moderate to severe central canal stenosis. A portion of this mass does not enhance likely reflecting response to radiation therapy. Note is made of a 2 cm enhancing focus within the right L3-L4 neural foramen consistent with malignancy. IMPRESSION: 1. Progression of metastatic disease since CT of August 24, 2021, as described above. This includes an enhancing lesion within the right L3-L4 neural foramen, a left retroperitoneal metastasis and omental implant. 2. Redemonstration of an S1-S2 metastasis which results in moderate to severe central canal stenosis. Hypoenhancing foci within this lesion suggest radiation treatment response. 3. No bowel obstruction. No bowel wall thickening. CT head/brain wo con CLINICAL HISTORY: 61 years-old Female with ams, metastatic ca. Acutely altered mental status TECHNIQUE: Multiple axial CT images of the head were obtained without contrast. A dose lowering technique was utilized adhering to the principles of ALARA. CT DOSE: 537.48 mGy.cm COMPARISON: Brain MRI 09/07/2021 FINDINGS: No acute intracranial hemorrhage, midline shift, intra-axial mass, hydrocephalus, territorial ischemia or abnormal extra-axial collection. Calcified 8 mm meningioma along the left posterior aspect of the cerebral hemisphere on image 17 series 2 is unchanged. Mild white matter hypodensities suggest chronic microvascular ischemic disease. The calvarium is intact. Trace mastoid effusions. The paranasal sinuses are generally clear. Unremarkable soft tissues and orbits. IMPRESSION: No acute intracranial abnormality. XR chest 1V portable HISTORY: Atypical Chest Pain COMPARISON: Chest 09/29/2021. FINDINGS: Stable volume loss, suture material, and left basilar linear densities within the left lung likely representing postoperative change. The heart is stable in size. The right lung is clear. No evidence for pulmonary edema. No pleural effusions. No pneumothorax. Partially visualized postoperative changes within the mid shaft left humerus are again noted. IMPRESSION: No significant change compared to the prior study. No acute process. Stable postoperative changes within the left hemithorax. Medications Administered ER Medications Given: NSS 1L bolus Cefepime 2g IV LR 1L bolus Acetaminophen 1g IV Famotidine 20mg IV Mg sulphate 1g IV x2 K Phos 6 mmol IV Vancomycin 2000mg IV ECG Rate (beats per minute): 136 Rhythm: sinus tachycardia Findings: no acute ischemic change Comparison ECG Date: no prior available Code Status & VTE Plan Code Status Full per patient and wishes VTE Prophylaxis Plan VTE Prophylaxis will be ordered: Yes PG Care Time/CCT Total # of Minutes Spent Total Time Spent with Patient: Total time spent is greater than 50% in coordination of care (as documented) at patient's floor/unit and/or counseling patient: Coding Level of Care Code 77990 Initial Inpt Care Lvl 3 Diagnoses Metastatic lung cancer (metastasis from lung to other site) C34.90 Neutropenic fever D70.9; R50.81 Poor appetite R63.0 Pancytopenia due to chemotherapy D61.810 Hypomagnesemia E83.42 Hypophosphatemia E83.39 Laryngopharyngeal reflux K21.9 Generalized weakness R53.1
[2021-10-14 17:54] LABS: RBC Urine Automated 0-4 /hpf (0-4)
[2021-10-14] MEDS ORDERED: ONDANSETRON 4 MG OD TAB PO PRN (23:08)
[2021-10-15] MEDS: CEFEPIME 2,000 MG in SYRINGE 0 ML IV SCH ×3 (00:01→15:59)
[2021-10-15] MEDS: FAMOTIDINE 40 MG TABLET PO SCH ×2 (00:02→21:44)
[2021-10-15] MEDS: SODIUM CHLORIDE 0.9% 1000ML 1,000 ML IV SCH ×3 (00:02→15:58)
[2021-10-15] MEDS: VANCOMYCIN HCL 1,500 MG in SODIUM CHLORIDE 0.9% 500 ML IV SCH ×2 (03:34→15:59)
[2021-10-15 06:50] LABS: Hematocrit (blood only) 28.7 % (37-47); Mean Corpuscular Hemoglobin 25.6 pg (25-34); Mean Corpuscular Hgb Conc 31.4 g/dL (32-36); Mean Corpuscular Volume 81.8 fL (80-100); Mean Platelet Volume 9.7 fL (7.4-10.4); Platelet Count 118 K/uL (130-400); RDW Coefficient of Variation 16.1 % (11.5-14.5); RDW Standard Deviation 47.7 fL (36.4-46.3); Red Blood Count 3.51 M/uL (4.2-5.4); White Blood Count 1.65 K/uL (4.8-10.8)
[2021-10-15 07:16] LABS: ALC (manual) 0.41 K/uL (1.2-3.4); ANC (manual) 0.71 K/uL (1.4-6.5); Eosinophils # (manual) 0.07 K/uL (0-0.5); Lymphocytes # (manual) 0.41 K/uL (1.2-3.4); Monocytes # (manual) 0.46 K/uL (0.11-0.59); Neutrophils # (manual) 0.71 K/uL (1.4-6.5)
[2021-10-15 07:20] LABS: Albumin Globulin Ratio 0.8 (0.9-2); Albumin Level 2.8 gm/dl (3.4-5.0); BUN Creatinine Ratio 29.4 (10-20); Bilirubin,Total 0.6 mg/dl (0.2-1.0); Calcium 6.9 mg/dl (8.5-10.1); Creatinine Clr Calc Pharmacy 184.9 ml/min; Est GFR (African American) 135.5 ml/min; Est GFR (Non-African American) 116.9 ml/min; Globulin 3.6 gm/dl (2.5-4.0); Magnesium 1.5 mg/dl (1.7-2.4); Phosphorus 1.7 mg/dl (2.5-4.9); Potassium 3.7 mmol/L (3.5-5.1); Total Protein 6.4 gm/dl (6.0-8.3)
--- NOTE | 2021-10-15 08:59 | Hospitalist Progress Note ---
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 Progression of metastatic disease since CT of August 24, 2021, as described above. This includes an enhancing lesion within the right L3-L4 neural foramen, a left retroperitoneal metastasis and omental implant. Redemonstration of an S1-S2 metastasis which results in moderate to severe central canal stenosis. Hypoenhancing foci within this lesion suggest radiation treatment response. (3) Generalized weakness: Plan: Generalized weakness and confusion. feels related to increasing Fentanyl dosing. Toxic encephalopathy Discontinue fentanyl patch use oxycodone as needed (low tolerance to increase this) screen for metabolic sources (4) Poor appetite: Plan: Pre dates her chemotherapy. Denies odynophagia or dysphagia. Concerning this is primarily related to her cancer but possibly also opiate use. consider appetite stimulants Boost drinks Certainly chemo and electrolyte abnormalities may be making this worse acutely (5) Pancytopenia due to chemotherapy: Plan: neutropenic, consider neupogen (6) Hypomagnesemia: Plan: replete (7) Hypophosphatemia: Plan: replete (8) Laryngopharyngeal reflux: Plan: Continue famotidine 40mg PO daily Plan: VTE Prophylaxis - deferred Diet - regular Disposition - admit to med/tele Admission and Anticipated Discharge Date Admission Date: October 14, 2021 Subjective Patient states she feels better than she did when she arrived. She was seen by oncology recommends Neupogen injections to help with her neutropenic state no additional fevers or focal discomfort Review of Systems Review of Systems: Mild distress and fatigue no headache, no visual changes no speech or swallowing issues no discomfort in her mouth or open sores no chest pain, pressure or palpitations no shortness of breath, cough or wheezes no abdominal pain, nausea or vomiting, is having frequent loose stools no dysuria, hematuria or frequency no focal joint pain or swelling no back pain, CVA tenderness or radicular pain no bruising, bleeding or rashes no open sores or other areas of discomfort on her skin no focal signs of weakness or numbness or altered sensation no complaints of anxiety or depression.. Physical Exam Physical Exam: The patient appeared well nourished and normally developed. Vital signs as documented. Head exam is normocephalic atraumatic Oropharynx is without thrush Neck is without JVD, thyromegaly, or carotid bruits. Lungs are clear to auscultation, no focal loss of breath sounds Cardiac exam, Rhythm is regular.. No murmurs, rubs or gallops. Abdominal exam reveals normal bowel sounds, soft non tender, no masses Extremities are nonedematous and both pedal pulses are present Neurologic exam is alert and oriented, no focal loss of strength or sensation Skin is without bruises or rashes Psychologically is without concerns for anxiety or depression.. Results & Data Results & Data ([facility]) Vital Signs (Past 12 Hours) Vital Signs Temp Pulse Pulse Resp BP BP Pulse Ox 10/15/21 07:16 97.5 F L 106 H 20 119/80 97 10/15/21 04:00 98.2 F 108 H 20 104/64 98 10/14/21 22:35 131 H 10/14/21 22:20 97.7 F 126 H 18 127/88 91 10/14/21 22:00 118 H 27 H 102/63 99 10/14/21 21:30 112 H 25 H 104/73 98 10/14/21 21:01 117 H 25 H 100 10/14/21 21:00 114 H 22 91 PG Care Time/CCT Total # of Minutes Spent Total Time Spent with Patient: Total time spent is greater than 50% in coordination of care (as documented) at patient's floor/unit and/or counseling patient: Coding Level of Care Code 23614 Subseq Hosp Care Lvl 2 Diagnoses Neutropenic fever D70.9; R50.81 Metastatic lung cancer (metastasis from lung to other site) C34.90 Laterality: unspecified laterality Generalized weakness R53.1 Poor appetite R63.0 Pancytopenia due to chemotherapy D61.810 Hypomagnesemia E83.42 Hypophosphatemia E83.39 Laryngopharyngeal reflux K21.9 (1) Metastatic lung cancer (metastasis from lung to other site) Laterality: unspecified laterality Qualified Code(s): C34.90 - Malignant neoplasm of unspecified part of unspecified bronchus or lung
[2021-10-15] MEDS: ROSUVASTATIN CALCIUM 5 MG TAB PO SCH (09:08)
[2021-10-15] MEDS: VENLAFAXINE HCL XR 75 MG CAPXR PO SCH (09:08)
[2021-10-15] MEDS: POTASSIUM CHLORIDE CRTAB 20 MEQ TABCR PO SCH (09:08)
--- NOTE | 2021-10-15 10:40 | Consultation Report ---
MEDICAL ONCOLOGY CONSULTATION DATE OF SERVICE: 10/15/2021. REASON FOR CONSULTATION: Metastatic non-small cell lung cancer, neutropenic fever. HISTORY OF PRESENT ILLNESS: Galina is a very pleasant, somewhat unfortunate 61-year-old female, well known to [facility] with stage IV non-small cell lung cancer involving the bony skeleton. She is now follo wed by Dr. Velasquez and recently started carboplatin, paclitaxel, and pembrolizumab q.3 weeks. Initial dose was administered on 10/05. She presents to the Emergency Room with low-grade fever, asthenia, d ysphagia/sore throat and anorexia. Apparently, she has been battling an upper respiratory infection, particularly sinusitis and was seen in the Emergency Room on 09/29. The patient recently underwent an ORIF of left humerus, which turned out to be metastatic disease at the [facility] in m id 08/2021. CT scan of the chest, abdomen and pelvis on 08/24 revealed a 5 cm centrally necrotic les ion in the anterior mediastinum, enlarged left superior mediastinal lymph node, 2 pulmonary nodules w ithin the left lung and osseous metastatic disease involving the thoracic spine, sacrum and left dist al humerus; manubrium, first rib, mid thoracic and sacral spine all involved. Brain MRI was performe d on 09/07 revealing a left occipital meningioma with no evidence of brain metastases. The patient s ubsequently developed a pathologic fracture of the left humerus, underwent ORIF of the left supracond yle distal humeral shaft fracture on 09/10 at the [facility]. Pathology revealed metasta tic carcinoma with squamous features, likely lung primary. 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 The patient received 4 cycles of kasaan doub lets, cisplatin and gemcitabine, given on day 1 and day 8 every 21 days in 2016. Not surprisingly, s he is approximately 9 days out from initial chemotherapy and is neutropenic and mildly thrombocytopen ic. Bartlett cultures were drawn and the patient was placed on broad-spectrum antibiotics. She did not r eceive granulocyte colony stimulating growth factor post-chemotherapy. 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 PAST SURGICAL HISTORY: Status post left upper lobectomy in 12/2016, ORIF of left humerus, tonsillect eliana/adenoidectomy, left hip arthroplasty in 01/2018. MEDICATIONS: Famotidine 40 mg p.o. daily, dronabinol 5 mg p.o. a.c., fentanyl 25 mcg per hour patch topically q.72 hours, oxycodone 10 mg p.o. q.4 hours p.r.n., Effexor 75 mg p.o. daily, rosuvastatin 5 mg p.o. daily, Zofran 4 mg p.o. q.6 hours p.r.n., Ativan 1 mg sublingual q.6 hours p.r.n. ALLERGIES: No known drug allergies. FAMILY HISTORY: The patient's mother suffered from breast cancer. Grandmother suffered from diabete s mellitus. She also has a brother with an undisclosed cancer. SOCIAL HISTORY: The patient has a 56-wmsv-vthe history. She also consumes alcohol, mainly beer duri ng social occasions. She is . She is retired. REVIEW OF SYSTEMS: CONSTITUTIONAL: As per HPI, most notably for asthenia, generalized weakness, low-grade fever, sore t hroat. SKIN: No rashes or lesions. No history of dermatoses. HEENT: Denies headaches, lightheadedness or dizziness. No acute visual deficits. She has hearing l oss, potentially from cisplatin toxicity. Positive for sore throat. Positive for sinus congestion at tributable to sinusitis. HEART: No angina or palpitations. PULMONARY: She is not acutely short of breath, dyspneic or orthopneic. No cough or hemoptysis. GASTROINTESTINAL: Negative for abdominal pain. Positive for intermittent nausea. No constipation o r diarrhea reported. GENITOURINARY: No hematuria, dysuria, or urinary incontinence. PSYCHIATRIC: Positive for anxiety and depression. ENDOCRINE: Negative for diabetes or thyroid disease. NEUROLOGIC: Negative for seizure, stroke or migraine headaches. MUSCULOSKELETAL: Positive for pathologic fracture of left distal humerus, status post ORIF. HEMATOLOGIC: Positive for pancytopenia attributable to chemotherapeutic effect. PHYSICAL EXAMINATION: GENERAL: Very pleasant 61-year-old female, awake, alert, appropriate, in no acute distress. VITAL SIGNS: Temperature 36.4, pulse 106, respiratory rate 20, blood pressure 119/80. SKIN: Warm, dry, noncyanotic without petechia, rash or ecchymosis. HEENT: Atraumatic, normocephalic. Eyes: PERRLA. EOMI. Sclerae are nonicteric. Nasal turbinates a re open. Positive for rhinorrhea. Throat, mild erythema diffusely. No evidence of thrush otherwise. NECK: Supple without JVD or thyromegaly. HEART: Tachy, but regular. LUNGS: Clear to auscultation bilaterally. ABDOMEN: Soft, nontender, nondistended, without palpable hepatosplenomegaly. EXTREMITIES: Musculoskeletal strength and pulses are equal in all 4 quadrants. No clubbing, cyanosi s or edema. NEUROLOGIC: She is awake, alert and oriented x3. LABORATORY DATA: WBC count 1650, hemoglobin 9, platelet count 118,000, absolute neutrophil count 710 . Sodium 131, potassium 3.7, chloride 102, carbon dioxide 19, creatinine 0.34, BUN 10, AST 61, ALT 1 01, alkaline phosphatase 159, albumin 2.8. CT scan of the abdomen and pelvis: Progression of metastatic disease on CT in early 08/2021, enhancin g lesion within the right L3-L4, left retroperitoneal metastasis and omental implant noticed. Redemo nstration of S1-S2 metastasis, which results in moderate to severe central canal stenosis. CTA of the chest negative for pulmonary emboli. Progressively worsening metastatic disease of the ch est as described above, emphysema, prior left upper lobe pulmonary resection. IMPRESSION: 1. Neutropenic fever. 2. Metastatic non-small cell lung cancer. 3. Pancytopenia attributable to chemotherapeutic effect. 4. Hypoalbuminemia. 5. Elevated liver transaminases. 6. Status post open reduction and internal fixation of left distal humerus/pathologic fracture. PLAN: Galina is a very pleasant, unfortunate 61-year-old female well known to [facility], originally my pat iekate and now follows with Dr. Velasquez. The patient had done relatively well status post lobectomy and adjuvant chemotherapy in 2017. Unfortunately, but not surprisingly has developed metastatic disease involving the areas as described in the HPI. Most prominently, she suffered a pathologic fracture of the left distal humerus, which required ORIF. She now has compromising lesions in the lumbar and sa cral spine that probably should be addressed and we will ask radiation oncology to provide palliative XRT to these areas. Galina appropriately was started on carboplatin, paclitaxel, and pembrolizumab q.3 weeks, receiving initial course on 10/05. She did not receive granulocyte colony stimulating scott wth factor. Therefore, I recommend Neupogen 480 mcg subQ over the next 3 days on a daily basis. Pro ceed with rehabilitation for her arm fracture. The patient needs to concentrate on improving her p.o . intake and manage nausea and pain as appropriate. I spoke to Emilia Light, our physician hermes fang who manages Galina and will arrange to see Galina in followup post-discharge. Await blood and u rine culture results and proceed with appropriate antimicrobials thereafter. Nothing further to add at this time. We will continue to follow her periodically during the hospitalization. Job ID: [id number]
--- NOTE | 2021-10-15 13:34 | XRay Report ---
XR humerus LT 2V HISTORY: 61 years-old Female s/p ORIF status post ORIF of the left humerus COMPARISON: Left humerus radiographs 09/10/2021 TECHNIQUE: 2 views of the left humerus FINDINGS: Fixated subacute pathologic fracture of the mid to distal diaphyseal humerus with 4.9 cm lytic destru ctive bone lesion redemonstrated. The degree of bony lytic destruction has progressed. Radiodense mat erial within the adjacent soft tissues surrounding the fracture is likely postoperative. The hardware appears intact. Minimal persistent angulation with overall improved alignment compared to the preope rative studies. IMPRESSION: Fixated subacute left humeral diaphyseal fracture with underlying lytic metastatic bone l esion redemonstrated. The degree of bony destruction has progressed from prior. ACT 112: Negative or not required by law. The above report was generated using voice recognition software. It may contain grammatical, syntax o r spelling errors. Electronically signed by: Steve Clarke M.D. 10/15/2021 1:32 PM
--- NOTE | 2021-10-15 13:59 | Orthopedic Consultation ---
Date of Consultation October 15, 2021 Assessment & Plan (1) Humerus fracture: Sutures were removed from the patient's left upper extremity. She is to work on range of motion. Patient is to be nonweightbearing on the left upper extremity at the recommendation of her surgeon. Pain control with p.o. medication. Patient will follow up in [place] with Dr. Melgar as scheduled. History of Present Illness Reason for Consultation: Left humerus fracture (status post open reduction internal fixation) Requesting Physician: Dr. Jacobo Attending Physician: Jacob Karimi MD History of Present Illness This 51-year-old female was seen this morning for follow-up of a left humerus fracture that was fixed by Dr. Melgar in [place] on September 102021. His PA contacted me yesterday and asked that I would see the patient, remove her dressing, sutures and order an x-ray of her left humerus. Patient states her elbow feels fine today. She states that the nurses already remove the outer dressing but no one had removed the sutures. She denies any numbness or tingling in the left upper extremity. She is still nonweightbearing due to the surgery. Currently she denies chest pain, shortness of breath, fever, chills, sweats, lethargy or numbness or tingling in her left upper extremity. Allergies Allergy/AdvReac Type Severity Reaction Status Date / Time No Known Allergies Allergy Verified 10/14/21 15:35 Home Medications Medication Instructions Recorded Confirmed Type hydrocodone 10 mg-acetaminophen 1 tab PO DIRECTED PRN tab 06/25/19 10/14/21 History 325 mg tablet lorazepam 1 mg tablet (Ativan) 1 mg SUBLINGUAL Q6H PRN #12 tab 08/25/21 10/14/21 Rx ondansetron 4 mg disintegrating 4 mg PO Q6H PRN #12 tab 08/25/21 10/14/21 Rx tablet rosuvastatin 5 mg tablet 5 mg PO DAILY 08/25/21 10/14/21 History venlafaxine 75 mg capsule,extended 75 mg PO DAILY 08/25/21 10/14/21 History release 24 hr oxycodone 5 mg tablet 10 mg PO Q4H PRN tab 09/23/21 10/14/21 History fentanyl 25 mcg/hr transdermal 1 patch TRANSDERMAL Q72H 10/04/21 10/14/21 History patch potassium chloride 20 mEq 20 meq PO DAILY 10/04/21 10/14/21 History tablet,extended release dronabinol 5 mg capsule 5 mg PO AC 10/14/21 10/14/21 History famotidine 40 mg tablet 40 mg PO QPM 10/14/21 10/14/21 History Patient History Medical History Allergic rhinitis, unspecified Anxiety Arthritis Bone lesion Degenerative joint disease of left hip Depression Esophagitis, unspecified Generalized anxiety disorder GERD (gastroesophageal reflux disease) Hyperlipidemia Laryngopharyngeal reflux Low back pain Lung cancer Lung nodule, solitary Non-small cell lung cancer Nontoxic multinodular goiter Ototoxic hearing loss of both ears Pain in left hip Personal history of colonic polyps Sensorineural hearing loss (SNHL) of both ears Tobacco abuse counseling Surgical History History of lobectomy of lung Left upper lobectomy 12/30/16 History of surgery on arm (~2021) Left humorous bone put together (broke bone due to lesion) History of tonsillectomy and adenoidectomy Hx of total hip arthroplasty Left hip January 2018 Family History Mother Breast cancer Grandmother Diabetes Brother Cancer Social History Smoking Status: Smoker, status unknown Tobacco Type: Cigarettes Years Smoked: 30; Second Hand Exposure: Yes; Hx Alcohol Use: Yes Alcohol type: beer Hx Substance Use: No Preferred Language: Libyan Communication Ability: Effective Banking Supervisor Required: No Beliefs That Will Affect Care: None marital status: Current Living Situation: Spouse current occupational status: retired How many Children do You have: 3 Other Information That Helps Us Care for You: No Feels Safe at Home: Yes Safety Concerns: Feels Safe At This Time during the past year weight has: decreased > 10 lbs Assistive Devices: Glasses Review of Systems Review of Systems: All systems reviewed & are unremarkable except as noted in Subjective Physical Exam Physical Exam: Left upper extremity: Sutures were removed from the patient's left upper extremity. Surgical incision site is healed completely with no palpable fluctuance or discharge. Patient is able to reach terminal flexion- extension her elbow without pain. She has full range of motion of her shoulder. Appropriate dexterity of her fingers. She has no pain with any wrist range of motion. She is neurovascularly intact left upper extremity. Results & Data ([facility]) Vital Signs (Past 12 Hours) Vital Signs Temp Pulse Pulse Resp BP Pulse Ox 10/15/21 12:02 102 H 10/15/21 11:22 36.5 C 104 H 18 110/69 97 10/15/21 07:16 36.4 C L 106 H 20 119/80 97 10/15/21 04:00 36.8 C 108 H 20 104/64 98 Diagnostic Findings Laboratory Results WBC 1.65 K/uL (4.8-10.8) L 10/15/21 06:18 RBC 3.51 M/uL (4.2-5.4) L 10/15/21 06:18 Hgb 9.0 g/dL (12.0-16.0) L 10/15/21 06:18 Hct 28.7 % (37-47) L 10/15/21 06:18 MCV 81.8 fL (80-100) 10/15/21 06:18 MCH 25.6 pg (25-34) 10/15/21 06:18 MCHC 31.4 g/dL (32-36) L 10/15/21 06:18 RDW Std Deviation 47.7 fL (36.4-46.3) H 10/15/21 06:18 RDW Coeff of Eleni 16.1 % (11.5-14.5) H 10/15/21 06:18 Plt Count 118 K/uL (130-400) L 10/15/21 06:18 MPV 9.7 fL (7.4-10.4) 10/15/21 06:18 Neutrophils % (Manual) 43.0 % 10/15/21 06:18 Lymphocytes % (Manual) 25.0 % 10/15/21 06:18 Monocytes % (Manual) 28.0 % 10/15/21 06:18 Eosinophils % (Manual) 4.0 % 10/15/21 06:18 Neutrophils # (Manual) 0.71 K/uL (1.4-6.5) L 10/15/21 06:18 Total Absolute Neuts 0.71 K/uL (1.4-6.5) L* 10/15/21 06:18 Lymphocytes # (Manual) 0.41 K/uL (1.2-3.4) L 10/15/21 06:18 Total Abs Lymphocytes 0.41 K/uL (1.2-3.4) L 10/15/21 06:18 Monocytes # (Manual) 0.46 K/uL (0.11-0.59) 10/15/21 06:18 Eosinophils # (Manual) 0.07 K/uL (0-0.5) 10/15/21 06:18 PT 12.4 Seconds (9.0-12.0) H 10/14/21 14:00 INR 1.2 (0.9-1.1) H 10/14/21 14:00 Sodium 131 mmol/L (136-145) L 10/15/21 06:18 Potassium 3.7 mmol/L (3.5-5.1) 10/15/21 06:18 Chloride 102 mmol/L (98-107) 10/15/21 06:18 Carbon Dioxide 19 mmol/L (21-32) L 10/15/21 06:18 Anion Gap 10 (3-11) 10/15/21 06:18 BUN 10 mg/dl (6-23) 10/15/21 06:18 Creatinine 0.34 mg/dl (0.6-1.2) L 10/15/21 06:18 Est Cr Clr Drug Dosing 184.9 ml/min 10/15/21 06:18 Est GFR ( Amer) 135.5 ml/min 10/15/21 06:18 Est GFR (Non-Af Amer) 116.9 ml/min 10/15/21 06:18 BUN/Creatinine Ratio 29.4 (10-20) H 10/15/21 06:18 Glucose 87 mg/dl (70-99(Fasting)) 10/15/21 06:18 Lactate 1.4 mmol/L (0.4-2.0) 10/14/21 14:53 Calcium 6.9 mg/dl (8.5-10.1) L 10/15/21 06:18 Phosphorus 1.7 mg/dl (2.5-4.9) L 10/15/21 06:18 Magnesium 1.5 mg/dl (1.7-2.4) L 10/15/21 06:18 Total Bilirubin 0.6 mg/dl (0.2-1.0) 10/15/21 06:18 AST 61 U/L (13-39) H 10/15/21 06:18 ALT 101 U/L (7-52) H 10/15/21 06:18 Alkaline Phosphatase 159 U/L (34-104) H 10/15/21 06:18 Troponin I 0.03 ng/ml (0-0.04) 10/14/21 14:00 B-Natriuretic Peptide 62 pg/ml (0-100) 10/14/21 14:00 Total Protein 6.4 gm/dl (6.0-8.3) 10/15/21 06:18 Albumin 2.8 gm/dl (3.4-5.0) L 10/15/21 06:18 Globulin 3.6 gm/dl (2.5-4.0) 10/15/21 06:18 Albumin/Globulin Ratio 0.8 (0.9-2) L 10/15/21 06:18 Lipase 6 U/L (11-82) L 10/14/21 14:00 Procalcitonin 0.65 ng/ml (0-0.5) H 10/14/21 14:43 Urine Color Dark Yellow 10/14/21 17:00 Urine Appearance Cloudy (Clear) A 10/14/21 17:00 Urine pH 6.0 (4.5-7.5) 10/14/21 17:00 Ur Specific [place] 1.023 (1.000-1.030) 10/14/21 17:00 Urine Protein 2+ (Negative) H 10/14/21 17:00 Urine Glucose (UA) Negative (Negative) 10/14/21 17:00 Urine Ketones Negative (Negative) 10/14/21 17:00 Urine Blood Negative (Negative) 10/14/21 17:00 Urine Nitrite Negative (Negative) 10/14/21 17:00 Urine Bilirubin Negative (Negative) 10/14/21 17:00 Urine Urobilinogen Negative (Negative) 10/14/21 17:00 Ur Leukocyte Esterase Trace (Negative) H 10/14/21 17:00 Urine WBC (Auto) 10-30 /hpf (0-5) H 10/14/21 17:00 Urine RBC (Auto) 0-4 /hpf (0-4) 10/14/21 17:00 U Hyaline Cast (Auto) 5-10 /lpf (0-5) H 10/14/21 17:00 U Epithel Cells (Auto) >30 /lpf (0-5) H 10/14/21 17:00 Urine Bacteria (Auto) Negative (Negative) 10/14/21 17:00 Urine Yeast Budding (None Prsent) A 10/14/21 17:00 SARS-CoV-2, RNA, NAAT NEGATIVE (NEGATIVE) 10/14/21 18:43 Impressions Chest X-Ray 10/14/21 13:27 XR chest 1V portable HISTORY: Atypical Chest Pain COMPARISON: Chest 09/29/2021. FINDINGS: Stable volume loss, suture material, and left basilar linear densities within the left lung likely representing postoperative change. The heart is stable in size. The right lung is clear. No evidence for pulmonary edema. No pleural effusions. No pneumothorax. Partially visualized postoperative changes within the mid shaft left humerus are again noted. IMPRESSION: No significant change compared to the prior study. No acute process. Stable postoperative changes within the left hemithorax. ACT 112: Negative or not required by law. Electronically signed by: Christoph Harden M.D. 10/14/2021 1:50 PM Abdomen/Pelvis CT 10/14/21 14:24 CT OF THE ABDOMEN AND PELVIS WITH CONTRAST CLINICAL HISTORY: Neutropenic fever. Altered mental status. Metastatic lung cancer. COMPARISON STUDY: CT of the abdomen August 24, 2021. TECHNIQUE: Following IV administration of 119 mL of Optiray, axial images of the abdomen and pelvis were obtained from the lung bases to the proximal femurs. Images were reviewed in the axial, sagittal, and coronal planes. IV contrast was administered without complication. Automated exposure control was utilized for the study. A dose lowering technique was utilized adhering to the principles of ALARA. FINDINGS: Please note that the chest CT will be reported separately. No pneumatosis, free air or portal venous gas is present. The liver, spleen, right adrenal gland, kidneys and pancreas are unremarkable with exception of a few suspected renal cyst. A 2.4 x 1.5 cm left adrenal nodule has increased in size since CT of August 24, 2021 when it measured 2.2 x 1.3 cm. There is no evidence for a bowel obstruction. Moderate amount of stool within the colon is noted. Left hip arthroplasty is present. Major vasculature is patent. There is no hydronephrosis. A left retroperitoneal metastasis on image 104 of 476 measures 3.7 cm. It previously measured 1.6 cm. An omental implant on image 156 measures 1.1 cm. It previously measured 0.6 cm. Note is again made of a destructive lesion involving S1 and S2 with moderate to severe central canal stenosis. A portion of this mass does not enhance likely reflecting response to radiation therapy. Note is made of a 2 cm enhancing focus within the right L3-L4 neural foramen consistent with malignancy. IMPRESSION: 1. Progression of metastatic disease since CT of August 24, 2021, as described above. This includes an enhancing lesion within the right L3-L4 neural foramen, a left retroperitoneal metastasis and omental implant. 2. Redemonstration of an S1-S2 metastasis which results in moderate to severe central canal stenosis. Hypoenhancing foci within this lesion suggest radiation treatment response. 3. No bowel obstruction. No bowel wall thickening. ACT 112: Negative or not required by law. Electronically signed by: Harshad Beasley M.D. 10/14/2021 4:57 PM Chest CTA 10/14/21 14:24 CT angio chest PE protocol CT DOSE: 1444.00 mGycm HISTORY: 61 years-old Female with metastatic ca, tachycardia, PE. Acute tachycardia with shortness of breath and fever. Known metastatic disease TECHNIQUE: Multiple CTA images of the chest were obtained after the intravenous administration of 119 ml Optiray. Coronal and sagittal MIPS were obtained from the axial data set and were submitted for review. All measurements were obtained according to NASCET criteria. A dose lowering technique was utilized adhering to the principles of ALARA. COMPARISON: CT abdomen and pelvis of same day, CT chest and abdomen 08/24/2021 FINDINGS: CTA: Mild to moderate cardiomegaly. Small pericardial effusion. Atherosclerosis of the thoracic aorta without aneurysm or dissection. Unremarkable pulmonary pilar ry. No pulmonary emboli are identified. Respiratory motion artifact limits evaluation of the segmental and subsegmental branches. CT CHEST: No thyroid nodule. Prominent right-sided clavicular lymph node redemonstrated. Pathologically enlarged lymph nodes within the superior mediastinum redemonstrated measuring up to 2.0 x 1.7 cm on image 240 which have progressed from prior. Large mass/conglomerate masses of the anterior mediastinum measuring up to 5.7 x 2.5 cm on image 184 has progressed from prior. This extends into the adjacent chest wall. Edema with prior left upper lobe pulmonary resection. 7 mm solid nodule of the left lung on image 169 is unchanged. 1.4 x 1.4 center nodule of the left lung base is stable with adjacent linear consolidation. Mild right basilar atelectasis. The central airways are patent. Increased size of a 3.6 cm left chest wall metastatic lesion on image 1. Subcutaneous 9 mm soft tissue nodule of the left posterior chest wall on image 96 previously measured 7 mm. Progressive osteolytic skeletal metastasis with the largest lesions within the sternum and spine. No acute pathologic fracture. Wall thickening of the distal esophagus. IMPRESSION: 1. No pulmonary emboli identified. 2. Progressively worsened metastatic disease of the chest as described above. 3. Emphysema with prior left upper lobe pulmonary resection. 4. Mild bibasilar opacities suggest atelectasis. 5. Please refer to the CT abdomen and pelvis study of same day for additional findings. ACT 112: Negative or not required by law. The above report was generated using voice recognition software. It may contain grammatical, syntax or spelling errors. Electronically signed by: Steve Clarke M.D. 10/14/2021 5:[address] 10/14/21 14:24 CT head/brain wo con CLINICAL HISTORY: 61 years-old Female with ams, metastatic ca. Acutely altered mental status TECHNIQUE: Multiple axial CT images of the head were obtained without contrast. A dose lowering technique was utilized adhering to the principles of ALARA. CT DOSE: 537.48 mGy.cm COMPARISON: Brain MRI 09/07/2021 FINDINGS: No acute intracranial hemorrhage, midline shift, intra-axial mass, hydrocephalus, territorial ischemia or abnormal extra-axial collection. Calcified 8 mm meningioma along the left posterior aspect of the cerebral hemisphere on image 17 series 2 is unchanged. Mild white matter hypodensities suggest chronic microvascular ischemic disease. The calvarium is intact. Trace mastoid effusions. The paranasal sinuses are generally clear. Unremarkable soft tissues and orbits. IMPRESSION: No acute intracranial abnormality. ACT 112: Negative or not required by law. The above report was generated using voice recognition software. It may contain grammatical, syntax or spelling errors. Electronically signed by: Steve Clarke M.D. 10/14/2021 3:21 PM Humerus X-Ray 10/15/21 13:02 XR humerus LT 2V HISTORY: 61 years-old Female s/p ORIF status post ORIF of the left humerus COMPARISON: Left humerus radiographs 09/10/2021 TECHNIQUE: 2 views of the left humerus FINDINGS: Fixated subacute pathologic fracture of the mid to distal diaphyseal humerus with 4.9 cm lytic destructive bone lesion redemonstrated. The degree of bony lytic destruction has progressed. Radiodense material within the adjacent soft tissues surrounding the fracture is likely postoperative. The hardware appears intact. Minimal persistent angulation with overall improved alignment compared to the preoperative studies. IMPRESSION: Fixated subacute left humeral diaphyseal fracture with underlying lytic metastatic bone lesion redemonstrated. The degree of bony destruction has progressed from prior. ACT 112: Negative or not required by law. The above report was generated using voice recognition software. It may contain grammatical, syntax or spelling errors. Electronically signed by: Steve Clarke M.D. 10/15/2021 1:32 PM
[2021-10-15] MEDS ORDERED: FILGRASTIM 480 MCG/1.6 ML VIAL SC ONE (15:00)
[2021-10-15] MEDS: oxyCODONE HCL IR 5 MG TAB (IMMEDIATE RELEASE) PO PRN (17:52)
[2021-10-15] MEDS: NYSTATIN SUSP 500,000 U/5 ML UDC PO SCH (20:58)
[2021-10-16] MEDS: CEFEPIME 2,000 MG in SYRINGE 0 ML IV SCH ×2 (01:00→07:47)
[2021-10-16] MEDS: SODIUM CHLORIDE 0.9% 1000ML 1,000 ML IV SCH ×3 (01:18→16:13)
[2021-10-16] MEDS: VANCOMYCIN HCL 1,500 MG in SODIUM CHLORIDE 0.9% 500 ML IV SCH (05:23)
[2021-10-16] MEDS: oxyCODONE HCL IR 5 MG TAB (IMMEDIATE RELEASE) PO PRN ×2 (06:49→15:16)
[2021-10-16] MEDS: ROSUVASTATIN CALCIUM 5 MG TAB PO SCH (08:02)
[2021-10-16] MEDS: VENLAFAXINE HCL XR 75 MG CAPXR PO SCH (08:02)
[2021-10-16] MEDS: NYSTATIN SUSP 500,000 U/5 ML UDC PO SCH ×4 (08:02→20:35)
[2021-10-16] MEDS: POTASSIUM CHLORIDE CRTAB 20 MEQ TABCR PO SCH (08:02)
[2021-10-16 09:31] LABS: Hematocrit (blood only) 30.2 % (37-47); Hemoglobin 9.4 g/dL (12.0-16.0); Mean Corpuscular Hemoglobin 25.5 pg (25-34); Mean Corpuscular Hgb Conc 31.1 g/dL (32-36); Mean Corpuscular Volume 81.8 fL (80-100); Mean Platelet Volume 9.5 fL (7.4-10.4); Platelet Count 115 K/uL (130-400); RDW Coefficient of Variation 15.8 % (11.5-14.5); Red Blood Count 3.69 M/uL (4.2-5.4); White Blood Count 7.22 K/uL (4.8-10.8)
[2021-10-16 09:54] LABS: Basophils # (auto) 0.01 K/uL (0-0.2); Basophils % (auto) 0.1 %; Eosinophils # (auto) 0.04 K/uL (0-0.5); Eosinophils % (auto) 0.6 %; Immature Granulocytes # (auto) 0.49 K/uL (0.00-0.02); Immature Granulocytes % (auto) 6.8 %; Lymphocytes # (auto) 0.57 K/uL (1.2-3.4); Lymphocytes % (auto) 7.9 %; Monocytes # (auto) 0.97 K/uL (0.11-0.59); Monocytes % (auto) 13.4 %; Neutrophils # (auto) 5.14 K/uL (1.4-6.5); Neutrophils % (auto) 71.2 %
[2021-10-16 10:01] LABS: Albumin Globulin Ratio 0.8 (0.9-2); Albumin Level 2.7 gm/dl (3.4-5.0); Bilirubin,Total 0.5 mg/dl (0.2-1.0); Calcium 6.1 mg/dl (8.5-10.1); Creatinine Clr Calc Pharmacy 232.3 ml/min; Est GFR (Non-African American) 129.4 ml/min; Globulin 3.2 gm/dl (2.5-4.0); Potassium 2.7 mmol/L (3.5-5.1); Total Protein 5.9 gm/dl (6.0-8.3)
[2021-10-16] MEDS ORDERED: POTASSIUM CHLORIDE 10 MEQ / 100ML WTR IV STA (12:40)
[2021-10-16] MEDS ORDERED: POTASSIUM CHLORIDE CRTAB 20 MEQ TABCR PO STA (12:40)
[2021-10-16] MEDS ORDERED: oxyCODONE HCL IR 5 MG TAB (IMMEDIATE RELEASE) PO PRN (12:43)
[2021-10-16] MEDS: POTASSIUM CHLORIDE / WTR 10 MEQ/100 ML PLCT IV SCH ×3 (13:51→15:54)
[2021-10-16] MEDS: LORazepam 1 MG TAB SL PRN (15:56)
--- NOTE | 2021-10-16 17:53 | Hospitalist Progress Note ---
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 Progression of metastatic disease since CT of August 24, 2021, as described above. This includes an enhancing lesion within the right L3-L4 neural foramen, a left retroperitoneal metastasis and omental implant. Redemonstration of an S1-S2 metastasis which results in moderate to severe central canal stenosis. Hypoenhancing foci within this lesion suggest radiation treatment response. (3) Generalized weakness: Plan: Generalized weakness and confusion. feels related to increasing Fentanyl dosing. It was stopped along with her Marinol. Hopefully her mental status will improve CT scan on presentation does not show any signs of mets however th is was a noncontrast study Toxic encephalopathy Discontinue fentanyl patch use oxycodone as needed (low tolerance to increase this) (4) Poor appetite: Plan: Pre dates her chemotherapy. Denies odynophagia or dysphagia. Concerning this is primarily related to her cancer but possibly also opiate use. Boost drinks Certainly chemo and electrolyte abnormalities may be making this worse acutely (5) Pancytopenia due to chemotherapy: Plan: neutropenic, consider neupogen (6) Hypomagnesemia: Plan: replete (7) Hypophosphatemia: Plan: replete (8) Laryngopharyngeal reflux: Plan: Continue famotidine 40mg PO daily Plan: VTE Prophylaxis - deferred Diet - regular Disposition - admit to med/tele Admission and Anticipated Discharge Date Admission Date: October 14, 2021 Subjective Patient has mild confusion and persistent electrolyte abnormalities she is improving with her mentation but not quite completely clear mentally this still may be some effects of Marinol which will be discontinued and as her fentanyl transdermal continues to wear off. She does not complain of any focal systemic pain at this time Review of Systems Review of Systems: Mild distress and fatigue no headache, no visual changes no speech or swallowing issues no discomfort in her mouth perhaps some scant thrush in the posterior pharynx no chest pain, pressure or palpitations no shortness of breath, cough or wheezes no abdominal pain, nausea or vomiting, is having frequent loose stools no dysuria, hematuria or frequency no focal joint pain or swelling no back pain, CVA tenderness or radicular pain no bruising, bleeding or rashes no open sores or other areas of discomfort on her skin no focal signs of weakness or numbness or altered sensation no complaints of anxiety or depression.. Physical Exam Physical Exam: The patient appeared well nourished and normally developed. Vital signs as documented. Head exam is normocephalic atraumatic Oropharynx is with thrush versus food in her posterior pharynx starting nystatin Neck is without JVD, thyromegaly, or carotid bruits. Lungs are clear to auscultation, no focal loss of breath sounds Cardiac exam, Rhythm is regular.. No murmurs, rubs or gallops. Abdominal exam reveals normal bowel sounds, soft non tender, no masses Extremities are nonedematous and both pedal pulses are present Neurologic exam is alert and oriented x3 no focal loss of strength or sensation Skin is without bruises or rashes Psychologically is without concerns for anxiety or depression.. Results & Data Results & Data ([facility]) Vital Signs (Past 12 Hours) Vital Signs Temp Pulse Pulse Resp BP Pulse Ox 10/16/21 15:26 98.2 F 107 H 20 112/78 98 10/16/21 12:59 97.9 F 103 H 20 112/67 95 10/16/21 07:30 108 H 10/16/21 06:39 97.5 F L 105 H 18 113/75 90 PG Care Time/CCT Total # of Minutes Spent Total Time Spent with Patient: Total time spent is greater than 50% in coordination of care (as documented) at patient's floor/unit and/or counseling patient: Coding Level of Care Code 62443 Subseq Hosp Care Lvl 2 Diagnoses Neutropenic fever D70.9; R50.81 Metastatic lung cancer (metastasis from lung to other site) C34.90 Laterality: unspecified laterality Generalized weakness R53.1 Poor appetite R63.0 Pancytopenia due to chemotherapy D61.810 Hypomagnesemia E83.42 Hypophosphatemia E83.39 Laryngopharyngeal reflux K21.9 (1) Metastatic lung cancer (metastasis from lung to other site) Laterality: unspecified laterality Qualified Code(s): C34.90 - Malignant neoplasm of unspecified part of unspecified bronchus or lung
[2021-10-16] MEDS ORDERED: ACETAMINOPHEN 1,000 MG/100 ML VIAL IV STA (18:13)
[2021-10-16 19:21] LABS: Calcium 6.2 mg/dl (8.5-10.1); Creatinine Clr Calc Pharmacy 232.3 ml/min; Est GFR (Non-African American) 129.4 ml/min; Potassium 2.9 mmol/L (3.5-5.1)
[2021-10-16] MEDS: FAMOTIDINE 40 MG TABLET PO SCH (20:34)
[2021-10-17] MEDS: SODIUM CHLORIDE 0.9% 1000ML 1,000 ML IV SCH ×2 (00:16→08:24)
[2021-10-17] MEDS: oxyCODONE HCL IR 5 MG TAB (IMMEDIATE RELEASE) PO PRN ×3 (03:20→14:54)
[2021-10-17] MEDS: LORazepam 1 MG TAB SL PRN ×2 (03:20→10:50)
[2021-10-17 08:25] VITALS: O2SAT 97
[2021-10-17 09:00] LABS: Hemoglobin 8.8 g/dL (12.0-16.0); Mean Corpuscular Hemoglobin 25.1 pg (25-34); Mean Corpuscular Hgb Conc 31.4 g/dL (32-36); Mean Corpuscular Volume 79.8 fL (80-100); Mean Platelet Volume 9.9 fL (7.4-10.4); Platelet Count 113 K/uL (130-400); RDW Standard Deviation 46.7 fL (36.4-46.3); Red Blood Count 3.51 M/uL (4.2-5.4); White Blood Count 9.53 K/uL (4.8-10.8)
[2021-10-17 09:23] LABS: Albumin Globulin Ratio 0.9 (0.9-2); Albumin Level 2.7 gm/dl (3.4-5.0); BUN Creatinine Ratio 10.3 (10-20); Bilirubin,Total 0.4 mg/dl (0.2-1.0); Calcium 5.8 mg/dl (8.5-10.1); Creatinine Clr Calc Pharmacy 200.3 ml/min; Est GFR (African American) 142.8 ml/min; Est GFR (Non-African American) 123.2 ml/min; Total Protein 5.7 gm/dl (6.0-8.3)
[2021-10-17 09:25] LABS: Basophils # (auto) 0.03 K/uL (0-0.2); Basophils % (auto) 0.3 %; Eosinophils # (auto) 0.04 K/uL (0-0.5); Eosinophils % (auto) 0.4 %; Immature Granulocytes % (auto) 2.1 %; Lymphocytes # (auto) 0.93 K/uL (1.2-3.4); Lymphocytes % (auto) 9.8 %; Monocytes # (auto) 1.01 K/uL (0.11-0.59); Monocytes % (auto) 10.6 %; Neutrophils # (auto) 7.32 K/uL (1.4-6.5); Neutrophils % (auto) 76.8 %
[2021-10-17] MEDS ORDERED: POTASSIUM CHLORIDE 10 MEQ / 100ML WTR IV STA (09:34)
[2021-10-17] MEDS ORDERED: STAT IV STA (09:38)
[2021-10-17] MEDS: VENLAFAXINE HCL XR 75 MG CAPXR PO SCH ×2 (09:56→09:58)
[2021-10-17] MEDS: POTASSIUM CHLORIDE CRTAB 20 MEQ TABCR PO SCH ×2 (09:56→09:59)
[2021-10-17] MEDS: ROSUVASTATIN CALCIUM 5 MG TAB PO SCH ×2 (09:56→09:59)
[2021-10-17] MEDS: NYSTATIN SUSP 500,000 U/5 ML UDC PO SCH ×3 (09:56→13:14)
[2021-10-17] MEDS ORDERED: CALCIUM GLUCONATE 10% 1,000 MG in DEXTROSE 5% 50 ML IV ONE (10:00)
[2021-10-17] MEDS ORDERED: MAGNESIUM SULFATE / D5W 1 GM/100 ML BAG IV ONE (10:00)
[2021-10-17] MEDS: POTASSIUM CHLORIDE / WTR 10 MEQ/100 ML PLCT IV SCH ×4 (10:46→14:20)
[2021-10-17 12:14] VITALS: BP 113/76; TEMP 98.4
--- NOTE | 2021-10-17 14:13 | Discharge Summary ---
Date of Service October 17, 2021 Admission HPI Per Admitting Provider Galina De Leon is a 61-year-old female with stage IV squamous cell lung cancer who [facility] due to decreased oral intake, increasingly weak and confused. She started a fentanyl patch 3 weeks ago and has been more confused since increasing dosage change to 25 mcg - her feels her symptoms are related to this dose change. She is also prescribed oxycodone which she takes 3-4 times a day. Confusion has been getting progressively worse over the last 2-3 weeks. However at the same time she is also receiving radiation therapy to her arm and pelvis in addition to ch emotherapy with carboplatin/paclitaxel/pembrolizumab which started on November 02. Her reports buying her boost drinks but she only able to manage one a day. She denies any dysphagia or odynophagia - only just not feeling like she wants to eat. No nausea, vomiting, abdominal pain, change on bowels, melena or bright red blood in stool. This poor appeite has been going on for 2-3 weeks and pre-dates her chemotherapy. She was treated for a sinus infection in the ER on 09/29/21 however reports no current sinus pain or nasal congestion. No new cough or shortness of breath however she was started on oxygen yesterday. In the ER she was noted to be pancytopenic with absolute neutrophil count of 0.44 Of note she underwent ORIF to her left humerus on 09/10/21 at [facility] but still has the stitches in place as they were waiting for follow up down at [place]. Stitches have been in the last month. [facility] in Aug. She notes this is the only place she currently has pain, although if moving her arm around with significant issue. In the ER due to mentioning a low grade fever of over 100 degrees Fahrenheit for the last 2 days she was treated with empiric antibiotics. However her reports she never had a fever above 101 degrees Fahrenheit. It was also recommend admission due to her decreased oral intake, confusion and generalized weakness. Principal Diagnosis toxic encephalopathy secondary to fentanyl and Marinol Metabolic encephalopathy secondary to fungal UTI present on admission metastatic lung cancer hypokalemia hypomagnesemia Cecil albicans urinary tract infection present on admission Discharge Exam The patient appeared much improved Vital signs as documented. Lungs are clear to auscultation and appear unlabored Cardiac exam, Rhythm is regular.. No murmurs, rubs or gallops. Abdominal exam reveals normal bowel sounds, soft non tender, no masses Extremities are nonedematous and both pedal pulses are normal. Patient has chronic pain from her large burden of skeletal metastasis Neurologic exam is alert and oriented, no focal loss of strength or sensation Skin is without bruises or rashes Psychologically is without concerns for anxiety or depression. Discharge Data Allergies Allergy/AdvReac Type Severity Reaction Status Date / Time No Known Allergies Allergy Verified 10/14/21 15:35 Consultations 10/14/21 17:17 ED Decision to Admit Stat 10/15/21 06:42 Consult Oncology Routine Ordered Studies 10/14/21 14:24 CT abd pelvis IV con only Stat CT angio chest PE protocol Stat CT head/brain wo con Stat Hospital Course (1) Neutropenic fever: neutropenia with fevers prehospital neutropenia now resolved antibiotics will be discontinued Previously given vancomycin and cefepime urine and blood cultures negative to date No clinical source, however urine shows cecil albicans will send home on a two week of diflucan 200mg po daily Neupogen injections x1 on 10/15/2021 (2) Metastatic lung cancer (metastasis from lung to other site): Stage 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 Progression of metastatic disease since CT of August 24, 2021, as described above. This includes an enhancing lesion within the right L3-L4 neural foramen, a left retroperitoneal metastasis and omental implant. Redemonstration of an S1-S2 metastasis which results in moderate to severe central canal stenosis. Hypoenhancing foci within this lesion suggest radiation treatment response. (3) Generalized weakness: Generalized weakness and confusion. feels related to increasing Fentanyl dosing. It was stopped along with her Marinol. Her mental status did improve, CT scan on presentation does not show any signs of mets however this was a noncontrast study Toxic encephalopathy Discontinue fentanyl patch use oxycodone as needed (low tolerance to increase this) Metabolic encephalopathy did also contribute given fungal uti poa (4) Poor appetite: Pre dates her chemotherapy. Denies odynophagia or dysphagia. Concerning this is primarily related to her cancer but possibly also opiate use. Boost drinks Certainly chemo and electrolyte abnormalities may be making this worse acutely (5) Pancytopenia due to chemotherapy: neutropenic, rescued with neupogen (6) Hypomagnesemia: replete (7) Hypophosphatemia: replete (8) Laryngopharyngeal reflux: Continue famotidine 40mg PO daily VTE Prophylaxis - deferred Diet - regular Disposition - admit to med/tele Total Time Total Time Spent Total Time Spent (In Minutes): It required greater than 30 minutes to prepare this patient for discharge Discharge Plan Discharge Items Patient Disposition: Home - Self-Care Reason For Visit: NEUTROPENIC FEVER Discharge Diagnosis: neutropenic fever anemia, related to treatment low potassium fungal urinary tract infection Activity: Per Instructions section Non-emergency contact: Primary Care Provider and Oncologist Call non-emergency contact if: your symptoms worsen and you have a fever Follow-up/Referrals: Malorie Perkins CRNP [Primary Care Provider] - (PLEASE CALL YOUR PRIMARY CARE PROVIDER TO SCHEDULE A DISCHARGE FOLLOW-UP APPOINTMENT WITHIN 7-10 DAYS.) Fatmata Velasquez MD [Physician] - Diet: Regular Addtl Attending Provider Instructions: please continue to rest and recover monitor you self for fever and [facility] monday to make a follow up appointment. please be alert that we have held your Crestor, ( rosuvastatin), Marinol, and fentanyl patch and increased your potassium to 2 pills twice a day Day of discharge is discovered that you had a fungal urinary tract infection on urine culture you will be given a medication to take once a day for 14 days and continue to follow-up with your oncologist for outpatient surveillance of recovering Pending Studies at Discharge: No Stand-Alone Forms: My [facility], Smoking Cessation Medications and DC Order Prescriptions: New fluconazole 200 mg tablet 200 mg PO DAILY 14 Days Qty: 14 RF: 0 Continued oxycodone 5 mg tablet 10 mg PO Q4H PRN (Reason: Pain) RF: 0 venlafaxine 75 mg capsule,extended release 24hr 75 mg PO DAILY RF: 0 ondansetron 4 mg tablet,disintegrating 4 mg PO Q6H PRN (Reason: nausea and vomiting) Qty: 12 RF: 0 lorazepam [Ativan] 1 mg tablet 1 mg sublingual Q6H PRN (Reason: spasms) Qty: 12 RF: 0 famotidine 40 mg tablet 40 mg PO QPM RF: 0 hydrocodone-acetaminophen 10-325 mg tablet 1 tab PO DIRECTED PRN (Reason: Pain) Qty: 20 RF: 0 Changed potassium chloride 20 mEq tablet extended release 40 meq PO BID Qty: 120 RF: 3 Discontinued fentanyl 25 mcg/hr patch 72 hour 1 patch transdermal Q72H RF: 0 rosuvastatin 5 mg tablet 5 mg PO DAILY RF: 0 dronabinol 5 mg capsule 5 mg PO AC RF: 0 Discharge Orders: Discharge Order (Routine); Ordered 10/17/21 Ordered By: Jacob Karimi Admission Data Admit Date/Time: 10/14/21 18:10 Attending Provider: Jacob Karimi Admit Provider: William Claudio Primary Care Provider: Malorie Perkins Other Providers: William Claudio ; Fatmata Velasquez Coding Level of Care Code D/C DAY MANAGEMENT >30 MINS Diagnoses Neutropenic fever D70.9; R50.81 Metastatic lung cancer (metastasis from lung to other site) C34.90 Laterality: unspecified laterality Generalized weakness R53.1 Poor appetite R63.0 Pancytopenia due to chemotherapy D61.810 Hypomagnesemia E83.42 Hypophosphatemia E83.39 Laryngopharyngeal reflux K21.9
[2021-10-17 15:41] VITALS: PULSE 97
== END 2021-10-17 16:31 | disposition home or self-care (01) | DRG 808 ==
LOC: ED 12:56 → 2W 18:10 → SUATTDRO 18:10 → 2W 22:12